=== PATIENT | male | born 1995 | race American Indian/Alaskan Native ===

== ENCOUNTER 2020-12-22 18:05 | Inpatient (IN) | payer OTHER ==
[2020-12-22] MEDS ORDERED: LIP THERAPY VASELINE TP PRN (18:21)
[2020-12-22] MEDS ORDERED: MINERAL OIL/PETROLATUM, WHITE OPHTH OINT 3.5 GM OU PRN (18:21)
[2020-12-22] MEDS ORDERED: SODIUM CHLORIDE 0.9% 1000 ML 1,000 ML IV ONE (18:22)
--- NOTE | 2020-12-22 18:28 | Emergency Department Report ---
HPI - General Time Seen by Provider: 12/22/20 18:21 - HPI HPI: This is a 25-year-old -[place] male who presents to the emergency department with the complaint of respiratory distress. Initially it was thought that the patient was having an asthma attack. He has been complaining of shortness of breath and wheezing over the past 1 to 2 days. Allegedly the patient has been using either his albuterol inhaler or nebulizer without much relief. Patient came home this afternoon and collapsed in the bathroom. EMS was called and found the patient in respiratory distress and unresponsive. He received bag valve ventilation and they attempted to intubate the patient but he was clamped down. He received Solu-Medrol and magnesium and then just before arrival he received a dose of epinephrine. He was brought into room #21 where the patient does appear to have very diminished breath sounds with wheezing heard. He is extremely altered but became very combative. After about 1 to 2 minutes of being combative, the patient suddenly went limp and it was difficult to palpate a pulse. CPR was initiated. The patient was intubated, received 2 rounds of epinephrine, 1 dose of sodium bicarbonate and had ROSC. I was later notified that the patient's girlfriend is outside and says that he may have taken some Xanax and potentially something called "bishop." He has never been to this emergency department previously. ED Review of Systems ROS: Stated complaint: ASTHMA/ELKIN Other details as noted in HPI Comment: Unobtainable due to pts medical conditions Physical Exam - Physical Exam Physical Exam: GENERAL: The patient is well-developed well-nourished. HENT: Normocephalic. Atraumatic. Patient has moist mucous membranes. EYES: Pupils equal reactive to light bilaterally. NECK: Supple. Trachea is midline. CHEST/LUNGS: Severely decreased breath sounds. Shallow respirations. Some wheezing heard throughout the chest. HEART/CARDIOVASCULAR: Regular. There is moderate tachycardia. There is no murmur. ABDOMEN: Abdomen is soft, nontender. Patient has normal bowel sounds. SKIN: Skin is warm and dry. NEURO: Patient is awake but confused and combative. Not following commands. MUSCULOSKELETAL: There is no obvious deformity. There is no limitation range of motion. - ABG Interpretation Ph: 7.142 PCO2: 60 PO2: 606 Bicarbonate: 20 Interpretation: respiratory acidosis, metabolic acidosis - Central Line Placement Right Femoral Consent Obtained: emergent situation Prep: mask, gown, gloves Central Line Prep: Chlorhexidine scrub Ultrasound Used for Placement: No Central Line Lumen Inserted: triple Reason for Insertion: Volume Resuscitation Bloods Obtained for Lab: Yes Central Line Position: good blood return, all ports aspirated, flus, sutured in place with nyl Dressing Applied: Tegaderm Patient Tolerated Procedure: well Complications: none - Intubation Time Out Performed: No Laryngoscope: other (Glidescope) Size: 4 ET Tube Size: 7.5 Tube Secured Depth (cm): 24 Tube Secured Location: teeth Tube Placement Confirmation: visualized tube passing t, equal breath sounds bilat, confirmation by capnometr Intubation Complications: none ED Medical Decision Making - Lab Data Result diagrams: 12/22/20 18:47 12/22/20 18:47 Lab Results 12/22/20 12/22/20 12/22/20 Range/Units 18:05 18:11 18:47 WBC 14.0 H (4.5-11.0) K/mm3 RBC 4.10 (3.65-5.03) M/mm3 Hgb 13.2 (11.8-15.2) gm/dl Hct 40.9 (35.5-45.6) % MCV 100 H (84-94) fl MCH 32 (28-32) pg MCHC 32 (32-34) % RDW 13.9 (13.2-15.2) % Plt Count 228 (140-440) K/mm3 Lymph # (Auto) Inspector Sheet Metal Parts Add Manual Diff Complete Total Counted 100 Seg Neuts % (Manual) 42.0 (40.0-70.0) % Lymphocytes % (Manual) 51.0 H (13.4-35.0) % Monocytes % (Manual) 2.0 (0.0-7.3) % Eosinophils % (Manual) 5.0 H (0.0-4.3) % Nucleated RBC % Not Reportable Seg Neutrophils # Man 5.9 (1.8-7.7) K/mm3 Band Neutrophils # 0.0 K/mm3 Lymphocytes # (Manual) 7.1 H (1.2-5.4) K/mm3 Abs React Lymphs (Man) 0.0 K/mm3 Monocytes # (Manual) 0.3 (0.0-0.8) K/mm3 Eosinophils # (Manual) 0.7 H (0.0-0.4) K/mm3 Basophils # (Manual) 0.0 (0.0-0.1) K/mm3 Metamyelocytes # 0.0 K/mm3 Myelocytes # 0.0 K/mm3 Promyelocytes # 0.0 K/mm3 Blast Cells # 0.0 K/mm3 WBC Morphology Not Reportable Hypersegmented Neuts Not Reportable Hyposegmented Neuts Not Reportable Hypogranular Neuts Not Reportable Smudge Cells Not Reportable Toxic Granulation Not Reportable Toxic Vacuolation Not Reportable Dohle Bodies Not Reportable Pelger-Huet Anomaly Not Reportable Kasia Rods Not Reportable Platelet Estimate Consistent w auto Clumped Platelets Not Reportable Plt Clumps, EDTA Not Reportable Large Platelets Not Reportable Giant Platelets Not Reportable Platelet Satelliting Not Reportable Plt Morphology Comment Not Reportable RBC Morphology Normal Dimorphic RBCs Not Reportable Polychromasia Not Reportable Hypochromasia Not Reportable Poikilocytosis Not Reportable Anisocytosis Not Reportable Microcytosis Not Reportable Macrocytosis Not Reportable Spherocytes Not Reportable Pappenheimer Bodies Not Reportable Sickle Cells Not Reportable Target Cells Not Reportable Tear Drop Cells Not Reportable Ovalocytes Not Reportable Helmet Cells Not Reportable [place] Bodies Not Reportable [place] Rings Not Reportable Joice Cells Not Reportable Bite Cells Not Reportable Crenated Cell Not Reportable Elliptocytes Not Reportable Acanthocytes (Spur) Not Reportable Rouleaux Not Reportable Hemoglobin C Crystals Not Reportable Schistocytes Not Reportable Malaria parasites Not Reportable Dave Bodies Not Reportable Hem Pathologist Commnt No PT (12.2-14.9) Sec. INR (0.87-1.13) APTT (24.2-36.6) Sec. D-Dimer (0-234) ng/mlDDU ABG pH (7.320-7.450) POC ABG pCO2 (32.0-48.0) mmHg POC ABG pO2 (83-108) mmHg POC ABG HCO3 ABG O2 Saturation (0-100) POC ABG Base Excess ABG Hemoglobin (12.0-17.5) ABG Oxyhemoglobin (94-98) ABG Methemoglobin (0.0-1.5) ABG Sodium (136.0-145.0) mmol/L ABG Potassium (3.40-4.50) mmol/L ABG Chloride (98-107) mmol/L ABG Glucose (65-95) mg/dL Carboxyhemoglobin (0.5-1.5) FiO2 % Sodium (137-145) mmol/L Potassium (3.6-5.0) mmol/L Chloride (98-107) mmol/L Carbon Dioxide (22-30) mmol/L Anion Gap mmol/L BUN (9-20) mg/dL Creatinine (0.8-1.3) mg/dL Estimated GFR ml/min BUN/Creatinine Ratio % Glucose (75-100) mg/dL POC Glucose 119 H (70-105) mg/dL Lactic Acid (0.7-2.0) mmol/L Calcium (8.4-10.2) mg/dL Total Bilirubin (0.1-1.2) mg/dL AST (5-40) units/L ALT (7-56) units/L Alkaline Phosphatase (35-129) units/L Ammonia (25-60) umol/L Total Creatine Kinase (55-170) units/L Troponin T (0.00-0.029) ng/mL Total Protein (6.3-8.2) g/dL Albumin (3.9-5) g/dL Albumin/Globulin Ratio % Arterial Blood Glucose (65-95) mg/dL Arterial Blood Ionized Calcium (4.6-5.3) mg/dL Salicylates (2.8-20.0) mg/dL Urine Opiates Screen Negative Urine Methadone Screen Negative Acetaminophen (10.0-30.0) ug/mL Ur Barbiturates Screen Negative Ur Phencyclidine Scrn Negative Ur Amphetamines Screen Negative U Benzodiazepines Scrn Negative Urine Cocaine Screen Negative U Marijuana (THC) Screen Positive Drugs of Abuse Note Disclamer Plasma/Serum Alcohol (0-0.07) % 12/22/20 12/22/20 12/22/20 Range/Units 18:47 18:47 18:47 WBC (4.5-11.0) K/mm3 RBC (3.65-5.03) M/mm3 Hgb (11.8-15.2) gm/dl Hct (35.5-45.6) % MCV (84-94) fl MCH (28-32) pg MCHC (32-34) % RDW (13.2-15.2) % Plt Count (140-440) K/mm3 Lymph # (Auto) Add Manual Diff Total Counted Seg Neuts % (Manual) (40.0-70.0) % Lymphocytes % (Manual) (13.4-35.0) % Monocytes % (Manual) (0.0-7.3) % Eosinophils % (Manual) (0.0-4.3) % Nucleated RBC % Seg Neutrophils # Man (1.8-7.7) K/mm3 Band Neutrophils # K/mm3 Lymphocytes # (Manual) (1.2-5.4) K/mm3 Abs React Lymphs (Man) K/mm3 Monocytes # (Manual) (0.0-0.8) K/mm3 Eosinophils # (Manual) (0.0-0.4) K/mm3 Basophils # (Manual) (0.0-0.1) K/mm3 Metamyelocytes # K/mm3 Myelocytes # K/mm3 Promyelocytes # K/mm3 Blast Cells # K/mm3 WBC Morphology Hypersegmented Neuts Hyposegmented Neuts Hypogranular Neuts Smudge Cells Toxic Granulation Toxic Vacuolation Dohle Bodies Pelger-Huet Anomaly Kasia Rods Platelet Estimate Clumped Platelets Plt Clumps, EDTA Large Platelets Giant Platelets Platelet Satelliting Plt Morphology Comment RBC Morphology Dimorphic RBCs Polychromasia Hypochromasia Poikilocytosis Anisocytosis Microcytosis Macrocytosis Spherocytes Pappenheimer Bodies Sickle Cells Target Cells Tear Drop Cells Ovalocytes Helmet Cells [place] Bodies [place] Rings Joice Cells Bite Cells Crenated Cell Elliptocytes Acanthocytes (Spur) Rouleaux Hemoglobin C Crystals Schistocytes Malaria parasites Dave Bodies Hem Pathologist Commnt PT 16.0 H (12.2-14.9) Sec. INR 1.30 H (0.87-1.13) APTT 40.8 H (24.2-36.6) Sec. D-Dimer (0-234) ng/mlDDU ABG pH (7.320-7.450) POC ABG pCO2 (32.0-48.0) mmHg POC ABG pO2 (83-108) mmHg POC ABG HCO3 ABG O2 Saturation (0-100) POC ABG Base Excess ABG Hemoglobin (12.0-17.5) ABG Oxyhemoglobin (94-98) ABG Methemoglobin (0.0-1.5) ABG Sodium (136.0-145.0) mmol/L ABG Potassium (3.40-4.50) mmol/L ABG Chloride (98-107) mmol/L ABG Glucose (65-95) mg/dL Carboxyhemoglobin (0.5-1.5) FiO2 % Sodium 144 (137-145) mmol/L Potassium 5.1 H (3.6-5.0) mmol/L Chloride 102.1 (98-107) mmol/L Carbon Dioxide 11 L (22-30) mmol/L Anion Gap 36 mmol/L BUN 11 (9-20) mg/dL Creatinine 1.9 H (0.8-1.3) mg/dL Estimated GFR 43 ml/min BUN/Creatinine Ratio 6 % Glucose 132 H (75-100) mg/dL POC Glucose (70-105) mg/dL Lactic Acid 17.30 H* (0.7-2.0) mmol/L Calcium 8.9 (8.4-10.2) mg/dL Total Bilirubin 1.00 (0.1-1.2) mg/dL AST 47 H (5-40) units/L ALT 24 (7-56) units/L Alkaline Phosphatase 60 (35-129) units/L Ammonia (25-60) umol/L Total Creatine Kinase 830 H (55-170) units/L Troponin T < 0.010 (0.00-0.029) ng/mL Total Protein 5.8 L (6.3-8.2) g/dL Albumin 3.7 L (3.9-5) g/dL Albumin/Globulin Ratio 1.8 % Arterial Blood Glucose (65-95) mg/dL Arterial Blood Ionized Calcium (4.6-5.3) mg/dL Salicylates (2.8-20.0) mg/dL Urine Opiates Screen Urine Methadone Screen Acetaminophen (10.0-30.0) ug/mL Ur Barbiturates Screen Ur Phencyclidine Scrn Ur Amphetamines Screen U Benzodiazepines Scrn Urine Cocaine Screen U Marijuana (THC) Screen Drugs of Abuse Note Plasma/Serum Alcohol (0-0.07) % 12/22/20 12/22/20 12/22/20 Range/Units 18:47 18:47 18:47 WBC (4.5-11.0) K/mm3 RBC (3.65-5.03) M/mm3 Hgb (11.8-15.2) gm/dl Hct (35.5-45.6) % MCV (84-94) fl MCH (28-32) pg MCHC (32-34) % RDW (13.2-15.2) % Plt Count (140-440) K/mm3 Lymph # (Auto) Add Manual Diff Total Counted Seg Neuts % (Manual) (40.0-70.0) % Lymphocytes % (Manual) (13.4-35.0) % Monocytes % (Manual) (0.0-7.3) % Eosinophils % (Manual) (0.0-4.3) % Nucleated RBC % Seg Neutrophils # Man (1.8-7.7) K/mm3 Band Neutrophils # K/mm3 Lymphocytes # (Manual) (1.2-5.4) K/mm3 Abs React Lymphs (Man) K/mm3 Monocytes # (Manual) (0.0-0.8) K/mm3 Eosinophils # (Manual) (0.0-0.4) K/mm3 Basophils # (Manual) (0.0-0.1) K/mm3 Metamyelocytes # K/mm3 Myelocytes # K/mm3 Promyelocytes # K/mm3 Blast Cells # K/mm3 WBC Morphology Hypersegmented Neuts Hyposegmented Neuts Hypogranular Neuts Smudge Cells Toxic Granulation Toxic Vacuolation Dohle Bodies Pelger-Huet Anomaly Kasia Rods Platelet Estimate Clumped Platelets Plt Clumps, EDTA Large Platelets Giant Platelets Platelet Satelliting Plt Morphology Comment RBC Morphology Dimorphic RBCs Polychromasia Hypochromasia Poikilocytosis Anisocytosis Microcytosis Macrocytosis Spherocytes Pappenheimer Bodies Sickle Cells Target Cells Tear Drop Cells Ovalocytes Helmet Cells [place] Bodies [place] Rings Makayla Cells Bite Cells Crenated Cell Elliptocytes Acanthocytes (Spur) Rouleaux Hemoglobin C Crystals Schistocytes Malaria parasites Dave Bodies Hem Pathologist Commnt PT (12.2-14.9) Sec. INR (0.87-1.13) APTT (24.2-36.6) Sec. D-Dimer (0-234) ng/mlDDU ABG pH (7.320-7.450) POC ABG pCO2 (32.0-48.0) mmHg POC ABG pO2 (83-108) mmHg POC ABG HCO3 ABG O2 Saturation (0-100) POC ABG Base Excess ABG Hemoglobin (12.0-17.5) ABG Oxyhemoglobin (94-98) ABG Methemoglobin (0.0-1.5) ABG Sodium (136.0-145.0) mmol/L ABG Potassium (3.40-4.50) mmol/L ABG Chloride (98-107) mmol/L ABG Glucose (65-95) mg/dL Carboxyhemoglobin (0.5-1.5) FiO2 % Sodium (137-145) mmol/L Potassium (3.6-5.0) mmol/L Chloride (98-107) mmol/L Carbon Dioxide (22-30) mmol/L Anion Gap mmol/L BUN (9-20) mg/dL Creatinine (0.8-1.3) mg/dL Estimated GFR ml/min BUN/Creatinine Ratio % Glucose (75-100) mg/dL POC Glucose (70-105) mg/dL Lactic Acid (0.7-2.0) mmol/L Calcium (8.4-10.2) mg/dL Total Bilirubin (0.1-1.2) mg/dL AST (5-40) units/L ALT (7-56) units/L Alkaline Phosphatase (35-129) units/L Ammonia 690.0 H (25-60) umol/L Total Creatine Kinase (55-170) units/L Troponin T (0.00-0.029) ng/mL Total Protein (6.3-8.2) g/dL Albumin (3.9-5) g/dL Albumin/Globulin Ratio % Arterial Blood Glucose (65-95) mg/dL Arterial Blood Ionized Calcium (4.6-5.3) mg/dL Salicylates < 0.3 L (2.8-20.0) mg/dL Urine Opiates Screen Urine Methadone Screen Acetaminophen 5.0 L (10.0-30.0) ug/mL Ur Barbiturates Screen Ur Phencyclidine Scrn Ur Amphetamines Screen U Benzodiazepines Scrn Urine Cocaine Screen U Marijuana (THC) Screen Drugs of Abuse Note Plasma/Serum Alcohol (0-0.07) % 12/22/20 12/22/20 12/22/20 Range/Units 18:47 19:41 20:18 WBC (4.5-11.0) K/mm3 RBC (3.65-5.03) M/mm3 Hgb (11.8-15.2) gm/dl Hct (35.5-45.6) % MCV (84-94) fl MCH (28-32) pg MCHC (32-34) % RDW (13.2-15.2) % Plt Count (140-440) K/mm3 Lymph # (Auto) Add Manual Diff Total Counted Seg Neuts % (Manual) (40.0-70.0) % Lymphocytes % (Manual) (13.4-35.0) % Monocytes % (Manual) (0.0-7.3) % Eosinophils % (Manual) (0.0-4.3) % Nucleated RBC % Seg Neutrophils # Man (1.8-7.7) K/mm3 Band Neutrophils # K/mm3 Lymphocytes # (Manual) (1.2-5.4) K/mm3 Abs React Lymphs (Man) K/mm3 Monocytes # (Manual) (0.0-0.8) K/mm3 Eosinophils # (Manual) (0.0-0.4) K/mm3 Basophils # (Manual) (0.0-0.1) K/mm3 Metamyelocytes # K/mm3 Myelocytes # K/mm3 Promyelocytes # K/mm3 Blast Cells # K/mm3 WBC Morphology Hypersegmented Neuts Hyposegmented Neuts Hypogranular Neuts Smudge Cells Toxic Granulation Toxic Vacuolation Dohle Bodies Pelger-Huet Anomaly Kasia Rods Platelet Estimate Clumped Platelets Plt Clumps, EDTA Large Platelets Giant Platelets Platelet Satelliting Plt Morphology Comment RBC Morphology Dimorphic RBCs Polychromasia Hypochromasia Poikilocytosis Anisocytosis Microcytosis Macrocytosis Spherocytes Pappenheimer Bodies Sickle Cells Target Cells Tear Drop Cells Ovalocytes Helmet Cells [place] Bodies [place] Rings Makayla Cells Bite Cells Crenated Cell Elliptocytes Acanthocytes (Spur) Rouleaux Hemoglobin C Crystals Schistocytes Malaria parasites Dave Bodies Hem Pathologist Commnt PT (12.2-14.9) Sec. INR (0.87-1.13) APTT (24.2-36.6) Sec. D-Dimer 420.88 H (0-234) ng/mlDDU ABG pH 7.142 L (7.320-7.450) POC ABG pCO2 60.1 H (32.0-48.0) mmHg POC ABG pO2 606.7 H (83-108) mmHg POC ABG HCO3 20.1 ABG O2 Saturation 99.9 (0-100) POC ABG Base Excess -9.7 ABG Hemoglobin 15.4 (12.0-17.5) ABG Oxyhemoglobin 99.7 H (94-98) ABG Methemoglobin 0.2 (0.0-1.5) ABG Sodium 139.5 (136.0-145.0) mmol/L ABG Potassium 4.4 (3.40-4.50) mmol/L ABG Chloride 107.0 (98-107) mmol/L ABG Glucose 81 (65-95) mg/dL Carboxyhemoglobin 0 L (0.5-1.5) FiO2 % 100.0 Sodium (137-145) mmol/L Potassium (3.6-5.0) mmol/L Chloride (98-107) mmol/L Carbon Dioxide (22-30) mmol/L Anion Gap mmol/L BUN (9-20) mg/dL Creatinine (0.8-1.3) mg/dL Estimated GFR ml/min BUN/Creatinine Ratio % Glucose (75-100) mg/dL POC Glucose (70-105) mg/dL Lactic Acid (0.7-2.0) mmol/L Calcium (8.4-10.2) mg/dL Total Bilirubin (0.1-1.2) mg/dL AST (5-40) units/L ALT (7-56) units/L Alkaline Phosphatase (35-129) units/L Ammonia (25-60) umol/L Total Creatine Kinase (55-170) units/L Troponin T (0.00-0.029) ng/mL Total Protein (6.3-8.2) g/dL Albumin (3.9-5) g/dL Albumin/Globulin Ratio % Arterial Blood Glucose 81 (65-95) mg/dL Arterial Blood Ionized Calcium 4.8 (4.6-5.3) mg/dL Salicylates (2.8-20.0) mg/dL Urine Opiates Screen Urine Methadone Screen Acetaminophen (10.0-30.0) ug/mL Ur Barbiturates Screen Ur Phencyclidine Scrn Ur Amphetamines Screen U Benzodiazepines Scrn Urine Cocaine Screen U Marijuana (THC) Screen Drugs of Abuse Note Plasma/Serum Alcohol < 0.01 (0-0.07) % - EKG Data -: EKG Interpreted by Me EKG shows normal: sinus rhythm, axis (Left axis deviation), intervals, QRS complexes (Left anterior fascicular block), ST-T waves Rate: normal - EKG Data When compared to previous EKG there are: previous EKG unavailable Interpretation: other (Sinus rhythm at 91 bpm, left axis deviation, left anterior fascicular block. No ST elevation CA) - Radiology Data Radiology results: report reviewed, image reviewed interpreted by me: Chest x-ray shows an endotracheal tube a few centimeters above the myrna. No pneumonia, pneumothorax, pleural effusions. CT HEAD WITHOUT CONTRAST INDICATION / CLINICAL INFORMATION: Altered mental status. TECHNIQUE: All CT scans at this location are performed using CT dose reduction for ALARA by means of automated exposure control. COMPARISON: None available. FINDINGS: HEMORRHAGE: None. EXTRA-AXIAL SPACES: Normal in size and morphology for the patient's age. VENTRICULAR SYSTEM: Normal in size and morphology for the patient's age. CEREBRAL PARENCHYMA: No significant abnormality. No acute territorial infarct. MIDLINE SHIFT OR HERNIATION: None. CEREBELLUM / BRAINSTEM: No significant abnormality. ORBITS: Normal as visualized. SOFT TISSUES of HEAD: No significant abnormality. CALVARIUM: No s ignificant abnormality. PARANASAL SINUSES / MASTOID AIR CELLS: Scattered fluid is seen throughout the ethmoid sinuses. ADDITIONAL FINDINGS: None. IMPRESSION: No acute intracranial abnormality. Critical Care Time: Yes Critical care time in (mins) excluding proc time.: 40 Critical care attestation.: If time is entered above; I have spent that time in minutes in the direct care of this critically ill patient, excluding procedure time. Critical care time was spent on this patient in doing his initial evaluation, multiple reevaluations, supervision of ACLS protocol, IV antibiotics, IV fluid resuscitation, multiple discussions with the patient's mother, discussion with the hospitalist service. This does not include the time spent on separately billable procedures such as the intubation and the central line placement. Critical Care Time: 40 minutes ED Disposition Clinical Impression: Cardiac arrest, ITZEL (acute kidney injury), Lactic acidosis Acute respiratory failure Qualifiers: Respiratory failure complication: hypercapnia Qualified Code(s): J96.02 - Acute respiratory failure with hypercapnia UTI (urinary tract infection) Qualifiers: Urinary tract infection type: acute cystitis Hematuria presence: without hematuria Qualified Code(s): N30.00 - Acute cystitis without hematuria Disposition: DC-09 OP ADMIT IP TO THIS HOSP Is pt being admited?: Yes Condition: Critical Time of Disposition: 22:15
[2020-12-22] MEDS: fentaNYL DRIP Premix 2,000 MCG/100 ML BAG IV SCH (18:30)
[2020-12-22] MEDS: fentaNYL 100 MCG/2 ML INJ IV PRN ×3 (18:40→19:00)
[2020-12-22 19:02] LABS: Hematocrit 40.9 % (35.5-45.6); Hemoglobin 13.2 gm/dl (11.8-15.2); Mean Corpuscular HGB Conc 32 % (32-34); Mean Corpuscular Volume 100 fl (84-94); Platelet Count 228 K/mm3 (140-440); Red Cell Distribution Width 13.9 % (13.2-15.2)
[2020-12-22 19:08] LABS: Bilirubin,Urine NEG (Negative); Blood,Urine NEG (Negative); Color,Urine Amber (Yellow)
[2020-12-22 19:12] LABS: Protein,Urine >500 mg/dL (Negative)
[2020-12-22 19:21] LABS: INR 1.3 (0.87-1.13)
[2020-12-22 19:22] LABS: Partial Thromboplastin Time 40.8 Sec. (24.2-36.6)
[2020-12-22] MEDS ORDERED: cefTRIAXone/NS 1 GM/50 ML 1 GM/50 ML BAG IV ONE (19:26)
[2020-12-22 19:27] LABS: Alanine Aminotransferase 24 units/L (7-56); Albumin 3.7 g/dL (3.9-5); BUN/Creatinine Ratio 6; Blood Urea Nitrogen 11 mg/dL (9-20); Calcium 8.9 mg/dL (8.4-10.2); Hemolysis Index 16
[2020-12-22 19:27] LABS: Amphetamine Screen,Urine Negative; Benzodiazepines Screen,Urine Negative; Cocaine Screen,Urine Negative; Methadone Screen,Urine Negative
[2020-12-22] MEDS: MIDAZOLAM 100 MG in SODIUM CHLORIDE 0.9% 80 ML IV SCH (19:41)
--- NOTE | 2020-12-22 19:46 | XRay Report ---
CHEST 1 VIEW 12/22/2020 6:38 PM INDICATION / CLINICAL INFORMATION: ETT placement. COMPARISON: None available. FINDINGS: SUPPORT DEVICES: Endotracheal tube has been placed 5.4 cm above the myrna. Esophagogastric tube has been placed below the diaphragm into the stomach. HEART / MEDIASTINUM: No significant abnormality. LUNGS / PLEURA: No significant pulmonary or pleural abnormality. No pneumothorax. ADDITIONAL FINDINGS: No significant additional findings. IMPRESSION: 1. Endotracheal tube in expected position. Signer Name: David Chaudhry MD Signed: 12/22/2020 7:41 PM Workstation Name: [id number]
[2020-12-22 19:51] LABS: Total Cells Counted 100
[2020-12-22 19:51] LABS: Cannabinoid Screen,Urine Positive; Opiate Screen,Urine Negative
[2020-12-22 19:52] LABS: Platelet Estimate Consistent w Auto; RBC Morphology Normal
[2020-12-22] MEDS ORDERED: EPINEPHrine 1 MG/10 ML SYRINGE ONE (21:45)
[2020-12-22] MEDS ORDERED: SODIUM BICARB 8.4% 50 MEQ/50 ML SYRINGE IV ONE (21:45)
--- NOTE | 2020-12-22 22:22 | Cat Scan Report ---
CT HEAD WITHOUT CONTRAST INDICATION / CLINICAL INFORMATION: Altered mental status. TECHNIQUE: All CT scans at this location are performed using CT dose reduction for ALARA by means of automated e xposure control. COMPARISON: None available. FINDINGS: HEMORRHAGE: None. EXTRA-AXIAL SPACES: Normal in size and morphology for the patient's age. VENTRICULAR SYSTEM: Normal in size and morphology for the patient's age. CEREBRAL PARENCHYMA: No significant abnormality. No acute territorial infarct. MIDLINE SHIFT OR HERNIATION: None. CEREBELLUM / BRAINSTEM: No significant abnormality. ORBITS: Normal as visualized. SOFT TISSUES of HEAD: No significant abnormality. CALVARIUM: No significant abnormality. PARANASAL SINUSES / MASTOID AIR CELLS: Scattered fluid is seen throughout the ethmoid sinuses. ADDITIONAL FINDINGS: None. IMPRESSION: No acute intracranial abnormality. Signer Name: Joseph Gomez MD Signed: 12/22/2020 10:17 PM Workstation Name: [id number]
[2020-12-22] MEDS ORDERED: MORPHINE 2 MG/1 ML INJ IV PRN (23:21)
[2020-12-22] MEDS ORDERED: ONDANSETRON 4 MG/2 ML INJ IV PRN (23:21)
[2020-12-22] MEDS ORDERED: MAGNESIUM HYDROXIDE (MOM) ORAL LIQD UDC PO PRN (23:21)
--- NOTE | 2020-12-22 23:40 | History and Physical Report ---
History of Present Illness Date of examination: 12/22/20 Date of admission: 12/22/20 22:15 Chief complaint: Respiratory Distress History of present illness: 25-year-old -[place]ian male with known history of asthma presents to the emergency room today with respiratory distress. He has been having shortness of breath and wheezing over the past 1 to 2 days. Was also said to have been using his inhaler without any significant improvement. EMS was called and patient was found to be in respiratory distress and became unresponsive. He received bag valve ventilation. Was said to have received steroids, epinephrine and magnesium sulfate prior to my evaluation. Patient was said to have coded upon arrival in the emergency room and was subsequently intubated. Further information gathered from the ER staff indicates that patient may have taking some Xanax and something called 'bishop'. 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 Work-up in the emergency room today reveals elevated lactic acid level, elevated creatinine of 1.9, total creatinine kinase of 830, and urinalysis revealing UTI. Chest x-ray and CT scan of the head were unremarkable. UDS was positive for marijuana. Patient is being admitted for anaphylactic reaction, asthma exacerbation and UTI. Past History Past Medical History: other (Asthma) Past Surgical History: No surgical history Social history: no significant social history Family history: no significant family history Medications and Allergies Allergies Allergy/AdvReac Type Severity Reaction Status Date / Time nut - unspecified Allergy Swelling Verified 12/22/20 21:15 Active Meds: Active Medications Albuterol/Ipratropium (Ipratropium/Albuterol Sulfate 3 Ml Ampul.Neb) 1 ampul IH Q6HRT [facility] Fentanyl (Fentanyl 100 Mcg/2 Ml Inj) 50 mcg IV Q10MIN PRN PRN Reason: ANALGESIA Last Admin: 12/22/20 19:00 Dose: 50 mcg Documented by: Heparin Sodium (Porcine) (Heparin 5,000 Unit/1 Ml Vial) 5,000 unit SUB-Q Q8HR [facility] Hydrophilic Ointment (Lip Therapy Vaseline) 1 applic TP Q2HR PRN PRN Reason: Dry Lips Fentanyl Citrate (Fentanyl Drip Premix) 2,000 mcg in 100 mls @ 4.083 mls/hr IV TITR [facility]KKI; Protocol Last Titration: 12/22/20 20:00 Dose: 2 mcg/kg/hr, 8.165 mls/hr Documented by: Midazolam HCl 100 mg/ Sodium (Chloride) 100 mls @ 2 mls/hr IV TITR [facility]KKI; Protocol Last Titration: 12/22/20 20:30 Dose: 3 mg/hr, 3 mls/hr Documented by: Sodium Chloride (Nacl 0.9% 1000 Ml) 1,000 mls @ 125 mls/hr IV DIRECT [facility] Ceftriaxone Sodium (Rocephin/Ns 1 Gm/50 Ml) 1 gm in 50 mls @ 100 mls/hr IV Q24H [facility]; Protocol Magnesium Hydroxide (Magnesium Hydroxide (Mom) Oral Liqd Udc) 30 ml PO Q4H PRN PRN Reason: Constipation Methylprednisolone Sodium Succinate (Methylprednisolone Sod Succinate 40 Mg/1 Ml Inj) 40 mg IV Q8HR [facility] Morphine Sulfate (Morphine 2 Mg/1 Ml Inj) 2 mg IV Q4H PRN PRN Reason: Pain, Moderate (4-6) Multi-Ingred Cream/Lotion/Oil/Oint (Mineral Oil/Petrolatum, White Ophth Oint 3.5 Gm) 1 applic OU Q4HR PRN PRN Reason: Dry Eye(s) Ondansetron HCl (Ondansetron 4 Mg/2 Ml Inj) 4 mg IV Q8H PRN PRN Reason: Nausea And Vomiting Sodium Chloride (Sodium Chloride 0.9% 10 Ml Flush Syringe) 10 ml IV BID [facility] Sodium Chloride (Sodium Chloride 0.9% 10 Ml Flush Syringe) 10 ml IV PRN PRN PRN Reason: LINE FLUSH Review of Systems ROS unobtainable: due to endotracheal tube Exam - Constitutional Vitals: Temp Pulse Resp BP Pulse Ox 92 H 18 117/69 99 12/22/20 23:00 12/22/20 23:00 12/22/20 23:00 12/22/20 23:00 General appearance: Present: well-nourished, other (Intubated) - EENT Eyes: Present: PERRL, EOM intact. Absent: scleral icterus ENT: hearing intact, clear oral mucosa, dentition normal - Neck Neck: Present: supple, normal ROM - Respiratory Respiratory effort: other (Currently intubated) Respiratory: bilateral: wheezing - Cardiovascular Rhythm: regular Heart Sounds: Present: S1 & S2. Absent: gallop, systolic murmur, diastolic murmur, rub, click - Extremities Extremities: no ischemia, pulses intact, pulses symmetrical, No edema, normal temperature, normal color, Full ROM Peripheral Pulses: within normal limits - Abdominal General gastrointestinal: Present: soft, non-tender, non-distended, normal bowel sounds. Absent: mass - Integumentary Integumentary: Present: clear, warm, dry. Absent: rash - Musculoskeletal Musculoskeletal: strength equal bilaterally - Psychiatric Psychiatric: appropriate mood/affect, intact judgment & insight, memory intact, cooperative - Neurologic Neurologic: CNII-XII intact, no focal deficits, moves all extremities HEART Score - HEART Score Troponin: Troponin T < 0.010 ng/mL (0.00-0.029) 12/22/20 18:47 Results - Labs CBC & Chem 7: 12/23/20 04:30 12/23/20 04:30 Labs: Abnormal lab results 12/22/20 12/22/20 12/22/20 Range/Units 18:11 18:47 18:47 WBC 14.0 H (4.5-11.0) K/mm3 MCV 100 H (84-94) fl Lymphocytes % (Manual) 51.0 H (13.4-35.0) % Eosinophils % (Manual) 5.0 H (0.0-4.3) % Lymphocytes # (Manual) 7.1 H (1.2-5.4) K/mm3 Eosinophils # (Manual) 0.7 H (0.0-0.4) K/mm3 PT 16.0 H (12.2-14.9) Sec. INR 1.30 H (0.87-1.13) APTT 40.8 H (24.2-36.6) Sec. D-Dimer (0-234) ng/mlDDU ABG pH (7.320-7.450) POC ABG pCO2 (32.0-48.0) mmHg POC ABG pO2 (83-108) mmHg ABG Oxyhemoglobin (94-98) Carboxyhemoglobin (0.5-1.5) Potassium (3.6-5.0) mmol/L Carbon Dioxide (22-30) mmol/L Creatinine (0.8-1.3) mg/dL Glucose (75-100) mg/dL POC Glucose 119 H (70-105) mg/dL Lactic Acid (0.7-2.0) mmol/L AST (5-40) units/L Ammonia (25-60) umol/L Total Creatine Kinase (55-170) units/L Total Protein (6.3-8.2) g/dL Albumin (3.9-5) g/dL Urine WBC (Auto) (0.0-6.0) /HPF Salicylates (2.8-20.0) mg/dL Acetaminophen (10.0-30.0) ug/mL 12/22/20 12/22/20 12/22/20 Range/Units 18:47 18:47 18:47 WBC (4.5-11.0) K/mm3 MCV (84-94) fl Lymphocytes % (Manual) (13.4-35.0) % Eosinophils % (Manual) (0.0-4.3) % Lymphocytes # (Manual) (1.2-5.4) K/mm3 Eosinophils # (Manual) (0.0-0.4) K/mm3 PT (12.2-14.9) Sec. INR (0.87-1.13) APTT (24.2-36.6) Sec. D-Dimer (0-234) ng/mlDDU ABG pH (7.320-7.450) POC ABG pCO2 (32.0-48.0) mmHg POC ABG pO2 (83-108) mmHg ABG Oxyhemoglobin (94-98) Carboxyhemoglobin (0.5-1.5) Potassium 5.1 H (3.6-5.0) mmol/L Carbon Dioxide 11 L (22-30) mmol/L Creatinine 1.9 H (0.8-1.3) mg/dL Glucose 132 H (75-100) mg/dL POC Glucose (70-105) mg/dL Lactic Acid 17.30 H* (0.7-2.0) mmol/L AST 47 H (5-40) units/L Ammonia 690.0 H (25-60) umol/L Total Creatine Kinase 830 H (55-170) units/L Total Protein 5.8 L (6.3-8.2) g/dL Albumin 3.7 L (3.9-5) g/dL Urine WBC (Auto) (0.0-6.0) /HPF Salicylates (2.8-20.0) mg/dL Acetaminophen (10.0-30.0) ug/mL 12/22/20 12/22/20 12/22/20 Range/Units 18:47 18:47 19:41 WBC (4.5-11.0) K/mm3 MCV (84-94) fl Lymphocytes % (Manual) (13.4-35.0) % Eosinophils % (Manual) (0.0-4.3) % Lymphocytes # (Manual) (1.2-5.4) K/mm3 Eosinophils # (Manual) (0.0-0.4) K/mm3 PT (12.2-14.9) Sec. INR (0.87-1.13) APTT (24.2-36.6) Sec. D-Dimer 420.88 H (0-234) ng/mlDDU ABG pH (7.320-7.450) POC ABG pCO2 (32.0-48.0) mmHg POC ABG pO2 (83-108) mmHg ABG Oxyhemoglobin (94-98) Carboxyhemoglobin (0.5-1.5) Potassium (3.6-5.0) mmol/L Carbon Dioxide (22-30) mmol/L Creatinine (0.8-1.3) mg/dL Glucose (75-100) mg/dL POC Glucose (70-105) mg/dL Lactic Acid (0.7-2.0) mmol/L AST (5-40) units/L Ammonia (25-60) umol/L Total Creatine Kinase (55-170) units/L Total Protein (6.3-8.2) g/dL Albumin (3.9-5) g/dL Urine WBC (Auto) (0.0-6.0) /HPF Salicylates < 0.3 L (2.8-20.0) mg/dL Acetaminophen 5.0 L (10.0-30.0) ug/mL 12/22/20 12/22/20 Range/Units 20:18 Unknown WBC (4.5-11.0) K/mm3 MCV (84-94) fl Lymphocytes % (Manual) (13.4-35.0) % Eosinophils % (Manual) (0.0-4.3) % Lymphocytes # (Manual) (1.2-5.4) K/mm3 Eosinophils # (Manual) (0.0-0.4) K/mm3 PT (12.2-14.9) Sec. INR (0.87-1.13) APTT (24.2-36.6) Sec. D-Dimer (0-234) ng/mlDDU ABG pH 7.142 L (7.320-7.450) POC ABG pCO2 60.1 H (32.0-48.0) mmHg POC ABG pO2 606.7 H (83-108) mmHg ABG Oxyhemoglobin 99.7 H (94-98) Carboxyhemoglobin 0 L (0.5-1.5) Potassium (3.6-5.0) mmol/L Carbon Dioxide (22-30) mmol/L Creatinine (0.8-1.3) mg/dL Glucose (75-100) mg/dL POC Glucose (70-105) mg/dL Lactic Acid (0.7-2.0) mmol/L AST (5-40) units/L Ammonia (25-60) umol/L Total Creatine Kinase (55-170) units/L Total Protein (6.3-8.2) g/dL Albumin (3.9-5) g/dL Urine WBC (Auto) 50.0 H (0.0-6.0) /HPF Salicylates (2.8-20.0) mg/dL Acetaminophen (10.0-30.0) ug/mL Assessment and Plan - Patient Problems (1) Acute respiratory failure Current Visit: Yes Status: Acute Qualifiers: Respiratory failure complication: hypercapnia Qualified Code(s): J96.02 - Acute respiratory failure with hypercapnia Plan to address problem: Possibly secondary to asthma exacerbation versus anaphylactic reaction Patient currently intubated and sedated We will place consult to special education teacher for further evaluation and recommendation. (2) Cardiac arrest Current Visit: Yes Status: Acute Plan to address problem: Patient successfully resuscitated in the emergency room. He is currently intubated. We will consult cardiology for evaluation. (3) ITZEL (acute kidney injury) Current Visit: Yes Status: Acute Plan to address problem: Patient placed on IV fluid normal saline. We will monitor BUN and creatinine. Consult placed to nephrology for evaluation. (4) Lactic acidosis Current Visit: Yes Status: Acute Plan to address problem: We will continue patient on IV fluid and monitor lactic acid level. (5) UTI (urinary tract infection) Current Visit: Yes Status: Acute Qualifiers: Urinary tract infection type: acute cystitis Hematuria presence: without hematuria Qualified Code(s): N30.00 - Acute cystitis without hematuria Plan to address problem: Patient placed on empiric IV antibiotics. Will await urine culture result. (6) Rhabdomyolysis Current Visit: Yes Status: Acute Plan to address problem: We will monitor for creatinine kinase level and continue on IV fluid. (7) DVT prophylaxis Current Visit: Yes Status: Acute Plan to address problem: Patient placed on subcutaneous heparin. (8) Full code status Current Visit: Yes Status: Acute Plan to address problem: Patient is a full code.
[2020-12-23] MEDS ORDERED: EPINEPHrine 1 MG/10 ML SYRINGE ONE (00:24)
[2020-12-23] MEDS: IPRATROPIUM/ALBUTEROL SULFATE 3 ML AMPUL.NEB IH SCH ×4 (02:18→21:19)
[2020-12-23] MEDS: MIDAZOLAM 100 MG in SODIUM CHLORIDE 0.9% 80 ML IV SCH (05:25)
[2020-12-23] MEDS: fentaNYL DRIP Premix 2,000 MCG/100 ML BAG IV SCH (05:25)
[2020-12-23] MEDS: methylPREDNISolone Sod Succinate 40 MG/1 ML INJ IV SCH ×3 (05:26→21:09)
[2020-12-23] MEDS: SODIUM CHLORIDE 0.9% 1000 ML 1,000 ML IV SCH (05:26)
[2020-12-23] MEDS: HEPARIN 5,000 UNIT/1 ML VIAL SUB-Q SCH ×3 (05:26→21:09)
[2020-12-23 05:56] LABS: Hematocrit 42.6 % (35.5-45.6); Hemoglobin 14.5 gm/dl (11.8-15.2); Mean Corpuscular HGB Conc 34 % (32-34); Mean Corpuscular Volume 95 fl (84-94); Platelet Count 213 K/mm3 (140-440); Red Blood Count 4.47 M/mm3 (3.65-5.03); Red Cell Distribution Width 13.6 % (13.2-15.2)
[2020-12-23 06:16] LABS: Calcium 7.9 mg/dL (8.4-10.2)
[2020-12-23 06:26] LABS: INR 1.03 (0.87-1.13)
[2020-12-23 07:12] LABS: Total Cells Counted 100
[2020-12-23 07:13] LABS: Platelet Estimate Consistent w Auto; RBC Morphology Normal
--- NOTE | 2020-12-23 08:29 | XRay Report ---
CHEST - 1 VIEW 0756 hours INDICATION: follow up respiratory failure COMPARISON: Yesterday FINDINGS: Support devices: Stable support device positioning. Heart: Stable cardiomediastinal silhouette. Lungs/pleura: The lungs remain clear with no evidence for infiltrate, pleural fluid or pneumothorax. Additional findings: None. IMPRESSION: Unchanged exam. Unremarkable AP chest. Signer Name: Patrick Harmon Jr, MD Signed: 12/23/2020 8:24 AM Workstation Name: [id number]
[2020-12-23] MEDS ORDERED: SODIUM POLYSTYRENE 15 GM/60 ML ORAL LIQD PO SCH (10:00)
[2020-12-23] MEDS: cefTRIAXone/NS 1 GM/50 ML 1 GM/50 ML BAG IV SCH (10:04)
[2020-12-23] MEDS: FAMOTIDINE 20 MG/2 ML INJ IV SCH (10:04)
[2020-12-23] MEDS: LACTATED RINGERS 1,000 ML IV SCH ×2 (10:09→18:00)
--- NOTE | 2020-12-23 12:21 | Consultation ---
History of Present Illness Consult date: 12/23/20 Consult reason: cardiac arrest History of present illness: Patient is a 25-year who was brought in by EMS with altered mental status and in respiratory distress. It is reported that while in the emergency department, the patient became unresponsive. ACLS protocol was initiated with ROSC. There were no ventricular arrhythmias reported. Subsequently, he was intubated and admitted to CCU. Labs in the emergency department revealed lactic acidosis, WBC of 18.6, potassium of 5.5 with a creatinine of 2.3. Elevated ammonia level at 690. There is also evidence of rhabdomyolysis and UTI. Head CT scan reports no acute abnormality and a chest x-ray is negative. His ECG is sinus rhythm with poor R wave progression. Past History Past Medical History: other (Asthma) Past Surgical History: No surgical history Social history: no significant social history Family history: no significant family history Medications and Allergies Allergies Allergy/AdvReac Type Severity Reaction Status Date / Time nut - unspecified Allergy Swelling Verified 12/22/20 21:15 Active Meds: Active Medications Albuterol/Ipratropium (Ipratropium/Albuterol Sulfate 3 Ml Ampul.Neb) 1 ampul IH Q6HRT [facility] Last Admin: 12/23/20 07:47 Dose: 1 ampul Documented by: Famotidine (Famotidine 20 Mg/2 Ml Inj) 20 mg IV DAILY [facility] Last Admin: 12/23/20 10:04 Dose: 20 mg Documented by: Fentanyl (Fentanyl 100 Mcg/2 Ml Inj) 50 mcg IV Q10MIN PRN PRN Reason: ANALGESIA Last Admin: 12/22/20 19:00 Dose: 50 mcg Documented by: Heparin Sodium (Porcine) (Heparin 5,000 Unit/1 Ml Vial) 5,000 unit SUB-Q Q8HR [facility] Last Admin: 12/23/20 05:26 Dose: 5,000 unit Documented by: Hydrophilic Ointment (Lip Therapy Vaseline) 1 applic TP Q2HR PRN PRN Reason: Dry Lips Fentanyl Citrate (Fentanyl Drip Premix) 2,000 mcg in 100 mls @ 4.083 mls/hr IV TITR [facility]KKI; Protocol Last Titration: 12/23/20 10:39 Dose: 4 mcg/kg/hr, 16.33 mls/hr Documented by: Midazolam HCl 100 mg/ Sodium (Chloride) 100 mls @ 2 mls/hr IV TITR [facility]; Protocol Last Titration: 12/23/20 10:30 Dose: 1 mg/hr, 1 mls/hr Documented by: Sodium Chloride (Nacl 0.9% 1000 Ml) 1,000 mls @ 125 mls/hr IV DIRECT [facility] Last Infusion: 12/23/20 10:09 Dose: 0 mls/hr Documented by: Ceftriaxone Sodium (Rocephin/Ns 1 Gm/50 Ml) 1 gm in 50 mls @ 100 mls/hr IV Q24H [facility]; Protocol Last Admin: 12/23/20 10:04 Dose: 100 mls/hr Documented by: Lactated Ringer's (Lactated Ringers) 1,000 mls @ 150 mls/hr IV DIRECT [facility] Stop: 12/25/20 16:24 Last Admin: 12/23/20 10:09 Dose: 150 mls/hr Documented by: Magnesium Hydroxide (Magnesium Hydroxide (Mom) Oral Liqd Udc) 30 ml PO Q4H PRN PRN Reason: Constipation Methylprednisolone Sodium Succinate (Methylprednisolone Sod Succinate 40 Mg/1 Ml Inj) 40 mg IV Q8HR [facility] Last Admin: 12/23/20 05:26 Dose: 40 mg Documented by: Morphine Sulfate (Morphine 2 Mg/1 Ml Inj) 2 mg IV Q4H PRN PRN Reason: Pain, Moderate (4-6) Multi-Ingred Cream/Lotion/Oil/Oint (Mineral Oil/Petrolatum, White Ophth Oint 3.5 Gm) 1 applic OU Q4HR PRN PRN Reason: Dry Eye(s) Ondansetron HCl (Ondansetron 4 Mg/2 Ml Inj) 4 mg IV Q8H PRN PRN Reason: Nausea And Vomiting Sodium Chloride (Sodium Chloride 0.9% 10 Ml Flush Syringe) 10 ml IV BID [facility] Last Admin: 12/23/20 10:05 Dose: 10 ml Documented by: Sodium Chloride (Sodium Chloride 0.9% 10 Ml Flush Syringe) 10 ml IV PRN PRN PRN Reason: LINE FLUSH Review of Systems ROS unobtainable: due to endotracheal tube Physical Examination Vital Signs Pulse Resp BP Pulse Ox 100 H 12 139/73 98 12/22/20 18:05 12/22/20 18:05 12/22/20 18:05 12/22/20 18:05 General appearance: other (alert but remains intubated on the vent) Cardiac: Positive: Reg Rate and Rhythm Neuro: Positive: Grossly Intact Extremities: Absent: edema Results 12/23/20 04:30 12/23/20 04:30 Cardiac Enzymes 12/22/20 Range/Units 18:47 AST 47 H (5-40) units/L Coagulation 12/22/20 12/23/20 Range/Units 18:47 04:30 PT 16.0 H 13.3 (12.2-14.9) Sec. INR 1.30 H 1.03 (0.87-1.13) APTT 40.8 H (24.2-36.6) Sec. CBC 12/22/20 12/23/20 Range/Units 18:47 04:30 WBC 14.0 H 18.6 H (4.5-11.0) K/mm3 RBC 4.10 4.47 (3.65-5.03) M/mm3 Hgb 13.2 14.5 (11.8-15.2) gm/dl Hct 40.9 42.6 (35.5-45.6) % Plt Count 228 213 (140-440) K/mm3 Lymph # (Auto) Physicist Nuclear Comprehensive Metabolic Panel 12/22/20 12/23/20 Range/Units 18:47 04:30 Sodium 144 140 (137-145) mmol/L Potassium 5.1 H 5.5 H (3.6-5.0) mmol/L Chloride 102.1 102.9 (98-107) mmol/L Carbon Dioxide 11 L 22 D (22-30) mmol/L BUN 11 26 H (9-20) mg/dL Creatinine 1.9 H 2.3 H (0.8-1.3) mg/dL Glucose 132 H 133 H (75-100) mg/dL Calcium 8.9 7.9 L (8.4-10.2) mg/dL AST 47 H (5-40) units/L ALT 24 (7-56) units/L Alkaline Phosphatase 60 (35-129) units/L Total Protein 5.8 L (6.3-8.2) g/dL Albumin 3.7 L (3.9-5) g/dL Assessment and Plan - Patient Problems (1) Acute respiratory failure Current Visit: Yes Status: Acute Qualifiers: Qualified Code(s): J96.02 - Acute respiratory failure with hypercapnia
[2020-12-23 13:58] LABS: Bilirubin,Urine NEG (Negative); Blood,Urine LG (Negative); Color,Urine Yellow (Yellow); Mucus,Urine FEW /HPF; Urobilinogen,Urine < 2.0 mg/dL (<2.0)
--- NOTE | 2020-12-23 14:32 | Progress Note ---
Assessment and Plan Assessment and plan: 25-year-old -[place] male with known history of asthma presents to the emergency room today with respiratory distress. He has been having shortness of breath and wheezing over the past 1 to 2 days. Was also said to have been using his inhaler without any significant improvement. EMS was called and patient was found to be in respiratory distress and became unresponsive. He received bag valve ventilation. Was said to have received steroids, epinephrine and magnesium sulfate prior to my evaluation. Patient was said to have coded upon arrival in the emergency room and was subsequently intubated. Further information gathered from the ER staff indicates that patient may have taking some Xanax and something called 'bishop'. 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 Work-up in the emergency room today reveals elevated lactic acid level, elevated creatinine of 1.9, total creatinine kinase of 830, and urinalysis revealing UTI. Chest x-ray and CT scan of the head were unremarkable. UDS was positive for marijuana. Patient is being admitted for anaphylactic reaction, asthma exacerbation and UTI. 12/23/20: Cardiology input noted, no acute cardiac issues, counselling provided on TSH use. Continue gentle hydration and monitor, Worsening WBC likely from steroids. Renal faliure noted, will monitor in the setting of rhabdomyolysis Discussed with father outside the room. Anticipate the patient will be extubated today. (1) Acute respiratory failure Current Visit: Yes Status: Acute Qualifiers: Respiratory failure complication: hypercapnia Qualified Code(s): J96.02 - Acute respiratory failure with hypercapnia Plan to address problem: Possibly secondary to asthma exacerbation versus anaphylactic reaction Patient currently intubated and sedated We will place consult to investigations director for further evaluation and recommendation. (2) Cardiac arrest Current Visit: Yes Status: Acute Plan to address problem: Patient successfully resuscitated in the emergency room. He is currently intubated. We will consult cardiology for evaluation. (3) ITZEL (acute kidney injury) secondary to ATN as a complication from rha bdomyolysis Current Visit: Yes Status: Acute Plan to address problem: Patient placed on IV fluid normal saline. We will monitor BUN and creatinine. Consult placed to nephrology for evaluation. (4) Lactic acidosis Current Visit: Yes Status: Acute Plan to address problem: We will continue patient on IV fluid and monitor lactic acid level. (5) UTI (urinary tract infection) Current Visit: Yes Status: Acute Qualifiers: Urinary tract infection type: acute cystitis Hematuria presence: without hematuria Qualified Code(s): N30.00 - Acute cystitis without hematuria Plan to address problem: Patient placed on empiric IV antibiotics. Will await urine culture result. (6) Rhabdomyolysis Current Visit: Yes Status: Acute Plan to address problem: We will monitor for creatinine kinase level and continue on IV fluid. (7) THC use abuse extensive counseling provided to the patient verbalized understanding 50 minutes counseling done (8) DVT prophylaxis Current Visit: Yes Status: Acute Plan to address problem: Patient placed on subcutaneous heparin. (9) Full code status Current Visit: Yes Status: Acute Plan to address problem: Patient is a full code. The high probability of a clinically significant, sudden or life threatening deterioration of the [pulmonary, renal] system(s) required my full and direct attention, intervention and personal management. The aggregate critical care time was [35 minutes] minutes. This time is in addition to time spent performing reported procedures but includes the following: [x] Data Review and interpretation [x] Patient assessment and monitoring of vital signs [x] Documentation [x] Medication orders and management History Interval history: Patient seen and examined, remains intubated but alert awake and oriented. Anxious a bit Hospitalist Physical - Physical exam Narrative exam: General appearance: Present: well-nourished, other (Intubated) - EENT Eyes: Present: PERRL, EOM intact. Absent: scleral icterus ENT: hearing intact, clear oral mucosa, dentition normal - Neck Neck: Present: supple, normal ROM - Respiratory Respiratory effort: other (Currently intubated) Respiratory: bilateral: wheezing - Cardiovascular Rhythm: regular Heart Sounds: Present: S1 & S2. Absent: gallop, systolic murmur, diastolic murmur, rub, click - Extremities Extremities: no ischemia, pulses intact, pulses symmetrical, No edema, normal temperature, normal color, Full ROM Peripheral Pulses: within normal limits - Abdominal General gastrointestinal: Present: soft, non-tender, non-distended, normal bowel sounds. Absent: mass - Integumentary Integumentary: Present: clear, warm, dry. Absent: rash - Musculoskeletal Musculoskeletal: strength equal bilaterally - Psychiatric Psychiatric: Anxious, intact judgment & insight, memory intact, cooperative - Neurologic Neurologic: CNII-XII intact, no focal deficits, moves all extremities - Constitutional Vitals: Temp Pulse Resp BP Pulse Ox 97.8 F 98 H 22 127/80 98 12/23/20 11:49 12/23/20 13:30 12/23/20 13:30 12/23/20 12:19 12/23/20 12:19 General appearance: Present: other (alert but remains intubated on the vent) HEART Score - HEART Score Troponin: Troponin T < 0.010 ng/mL (0.00-0.029) 12/22/20 18:47 Results - Labs CBC & Chem 7: 12/23/20 04:30 12/23/20 04:30 Labs: Laboratory Last Values WBC 18.6 K/mm3 (4.5-11.0) H 12/23/20 04:30 RBC 4.47 M/mm3 (3.65-5.03) 12/23/20 04:30 Hgb 14.5 gm/dl (11.8-15.2) 12/23/20 04:30 Hct 42.6 % (35.5-45.6) 12/23/20 04:30 MCV 95 fl (84-94) H 12/23/20 04:30 MCH 33 pg (28-32) H 12/23/20 04:30 MCHC 34 % (32-34) 12/23/20 04:30 RDW 13.6 % (13.2-15.2) 12/23/20 04:30 Plt Count 213 K/mm3 (140-440) 12/23/20 04:30 Lymph # (Auto) [employer] 12/22/20 18:47 Add Manual Diff Complete 12/23/20 04:30 Total Counted 100 12/23/20 04:30 Seg Neutrophils % [employer] 12/23/20 04:30 Seg Neuts % (Manual) 94.0 % (40.0-70.0) H 12/23/20 04:30 Lymphocytes % (Manual) 2.0 % (13.4-35.0) L 12/23/20 04:30 Monocytes % (Manual) 3.0 % (0.0-7.3) 12/23/20 04:30 Eosinophils % (Manual) 5.0 % (0.0-4.3) H 12/22/20 18:47 Metamyelocytes % 1.0 % 12/23/20 04:30 Nucleated RBC % Not Reportable 12/23/20 04:30 Seg Neutrophils # Man 17.5 K/mm3 (1.8-7.7) H 12/23/20 04:30 Band Neutrophils # 0.0 K/mm3 12/23/20 04:30 Lymphocytes # (Manual) 0.4 K/mm3 (1.2-5.4) L 12/23/20 04:30 Abs React Lymphs (Man) 0.0 K/mm3 12/23/20 04:30 Monocytes # (Manual) 0.6 K/mm3 (0.0-0.8) 12/23/20 04:30 Eosinophils # (Manual) 0.0 K/mm3 (0.0-0.4) 12/23/20 04:30 Basophils # (Manual) 0.0 K/mm3 (0.0-0.1) 12/23/20 04:30 Metamyelocytes # 0.2 K/mm3 12/23/20 04:30 Myelocytes # 0.0 K/mm3 12/23/20 04:30 Promyelocytes # 0.0 K/mm3 12/23/20 04:30 Blast Cells # 0.0 K/mm3 12/23/20 04:30 WBC Morphology Not Reportable 12/23/20 04:30 Hypersegmented Neuts Not Reportable 12/23/20 04:30 Hyposegmented Neuts Not Reportable 12/23/20 04:30 Hypogranular Neuts Not Reportable 12/23/20 04:30 Smudge Cells Not Reportable 12/23/20 04:30 Toxic Granulation Not Reportable 12/23/20 04:30 Toxic Vacuolation Not Reportable 12/23/20 04:30 Dohle Bodies Not Reportable 12/23/20 04:30 Pelger-Huet Anomaly Not Reportable 12/23/20 04:30 Kasia Rods Not Reportable 12/23/20 04:30 Platelet Estimate Consistent w auto 12/23/20 04:30 Clumped Platelets Not Reportable 12/23/20 04:30 Plt Clumps, EDTA Not Reportable 12/23/20 04:30 Large Platelets Not Reportable 12/23/20 04:30 Giant Platelets Not Reportable 12/23/20 04:30 Platelet Satelliting Not Reportable 12/23/20 04:30 Plt Morphology Comment Not Reportable 12/23/20 04:30 RBC Morphology Normal 12/23/20 04:30 Dimorphic RBCs Not Reportable 12/23/20 04:30 Polychromasia Not Reportable 12/23/20 04:30 Hypochromasia Not Reportable 12/23/20 04:30 Poikilocytosis Not Reportable 12/23/20 04:30 Anisocytosis Not Reportable 12/23/20 04:30 Microcytosis Not Reportable 12/23/20 04:30 Macrocytosis Not Reportable 12/23/20 04:30 Spherocytes Not Reportable 12/23/20 04:30 Pappenheimer Bodies Not Reportable 12/23/20 04:30 Sickle Cells Not Reportable 12/23/20 04:30 Target Cells Not Reportable 12/23/20 04:30 Tear Drop Cells Not Reportable 12/23/20 04:30 Ovalocytes Not Reportable 12/23/20 04:30 Helmet Cells Not Reportable 12/23/20 04:30 Mae-Leitchfield Bodies Not Reportable 12/23/20 04:30 Valatie Rings Not Reportable 12/23/20 04:30 Makayla Cells Not Reportable 12/23/20 04:30 Bite Cells Not Reportable 12/23/20 04:30 Crenated Cell Not Reportable 12/23/20 04:30 Elliptocytes Not Reportable 12/23/20 04:30 Acanthocytes (Spur) Not Reportable 12/23/20 04:30 Rouleaux Not Reportable 12/23/20 04:30 Hemoglobin C Crystals Not Reportable 12/23/20 04:30 Schistocytes Not Reportable 12/23/20 04:30 Malaria parasites Not Reportable 12/23/20 04:30 Dave Bodies Not Reportable 12/23/20 04:30 Hem Pathologist Commnt No 12/23/20 04:30 PT 13.3 Sec. (12.2-14.9) 12/23/20 04:30 INR 1.03 (0.87-1.13) 12/23/20 04:30 APTT 40.8 Sec. (24.2-36.6) H 12/22/20 18:47 D-Dimer 420.88 ng/mlDDU (0-234) H 12/22/20 19:41 ABG pH 7.267 (7.320-7.450) L 12/23/20 14:09 POC ABG pCO2 45.9 mmHg (32.0-48.0) 12/23/20 14:09 POC ABG pO2 165.1 mmHg (83-108) H 12/23/20 14:09 POC ABG HCO3 20.5 12/23/20 14:09 ABG O2 Saturation 99.2 (0-100) 12/23/20 14:09 POC ABG Base Excess -6.5 12/23/20 14:09 ABG Hemoglobin 14.6 (12.0-17.5) 12/23/20 14:09 ABG Oxyhemoglobin 98.6 (94-98) H 12/23/20 14:09 ABG Methemoglobin 0.2 (0.0-1.5) 12/23/20 14:09 ABG Sodium 136.9 mmol/L (136.0-145.0) 12/23/20 14:09 ABG Potassium 5.2 mmol/L (3.40-4.50) H 12/23/20 14:09 ABG Chloride 109.0 mmol/L (98-107) H 12/23/20 14:09 ABG Glucose 141 mg/dL (65-95) H 12/23/20 14:09 Carboxyhemoglobin 0.4 (0.5-1.5) L 12/23/20 14:09 FiO2 % 40.0 12/23/20 14:09 Sodium 140 mmol/L (137-145) 12/23/20 04:30 Potassium 5.5 mmol/L (3.6-5.0) H 12/23/20 04:30 Chloride 102.9 mmol/L (98-107) 12/23/20 04:30 Carbon Dioxide 22 mmol/L (22-30) D 12/23/20 04:30 Anion Gap 21 mmol/L 12/23/20 04:30 BUN 26 mg/dL (9-20) H 12/23/20 04:30 Creatinine 2.3 mg/dL (0.8-1.3) H 12/23/20 04:30 Estimated GFR 41 ml/min 12/23/20 04:30 BUN/Creatinine Ratio 11 % 12/23/20 04:30 Glucose 133 mg/dL (75-100) H 12/23/20 04:30 POC Glucose 119 mg/dL (70-105) H 12/22/20 18:11 Lactic Acid 1.90 mmol/L (0.7-2.0) 12/22/20 22:51 Calcium 7.9 mg/dL (8.4-10.2) L 12/23/20 04:30 Total Bilirubin 1.00 mg/dL (0.1-1.2) 12/22/20 18:47 AST 47 units/L (5-40) H 12/22/20 18:47 ALT 24 units/L (7-56) 12/22/20 18:47 Alkaline Phosphatase 60 units/L (35-129) 12/22/20 18:47 Ammonia 22.0 umol/L (25-60) L 12/22/20 22:51 Total Creatine Kinase 5407 units/L (55-170) H 12/23/20 04:23 Troponin T < 0.010 ng/mL (0.00-0.029) 12/22/20 18:47 Total Protein 5.8 g/dL (6.3-8.2) L 12/22/20 18:47 Albumin 3.7 g/dL (3.9-5) L 12/22/20 18:47 Albumin/Globulin Ratio 1.8 % 12/22/20 18:47 Arterial Blood Glucose 141 mg/dL (65-95) H 12/23/20 14:09 Arterial Blood Ionized Calcium 4.5 mg/dL (4.6-5.3) L 12/23/20 14:09 Urine Color Yellow (Yellow) 12/23/20 13:30 Urine Turbidity Slightly-cloudy (Clear) 12/23/20 13:30 Urine pH 5.0 (5.0-7.0) 12/23/20 13:30 Ur Specific [place] 1.010 (1.003-1.030) 12/23/20 13:30 Urine Protein 100 mg/dl mg/dL (Negative) 12/23/20 13:30 Urine Glucose (UA) Neg mg/dL (Negative) 12/23/20 13:30 Urine Ketones Tr mg/dL (Negative) 12/23/20 13:30 Urine Blood Lg (Negative) 12/23/20 13:30 Urine Nitrite Neg (Negative) 12/23/20 13:30 Urine Bilirubin Neg (Negative) 12/23/20 13:30 Urine Urobilinogen < 2.0 mg/dL (<2.0) 12/23/20 13:30 Ur Leukocyte Esterase Neg (Negative) 12/23/20 13:30 Urine WBC (Auto) 18.0 /HPF (0.0-6.0) H 12/23/20 13:30 Urine RBC (Auto) 120.0 /HPF (0.0-6.0) 12/23/20 13:30 U Epithel Cells (Auto) 1.0 /HPF (0-13.0) 12/23/20 13:30 Urine WBC Clumps 3+ /HPF 12/22/20 Unknown Urine Mucus Few /HPF 12/23/20 13:30 Salicylates < 0.3 mg/dL (2.8-20.0) L 12/22/20 18:47 Urine Opiates Screen Negative 12/22/20 18:05 Urine Methadone Screen Negative 12/22/20 18:05 Acetaminophen 5.0 ug/mL (10.0-30.0) L 12/22/20 18:47 Ur Barbiturates Screen Negative 12/22/20 18:05 Ur Phencyclidine Scrn Negative 12/22/20 18:05 Ur Amphetamines Screen Negative 12/22/20 18:05 U Benzodiazepines Scrn Negative 12/22/20 18:05 Urine Cocaine Screen Negative 12/22/20 18:05 U Marijuana (THC) Screen Positive 12/22/20 18:05 Drugs of Abuse Note Disclamer 12/22/20 18:05 Plasma/Serum Alcohol < 0.01 % (0-0.07) 12/22/20 18:47 Microbiology: Microbiology 12/22/20 18:50 Peripheral/Venous Blood Culture - Preliminary Culture in Progress 12/22/20 18:47 Peripheral/Venous Blood Culture - Preliminary Culture in Progress Meléndez/IV: Voiding Method Indwelling Catheter Active Medications - Current Medications Current Medications: Generic Name Dose Route Start Last Admin Trade Name Freq PRN Reason Stop Dose Admin Albuterol/Ipratropium 1 ampul 12/23/20 20:00 Ipratropium/Albuterol Sulfate 3 Ml Ampul.Neb IH TIDRT VIKKI Arformoterol Tartrate 15 mcg 12/23/20 20:00 Arformoterol 15 Mcg/2 Ml Nebu IH Q12HRT VIKKI Budesonide 0.5 mg 12/23/20 20:00 Budesonide 0.5 Mg/2 Ml Nebu IH Q12HRT VIKKI Famotidine 20 mg 12/23/20 10:00 12/23/20 10:04 Famotidine 20 Mg/2 Ml Inj IV 20 mg DAILY VIKKI Administration Fentanyl 50 mcg 12/22/20 18:21 12/22/20 19:00 Fentanyl 100 Mcg/2 Ml Inj IV 50 mcg Q10MIN PRN Administration ANALGESIA Heparin Sodium (Porcine) 5,000 unit 12/23/20 06:00 12/23/20 13:25 Heparin 5,000 Unit/1 Ml Vial SUB-Q 5,000 unit Q8HR VIKKI Administration Hydrophilic Ointment 1 applic 12/22/20 18:21 Lip Therapy Vaseline TP Q2HR PRN Dry Lips Fentanyl Citrate 2,000 mcg in 100 mls @ 4.083 mls/hr 12/22/20 19:00 12/23/20 11:30 Fentanyl Drip Premix IV 0 mcg/kg/hr TITR VIKKI 0 mls/hr Titration Protocol 1 MCG/KG/HR Ceftriaxone Sodium 1 gm in 50 mls @ 100 mls/hr 12/23/20 10:00 12/23/20 10:04 Rocephin/Ns 1 Gm/50 Ml IV 12/27/20 10:29 100 mls/hr Q24H VIKKI Administration Protocol Lactated Ringer's 1,000 mls @ 150 mls/hr 12/23/20 09:45 12/23/20 10:09 Lactated Ringers IV 12/25/20 16:24 150 mls/hr DIRECT VIKKI Administration Azithromycin 500 mg in 250 mls @ 250 mls/hr 12/23/20 15:00 Zithromax/Ns IV 12/28/20 14:59 Q24H VIKKI Magnesium Hydroxide 30 ml 12/22/20 23:21 Magnesium Hydroxide (Mom) Oral Liqd Udc PO Q4H PRN Constipation Methylprednisolone Sodium Succinate 40 mg 12/23/20 22:00 Methylprednisolone Sod Succinate 40 Mg/1 Ml Inj IV Q12HR VIKKI Morphine Sulfate 2 mg 12/22/20 23:21 Morphine 2 Mg/1 Ml Inj IV Q4H PRN Pain, Moderate (4-6) Multi-Ingred Cream/Lotion/Oil/Oint 1 applic 12/22/20 18:21 Mineral Oil/Petrolatum, White Ophth Oint 3.5 Gm OU Q4HR PRN Dry Eye(s) Ondansetron HCl 4 mg 12/22/20 23:21 Ondansetron 4 Mg/2 Ml Inj IV Q8H PRN Nausea And Vomiting Sodium Chloride 10 ml 12/23/20 10:00 12/23/20 10:05 Sodium Chloride 0.9% 10 Ml Flush Syringe IV 10 ml BID VIKKI Administration Sodium Chloride 10 ml 12/22/20 23:21 Sodium Chloride 0.9% 10 Ml Flush Syringe IV PRN PRN LINE FLUSH Nutrition/Malnutrition Assess - Dietary Evaluation Nutrition/Malnutrition Findings: Nutrition Notes Start: 12/23/20 13:19 Freq: Status: Active Protocol: Document 12/23/20 13:20 AL (Rec: 12/23/20 13:23 AL [id number]) Co-Sign 12/23/20 13:20 LP Nutrition Notes Need for Assessment generated from: MD Order,Education Initial or Follow up Brief Note Current Diagnosis Acute Kidney Injury, Respiratory Failure Other Pertinent Diagnosis Heart Attack, UTI, Lactic Acidosis, Rhabdomyolosis Current Diet NPO Subjective/Other Information MD order for diet education. Pt currently intubed and is NPO. Unable to conduct diet education due to pt being unresponsive. Nutrition Intervention Anticipated Discharge Needs: Unable to determine at the time. Follow-Up By: 12/24/20 Additional Comments F/U for diet education needs, vent status.
[2020-12-23] MEDS ORDERED: AZITHROMYCIN/NS 500 MG/250 ML 500 MG/250 ML BAG IV SCH (15:00)
--- NOTE | 2020-12-23 15:21 | Consultation ---
History of Present Illness Consult date: 12/23/20 Requesting physician: MARK RIVER Reason for consult: other (Drug OD; Acute Hypoxemic Respiratory Failure) History of present illness: PULMONARY/CCM CONSULT NOTE (Full dictation # [id number]) Please see dictated notes for full details Past History Past Medical History: other (Asthma) Past Surgical History: No surgical history Social history: no significant social history Family history: no significant family history Medications and Allergies Allergies Allergy/AdvReac Type Severity Reaction Status Date / Time nut - unspecified Allergy Swelling Verified 12/22/20 21:15 Active Meds: Active Medications Albuterol/Ipratropium (Ipratropium/Albuterol Sulfate 3 Ml Ampul.Neb) 1 ampul IH TIDRT VIKKI Arformoterol Tartrate (Arformoterol 15 Mcg/2 Ml Nebu) 15 mcg IH Q12HRT VIKKI Budesonide (Budesonide 0.5 Mg/2 Ml Nebu) 0.5 mg IH Q12HRT VIKKI Famotidine (Famotidine 20 Mg/2 Ml Inj) 20 mg IV DAILY [facility] Last Admin: 12/23/20 10:04 Dose: 20 mg Documented by: Fentanyl (Fentanyl 100 Mcg/2 Ml Inj) 50 mcg IV Q10MIN PRN PRN Reason: ANALGESIA Last Admin: 12/22/20 19:00 Dose: 50 mcg Documented by: Heparin Sodium (Porcine) (Heparin 5,000 Unit/1 Ml Vial) 5,000 unit SUB-Q Q8HR VIKKI Last Admin: 12/23/20 13:25 Dose: 5,000 unit Documented by: Hydrophilic Ointment (Lip Therapy Vaseline) 1 applic TP Q2HR PRN PRN Reason: Dry Lips Fentanyl Citrate (Fentanyl Drip Premix) 2,000 mcg in 100 mls @ 4.083 mls/hr IV TITR VIKKI; Protocol Last Titration: 12/23/20 11:30 Dose: 0 mcg/kg/hr, 0 mls/hr Documented by: Ceftriaxone Sodium (Rocephin/Ns 1 Gm/50 Ml) 1 gm in 50 mls @ 100 mls/hr IV Q24H VIKKI; Protocol Stop: 12/27/20 10:29 Last Admin: 12/23/20 10:04 Dose: 100 mls/hr Documented by: Lactated Ringer's (Lactated Ringers) 1,000 mls @ 150 mls/hr IV DIRECT [facility] Stop: 12/25/20 16:24 Last Admin: 12/23/20 10:09 Dose: 150 mls/hr Documented by: Azithromycin (Zithromax/Ns) 500 mg in 250 mls @ 250 mls/hr IV Q24H [facility] Stop: 12/28/20 14:59 Last Admin: 12/23/20 15:14 Dose: 250 mls/hr Documented by: Magnesium Hydroxide (Magnesium Hydroxide (Mom) Oral Liqd Udc) 30 ml PO Q4H PRN PRN Reason: Constipation Methylprednisolone Sodium Succinate (Methylprednisolone Sod Succinate 40 Mg/1 Ml Inj) 40 mg IV Q12HR VIKKI Morphine Sulfate (Morphine 2 Mg/1 Ml Inj) 2 mg IV Q4H PRN PRN Reason: Pain, Moderate (4-6) Multi-Ingred Cream/Lotion/Oil/Oint (Mineral Oil/Petrolatum, White Ophth Oint 3.5 Gm) 1 applic OU Q4HR PRN PRN Reason: Dry Eye(s) Ondansetron HCl (Ondansetron 4 Mg/2 Ml Inj) 4 mg IV Q8H PRN PRN Reason: Nausea And Vomiting Sodium Chloride (Sodium Chloride 0.9% 10 Ml Flush Syringe) 10 ml IV BID [facility] Last Admin: 12/23/20 10:05 Dose: 10 ml Documented by: Sodium Chloride (Sodium Chloride 0.9% 10 Ml Flush Syringe) 10 ml IV PRN PRN PRN Reason: LINE FLUSH Physical Examination Vital signs: Vital Signs Pulse Resp BP Pulse Ox 100 H 12 139/73 98 12/22/20 18:05 12/22/20 18:05 12/22/20 18:05 12/22/20 18:05 Results - Laboratory Findings CBC and BMP: 12/23/20 04:30 12/23/20 04:30 ABG ABG pH 7.267 (7.320-7.450) L 12/23/20 14:09 POC ABG pCO2 45.9 mmHg (32.0-48.0) 12/23/20 14:09 POC ABG pO2 165.1 mmHg (83-108) H 12/23/20 14:09 POC ABG HCO3 20.5 12/23/20 14:09 ABG O2 Saturation 99.2 (0-100) 12/23/20 14:09 PT/INR, D-dimer PT 13.3 Sec. (12.2-14.9) 12/23/20 04:30 INR 1.03 (0.87-1.13) 12/23/20 04:30 D-Dimer 420.88 ng/mlDDU (0-234) H 12/22/20 19:41 Abnormal lab findings: Abnormal Labs 12/22/20 12/22/20 12/22/20 18:11 18:47 18:47 WBC 14.0 H MCV 100 H MCH Seg Neuts % (Manual) Lymphocytes % (Manual) 51.0 H Eosinophils % (Manual) 5.0 H Seg Neutrophils # Man Lymphocytes # (Manual) 7.1 H Eosinophils # (Manual) 0.7 H PT 16.0 H INR 1.30 H APTT 40.8 H D-Dimer ABG pH POC ABG pCO2 POC ABG pO2 ABG Oxyhemoglobin ABG Potassium ABG Chloride ABG Glucose Carboxyhemoglobin Potassium Carbon Dioxide BUN Creatinine Glucose POC Glucose 119 H Lactic Acid Calcium AST Ammonia Total Creatine Kinase Total Protein Albumin Arterial Blood Glucose Arterial Blood Ionized Calcium Urine WBC (Auto) Salicylates Acetaminophen 12/22/20 12/22/20 12/22/20 18:47 18:47 18:47 WBC MCV MCH Seg Neuts % (Manual) Lymphocytes % (Manual) Eosinophils % (Manual) Seg Neutrophils # Man Lymphocytes # (Manual) Eosinophils # (Manual) PT INR APTT D-Dimer ABG pH POC ABG pCO2 POC ABG pO2 ABG Oxyhemoglobin ABG Potassium ABG Chloride ABG Glucose Carboxyhemoglobin Potassium 5.1 H Carbon Dioxide 11 L BUN Creatinine 1.9 H Glucose 132 H POC Glucose Lactic Acid 17.30 H* Calcium AST 47 H Ammonia 690.0 H Total Creatine Kinase 830 H Total Protein 5.8 L Albumin 3.7 L Arterial Blood Glucose Arterial Blood Ionized Calcium Urine WBC (Auto) Salicylates Acetaminophen 12/22/20 12/22/20 12/22/20 18:47 18:47 19:41 WBC MCV MCH Seg Neuts % (Manual) Lymphocytes % (Manual) Eosinophils % (Manual) Seg Neutrophils # Man Lymphocytes # (Manual) Eosinophils # (Manual) PT INR APTT D-Dimer 420.88 H ABG pH POC ABG pCO2 POC ABG pO2 ABG Oxyhemoglobin ABG Potassium ABG Chloride ABG Glucose Carboxyhemoglobin Potassium Carbon Dioxide BUN Creatinine Glucose POC Glucose Lactic Acid Calcium AST Ammonia Total Creatine Kinase Total Protein Albumin Arterial Blood Glucose Arterial Blood Ionized Calcium Urine WBC (Auto) Salicylates < 0.3 L Acetaminophen 5.0 L 12/22/20 12/22/20 12/22/20 20:18 22:51 Unknown WBC MCV MCH Seg Neuts % (Manual) Lymphocytes % (Manual) Eosinophils % (Manual) Seg Neutrophils # Man Lymphocytes # (Manual) Eosinophils # (Manual) PT INR APTT D-Dimer ABG pH 7.142 L POC ABG pCO2 60.1 H POC ABG pO2 606.7 H ABG Oxyhemoglobin 99.7 H ABG Potassium ABG Chloride ABG Glucose Carboxyhemoglobin 0 L Potassium Carbon Dioxide BUN Creatinine Glucose POC Glucose Lactic Acid Calcium AST Ammonia 22.0 L Total Creatine Kinase Total Protein Albumin Arterial Blood Glucose Arterial Blood Ionized Calcium Urine WBC (Auto) 50.0 H Salicylates Acetaminophen 12/23/20 12/23/20 12/23/20 03:30 04:23 04:30 WBC 18.6 H MCV 95 H MCH 33 H Seg Neuts % (Manual) 94.0 H Lymphocytes % (Manual) 2.0 L Eosinophils % (Manual) Seg Neutrophils # Man 17.5 H Lymphocytes # (Manual) 0.4 L Eosinophils # (Manual) PT INR APTT D-Dimer ABG pH 7.212 L POC ABG pCO2 50.4 H POC ABG pO2 109.6 H ABG Oxyhemoglobin ABG Potassium 5.1 H ABG Chloride ABG Glucose 144 H Carboxyhemoglobin 0.2 L Potassium Carbon Dioxide BUN Creatinine Glucose POC Glucose Lactic Acid Calcium AST Ammonia Total Creatine Kinase 5407 H Total Protein Albumin Arterial Blood Glucose 144 H Arterial Blood Ionized Calcium 4.5 L Urine WBC (Auto) Salicylates Acetaminophen 12/23/20 12/23/20 12/23/20 04:30 11:16 13:30 WBC MCV MCH Seg Neuts % (Manual) Lymphocytes % (Manual) Eosinophils % (Manual) Seg Neutrophils # Man Lymphocytes # (Manual) Eosinophils # (Manual) PT INR APTT D-Dimer ABG pH 7.303 L POC ABG pCO2 POC ABG pO2 149.2 H ABG Oxyhemoglobin 98.5 H ABG Potassium 5.1 H ABG Chloride 108.0 H ABG Glucose 137 H Carboxyhemoglobin 0.3 L Potassium 5.5 H Carbon Dioxide BUN 26 H Creatinine 2.3 H Glucose 133 H POC Glucose Lactic Acid Calcium 7.9 L AST Ammonia Total Creatine Kinase Total Protein Albumin Arterial Blood Glucose 137 H Arterial Blood Ionized Calcium 4.5 L Urine WBC (Auto) 18.0 H Salicylates Acetaminophen 12/23/20 14:09 WBC MCV MCH Seg Neuts % (Manual) Lymphocytes % (Manual) Eosinophils % (Manual) Seg Neutrophils # Man Lymphocytes # (Manual) Eosinophils # (Manual) PT INR APTT D-Dimer ABG pH 7.267 L POC ABG pCO2 POC ABG pO2 165.1 H ABG Oxyhemoglobin 98.6 H ABG Potassium 5.2 H ABG Chloride 109.0 H ABG Glucose 141 H Carboxyhemoglobin 0.4 L Potassium Carbon Dioxide BUN Creatinine Glucose POC Glucose Lactic Acid Calcium AST Ammonia Total Creatine Kinase Total Protein Albumin Arterial Blood Glucose 141 H Arterial Blood Ionized Calcium 4.5 L Urine WBC (Auto) Salicylates Acetaminophen
--- NOTE | 2020-12-23 16:18 | Consultation ---
History of Present Illness - Reason for Consult Consult date: 12/23/20 acute renal failure - History of Present Illness This is a 25-year-old man with history of asthma who was brought in by EMS for altered mental status and respiratory distress. In the ER he reportedly suffered a cardiac arrest with ROSC. Nephrology was consulted for acute kidney injury. Patient is intubated and somnolent, therefore history has been obtained from chart. Past History Past Medical History: other (Asthma) Past Surgical History: No surgical history Social history: no significant social history Family history: no significant family history Medications and Allergies Allergies Allergy/AdvReac Type Severity Reaction Status Date / Time nut - unspecified Allergy Swelling Verified 12/22/20 21:15 Active Meds: Active Medications Albuterol/Ipratropium (Ipratropium/Albuterol Sulfate 3 Ml Ampul.Neb) 1 ampul IH TIDRT [facility] Arformoterol Tartrate (Arformoterol 15 Mcg/2 Ml Nebu) 15 mcg IH Q12HRT [facility] Budesonide (Budesonide 0.5 Mg/2 Ml Nebu) 0.5 mg IH Q12HRT [facility] Famotidine (Famotidine 20 Mg/2 Ml Inj) 20 mg IV DAILY [facility] Last Admin: 12/23/20 10:04 Dose: 20 mg Documented by: Fentanyl (Fentanyl 100 Mcg/2 Ml Inj) 50 mcg IV Q10MIN PRN PRN Reason: ANALGESIA Last Admin: 12/22/20 19:00 Dose: 50 mcg Documented by: Heparin Sodium (Porcine) (Heparin 5,000 Unit/1 Ml Vial) 5,000 unit SUB-Q Q8HR [facility] Last Admin: 12/23/20 13:25 Dose: 5,000 unit Documented by: Hydrophilic Ointment (Lip Therapy Vaseline) 1 applic TP Q2HR PRN PRN Reason: Dry Lips Fentanyl Citrate (Fentanyl Drip Premix) 2,000 mcg in 100 mls @ 4.083 mls/hr IV TITR [facility]; Protocol Last Titration: 12/23/20 11:30 Dose: 0 mcg/kg/hr, 0 mls/hr Documented by: Ceftriaxone Sodium (Rocephin/Ns 1 Gm/50 Ml) 1 gm in 50 mls @ 100 mls/hr IV Q24H [facility]; Protocol Stop: 12/27/20 10:29 Last Admin: 12/23/20 10:04 Dose: 100 mls/hr Documented by: Lactated Ringer's (Lactated Ringers) 1,000 mls @ 150 mls/hr IV DIRECT [facility] Stop: 12/25/20 16:24 Last Admin: 12/23/20 10:09 Dose: 150 mls/hr Documented by: Azithromycin (Zithromax/Ns) 500 mg in 250 mls @ 250 mls/hr IV Q24H [facility] Stop: 12/28/20 14:59 Last Admin: 12/23/20 15:14 Dose: 250 mls/hr Documented by: Magnesium Hydroxide (Magnesium Hydroxide (Mom) Oral Liqd Udc) 30 ml PO Q4H PRN PRN Reason: Constipation Methylprednisolone Sodium Succinate (Methylprednisolone Sod Succinate 40 Mg/1 Ml Inj) 40 mg IV Q12HR [facility] Morphine Sulfate (Morphine 2 Mg/1 Ml Inj) 2 mg IV Q4H PRN PRN Reason: Pain, Moderate (4-6) Multi-Ingred Cream/Lotion/Oil/Oint (Mineral Oil/Petrolatum, White Ophth Oint 3.5 Gm) 1 applic OU Q4HR PRN PRN Reason: Dry Eye(s) Ondansetron HCl (Ondansetron 4 Mg/2 Ml Inj) 4 mg IV Q8H PRN PRN Reason: Nausea And Vomiting Sodium Chloride (Sodium Chloride 0.9% 10 Ml Flush Syringe) 10 ml IV BID [facility] Last Admin: 12/23/20 10:05 Dose: 10 ml Documented by: Sodium Chloride (Sodium Chloride 0.9% 10 Ml Flush Syringe) 10 ml IV PRN PRN PRN Reason: LINE FLUSH Review of Systems ROS unobtainable: due to endotracheal tube Exam - Vital Signs Vital signs: Vital Signs Pulse Resp BP Pulse Ox 100 H 12 139/73 98 12/22/20 18:05 12/22/20 18:05 12/22/20 18:05 12/22/20 18:05 - Physical Exam Narrative exam: General appearance: NAD. Intubated EENT: Anicteric sclera, hearing intact Neck: Supple Respiratory: Intubated. Mechanical breath sounds Cardiovascular: RRR, no rub Extremities: No edema Abdominal: Soft, nontender, nondistended Integumentary: Dry, intact Musculoskeletal: No joint swelling or erythema Psychiatric: Unable to assess Neurologic: Somnolent but easily awakened Results - Lab Results 12/23/20 04:30 12/23/20 04:30 Most recent lab results ABG pH 7.267 (7.320-7.450) L 12/23/20 14:09 ABG O2 Saturation 99.2 (0-100) 12/23/20 14:09 Calcium 7.9 mg/dL (8.4-10.2) L 12/23/20 04:30 Assessment and Plan Assessment Acute kidney injury Rhabdomyolysis Hyperkalemia Pyuria Cardiac arrest Acute respiratory failure Leukocytosis Recommendations Ordered LR - continue at increased rate Kayexalate PO x 1 Check urine culture Check renal ultrasound Renally dose medications Avoid nephrotoxins Renal diet Reviewed consult notes
[2020-12-23] MEDS: ARFORMOTEROL 15 MCG/2 ML NEBU IH SCH (21:19)
[2020-12-23] MEDS: BUDESONIDE 0.5 MG/2 ML NEBU IH SCH (21:19)
--- NOTE | 2020-12-23 23:29 | Ultrasound Report ---
ULTRASOUND RENAL INDICATION: ITZEL. COMPARISON: No relevant prior imaging study available. FINDINGS: RIGHT KIDNEY: Size: 10.6 cm. Echogenicity: Diffusely increased.. Cortical thickness: 0.8. Hydronephrosis: None. Cyst or mass: None. Stones: None. LEFT KIDNEY: Size: 10.2 cm. Echogenicity: Diffusely increased. Cortical thickness: 0.9. Hydronephrosis: None. Cyst or mass: None. Stones: None. Urinary Bladder: Meléndez catheter.. Free Fluid: None. Additional Findings: None. IMPRESSION: Chronic medical renal disease. No obstruction. Signer Name: Howard Rosario MD Signed: 12/23/2020 11:24 PM Workstation Name: [id number]
[2020-12-24] MEDS: LACTATED RINGERS 1,000 ML IV SCH (01:19)
--- NOTE | 2020-12-24 03:18 | Consultation ---
DATE OF CONSULTATION: 12/23/2020 PULMONARY CRITICAL CARE CONSULTATION CONSULTING PHYSICIAN: Dr. Sharan Cortes, emergency room doctor. REASON FOR CONSULTATION: Acute hypoxemic respiratory failure, on mechanical ventilatory support, status post drug overdose. CHIEF COMPLAINT AND HISTORY OF PRESENT ILLNESS: As follows. The patient is a 25-year-old male with past medical history significant for a diagnosis of asthma, who was brought into the emergency room on the day of intubation with respiratory distress. Apparently, he had been having shortness of breath and wheezing in the preceding couple of days, had been using his inhalers without significant improvement. EMS was called. The patient was found to be in respiratory distress and then became unresponsive. He received bag mask valve ventilation, was given steroids, epinephrine, magnesium, brought into the emergency room. The patient suffered a cardiac arrest upon arrival in the emergency room and was intubated. According to his mother, the patient was said to be picking berries and may have been exposed to nuts, which is one of his allergies. They also mentioned that the patient had been taking some Xanax and something called bishop. Workup in the emergency room also revealed elevated lactic acid levels, I believe as high as 17 and he was transferred ultimately to the intensive care unit for further management. We are asked to assist with management. When I stopped by to see him, he was resting in bed. He remained on mechanical ventilator, but was now more appropriate. He was following commands. He did acknowledge that he needed to use this event as a movement of reflexion with regards to his life. He denied any chest pain or palpitations at that time. This really is as much of the history of presentation as I have. PAST MEDICAL HISTORY: Asthma. PAST SURGICAL HISTORY: Unknown. MEDICATIONS: He was on at the time I stopped by to see him, according to the medication administration record included the following: DuoNeb nebulizer treatments nebulized 3 times daily. Famotidine 20 mg IV daily. He had been receiving fentanyl, but he had been on a fentanyl drip earlier. Heparin 5000 units subQ q. 8. Rocephin 1 gram IV daily, magnesium oxide 30 mL p.o. q. 4 hours p.r.n. constipation, Solu-Medrol 40 mg IV q. 8 hours, morphine sulfate 2 mg IV q. 4 hours p.r.n. moderate pain, Zofran 4 mg IV q. 8 hours p.r.n. nausea and vomiting. ALLERGIES: NUTS, UNSPECIFIED TYPE OF BERRIES that he is allergic too. DIET: Well-built gentleman. Family denied acute weight loss or gain in the preceding few weeks to months. FAMILY AND SOCIAL HISTORY: Apparently lives in the community. He had denied alcohol, tobacco or illicit drug use or abuse; however, he did have a positive drug screen. FAMILY HISTORY: Otherwise, noncontributory. REVIEW OF SYSTEMS: Difficult to obtain secondary to the patient's medical and mental condition. Since he has been here, no gross hematochezia or melena, no gross hematuria. He denies dysuria. No hematemesis, no hemoptysis, no bloody tracheal secretions, no witnessed seizures. Review of systems otherwise unobtainable or as in the body of the history above. PHYSICAL EXAMINATION: At presentation in the emergency room. VITAL SIGNS: He was afebrile, first temperature was 97.1 degrees Fahrenheit, pulse at presentation was 100, respiratory rate of 12, blood pressure 139/73, O2 sats were 98%, inspired oxygen concentration at that time was not recorded. When I stopped by to see him, his O2 sats were 98% that was on pressure support mode of ventilation. Pressure support of 10, PEEP of 6 and 40% FiO2. GENERAL: He is a young, well-built male. Normocephalic, atraumatic. Responding appropriately on the mechanical ventilator without significantly increased respiratory work of breathing. HEAD, EYES, EARS, NOSE AND THROAT: Anicteric. No conjunctival erythema. Oropharynx was moist. NECK: No gross jugular venous distention, no thyromegaly. Endotracheal tube was taped at the lips around 24 cm. Grossly, there were no palpable lymph nodes in the supraclavicular or submandibular lymph node chains. LUNGS: Auscultation of both lung chand revealed clear bilateral breath sounds, no wheezing. HEART: Sounds 1 and 2 are heard. There were regular rate and rhythm at the time of my evaluation without overt rubs or murmurs. ABDOMEN: Soft, flat, bowel sounds are positive, nontender, no palpable hepatosplenomegaly. EXTREMITIES: Without overt digital clubbing, no cyanosis, no pedal edema. Pedal pulses are 2+ bilaterally. NEUROLOGIC: Pupils are equal, round, about 4 mm, reactive to light. Extraocular muscle movements are intact. He moves all 4 extremities spontaneously. SKIN: Normal turgor without overt cellulitis or rash in the areas examined. Please see the wound care nurses' notes for full description of his skin. Mood was normal. Affect was a little bit anxious. He did have intact judgment and insight. LABORATORY DATA: From my review are as follows: Admission white cell count 14,000, hemoglobin 13.3, hematocrit 40.9, platelet count 228. No band forms on the manual differential. INR 1.3. D-dimer was slightly elevated at 421. Venous blood gas at presentation showed a pH of 7.14, pCO2 of 60, pO2 of 607 on 100% FiO2. Serum sodium was 144, potassium 5.1, chloride 102, bicarbonate 11, BUN 11, creatinine 1.9, glucose was 119. Lactic acid level was 17.3 at presentation. Liver function tests essentially within normal limits. His ammonia level was 22, total creatinine kinase 830. Troponin within normal limits. Urinalysis was negative for nitrites and leukocyte esterase. He did have 50 white cells per high power field. Urine drug screen was positive for tetrahydrocannabinol. Coronavirus PCR has come back negative. Most recent lab test; white count is 18,600. Arterial blood gas on pressure support showed a pH of 7.27, pCO2 of 46 and a pO2 of 165 that was on 40%. Two sets of blood cultures are no growth to date. A chest x-ray was reviewed. Essentially, it shows clear bilateral lung chand with ET tube in good position. ASSESSMENT: 1. Acute hypoxemic respiratory failure, on mechanical ventilatory support. 2. Cardiac arrest with return of spontaneous circulation. 3. Acute kidney injury at presentation. 4. Possible drug overdose. 5. Lactic acidosis. 6. Possible urinary tract infection. 7. Rhabdomyolysis. 8. Oropharyngeal dysphagia. PLAN: His lactic acid level is now within normal levels. Clinically, he looks very comfortable on the mechanical ventilator and even though his pH of not within normal limits. I do feel that he will do well if he is given a trial of extubation. He is very cooperative at this time. I have discussed with his diet and the hope is that he continues to remain cooperative. Bilevel positive airway pressure ventilation therapy will be ordered. Post-extubation if necessary full ventilatory support or increased work of breathing. I noted the hyperkalemia that will be addressed. I note the acute kidney injury. Nephrology consultation has been placed. I will defer to the nephrology team for management of that. Hopefully, he responds quickly form that he is making urine. GI prophylaxis has been ordered. I will start long-acting bronchodilators with Brovana as well as inhaled corticosteroids and then the plan will be to reduce the frequency of his DuoNeb treatments. I will add azithromycin and treat him empirically for community-acquired pneumonia in light of the leukocytosis and the history of respiratory symptoms prior to admission. Flu and pneumonia vaccination will be addressed per protocol. Thank you very much for the consult. We will follow along and make further recommendations as picture progresses/becomes clearer. He is critically ill on life-sustaining interventions including mechanical ventilatory support at high risk of from cardiopulmonary system decompensation. I have counseled him strongly with regards to the drug abstinence. At this time, I spent about 35-40 minutes of critical care time without overlap and excluding any procedural time that may be necessary. TID: [id number] RECEIPT: [id number] CAROL/ORALIA VERDUZCO
[2020-12-24] MEDS: HEPARIN 5,000 UNIT/1 ML VIAL SUB-Q SCH ×3 (05:01→21:26)
[2020-12-24 05:19] LABS: Hematocrit 37.1 % (35.5-45.6); Hemoglobin 12.5 gm/dl (11.8-15.2); Mean Corpuscular HGB Conc 34 % (32-34); Mean Corpuscular Volume 94 fl (84-94); Platelet Count 163 K/mm3 (140-440); Red Blood Count 3.94 M/mm3 (3.65-5.03); Red Cell Distribution Width 13.5 % (13.2-15.2)
[2020-12-24 05:37] LABS: Calcium 8.5 mg/dL (8.4-10.2)
--- NOTE | 2020-12-24 05:55 | XRay Report ---
CHEST 1 VIEW 12/24/2020 4:47 AM INDICATION / CLINICAL INFORMATION: follow up respiratory failure. COMPARISON: Previous day. FINDINGS: SUPPORT DEVICES: Removal of NG tube and endotracheal tube. HEART / MEDIASTINUM: No significant abnormality. LUNGS / PLEURA: No significant pulmonary or pleural abnormality. No pneumothorax. ADDITIONAL FINDINGS: No significant additional findings. IMPRESSION: No acute abnormality. Signer Name: Howard Rosario MD Signed: 12/24/2020 5:50 AM Workstation Name: [id number]
[2020-12-24] MEDS: IPRATROPIUM/ALBUTEROL SULFATE 3 ML AMPUL.NEB IH SCH ×3 (09:15→20:53)
[2020-12-24] MEDS: ARFORMOTEROL 15 MCG/2 ML NEBU IH SCH ×2 (09:15→20:53)
[2020-12-24] MEDS: BUDESONIDE 0.5 MG/2 ML NEBU IH SCH ×2 (09:16→20:53)
[2020-12-24] MEDS: FAMOTIDINE 20 MG/2 ML INJ IV SCH (09:21)
[2020-12-24] MEDS: methylPREDNISolone Sod Succinate 40 MG/1 ML INJ IV SCH ×2 (09:21→21:26)
[2020-12-24] MEDS: cefTRIAXone/NS 1 GM/50 ML 1 GM/50 ML BAG IV SCH (09:22)
--- NOTE | 2020-12-24 11:01 | Progress Note ---
Assessment and Plan Assessment and plan: 25-year-old -[place] male with known history of asthma presents to the emergency room today with respiratory distress. He has been having shortness of breath and wheezing over the past 1 to 2 days. Was also said to have been using his inhaler without any significant improvement. EMS was called and patient was found to be in respiratory distress and became unresponsive. He received bag valve ventilation. Was said to have received steroids, epinephrine and magnesium sulfate prior to my evaluation. Patient was said to have coded upon arrival in the emergency room and was subsequently intubated. Further information gathered from the ER staff indicates that patient may have taking some Xanax and something called 'bishop'. 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 Work-up in the emergency room today reveals elevated lactic acid level, elevated creatinine of 1.9, total creatinine kinase of 830, and urinalysis revealing UTI. Chest x-ray and CT scan of the head were unremarkable. UDS was positive for marijuana. Patient is being admitted for anaphylactic reaction, asthma exacerbation and UTI. 12/23/20: Cardiology input noted, no acute cardiac issues, counselling provided on TSH use. Continue gentle hydration and monitor, Worsening WBC likely from steroids. Renal faliure noted, will monitor in the setting of rhabdomyolysis Discussed with father outside the room. Anticipate the patient will be extubated today. 12/24: No sepsis (1) Acute respiratory failure Current Visit: Yes Status: Acute Qualifiers: Respiratory failure complication: hypercapnia Qualified Code(s): J96.02 - Acute respiratory failure with hypercapnia Plan to address problem: Possibly secondary to asthma exacerbation versus anaphylactic reaction Patient currently intubated and sedated We will place consult to service team leader for further evaluation and recommendation. (2) Cardiac arrest Current Visit: Yes Status: Acute Plan to address problem: Patient successfully resuscitated in the emergency room. He is currently intubated. We will consult cardiology for evaluation. (3) ITZEL (acute kidney injury) secondary to ATN as a complication from rhabdomyolysis Current Visit: Yes Status: Acute Plan to address problem: Patient placed on IV fluid normal saline. We will monitor BUN and creatinine. Consult placed to nephrology for evaluation. (4) Lactic acidosis Current Visit: Yes Status: Acute Plan to address problem: We will continue patient on IV fluid and monitor lactic acid level. (5) UTI (urinary tract infection) Current Visit: Yes Status: Acute Qualifiers: Urinary tract infection type: acute cystitis Hematuria presence: without hematuria Qualified Code(s): N30.00 - Acute cystitis without hematuria Plan to address problem: Patient placed on empiric IV antibiotics. Will await urine culture result. (6) Rhabdomyolysis Current Visit: Yes Status: Acute Plan to address problem: We will monitor for creatinine kinase level and continue on IV fluid. (7) THC use abuse extensive counseling provided to the patient verbalized understanding 50 minutes counseling done (8) DVT prophylaxis Current Visit: Yes Status: Acute Plan to address problem: Patient placed on subcutaneous heparin. (9) Full code status Current Visit: Yes Status: Acute Plan to address problem: Patient is a full code. The high probability of a clinically significant, sudden or life threatening deterioration of the [pulmonary, renal] system(s) required my full and direct attention, intervention and personal management. The aggregate critical care time was [35 minutes] minutes. This time is in addition to time spent performing reported procedures but includes the following: [x] Data Review and interpretation [x] Patient assessment and monitoring of vital signs [x] Documentation [x] Medication orders and management Hospitalist Physical - Constitutional Vitals: Temp Pulse Resp BP Pulse Ox 98.5 F 61 15 117/73 100 12/24/20 07:35 12/24/20 09:00 12/24/20 09:00 12/24/20 09:00 12/24/20 09:16 General appearance: Present: other (alert but remains intubated on the vent) HEART Score - HEART Score Troponin: Troponin T < 0.010 ng/mL (0.00-0.029) 12/22/20 18:47 Results - Labs CBC & Chem 7: 12/24/20 04:34 12/24/20 04:34 Labs: Laboratory Last Values WBC 17.5 K/mm3 (4.5-11.0) H 12/24/20 04:34 RBC 3.94 M/mm3 (3.65-5.03) 12/24/20 04:34 Hgb 12.5 gm/dl (11.8-15.2) 12/24/20 04:34 Hct 37.1 % (35.5-45.6) 12/24/20 04:34 MCV 94 fl (84-94) 12/24/20 04:34 MCH 32 pg (28-32) 12/24/20 04:34 MCHC 34 % (32-34) 12/24/20 04:34 RDW 13.5 % (13.2-15.2) 12/24/20 04:34 Plt Count 163 K/mm3 (140-440) 12/24/20 04:34 Lymph # (Auto) Information Resources Director 12/22/20 18:47 Add Manual Diff Complete 12/23/20 04:30 Total Counted 100 12/23/20 04:30 Seg Neutrophils % Information Resources Director 12/23/20 04:30 Seg Neuts % (Manual) 94.0 % (40.0-70.0) H 12/23/20 04:30 Lymphocytes % (Manual) 2.0 % (13.4-35.0) L 12/23/20 04:30 Monocytes % (Manual) 3.0 % (0.0-7.3) 12/23/20 04:30 Eosinophils % (Manual) 5.0 % (0.0-4.3) H 12/22/20 18:47 Metamyelocytes % 1.0 % 12/23/20 04:30 Nucleated RBC % Not Reportable 12/23/20 04:30 Seg Neutrophils # Man 17.5 K/mm3 (1.8-7.7) H 12/23/20 04:30 Band Neutrophils # 0.0 K/mm3 12/23/20 04:30 Lymphocytes # (Manual) 0.4 K/mm3 (1.2-5.4) L 12/23/20 04:30 Abs React Lymphs (Man) 0.0 K/mm3 12/23/20 04:30 Monocytes # (Manual) 0.6 K/mm3 (0.0-0.8) 12/23/20 04:30 Eosinophils # (Manual) 0.0 K/mm3 (0.0-0.4) 12/23/20 04:30 Basophils # (Manual) 0.0 K/mm3 (0.0-0.1) 12/23/20 04:30 Metamyelocytes # 0.2 K/mm3 12/23/20 04:30 Myelocytes # 0.0 K/mm3 12/23/20 04:30 Promyelocytes # 0.0 K/mm3 12/23/20 04:30 Blast Cells # 0.0 K/mm3 12/23/20 04:30 WBC Morphology Not Reportable 12/23/20 04:30 Hypersegmented Neuts Not Reportable 12/23/20 04:30 Hyposegmented Neuts Not Reportable 12/23/20 04:30 Hypogranular Neuts Not Reportable 12/23/20 04:30 Smudge Cells Not Reportable 12/23/20 04:30 Toxic Granulation Not Reportable 12/23/20 04:30 Toxic Vacuolation Not Reportable 12/23/20 04:30 Dohle Bodies Not Reportable 12/23/20 04:30 Pelger-Huet Anomaly Not Reportable 12/23/20 04:30 Kasia Rods Not Reportable 12/23/20 04:30 Platelet Estimate Consistent w auto 12/23/20 04:30 Clumped Platelets Not Reportable 12/23/20 04:30 Plt Clumps, EDTA Not Reportable 12/23/20 04:30 Large Platelets Not Reportable 12/23/20 04:30 Giant Platelets Not Reportable 12/23/20 04:30 Platelet Satelliting Not Reportable 12/23/20 04:30 Plt Morphology Comment Not Reportable 12/23/20 04:30 RBC Morphology Normal 12/23/20 04:30 Dimorphic RBCs Not Reportable 12/23/20 04:30 Polychromasia Not Reportable 12/23/20 04:30 Hypochromasia Not Reportable 12/23/20 04:30 Poikilocytosis Not Reportable 12/23/20 04:30 Anisocytosis Not Reportable 12/23/20 04:30 Microcytosis Not Reportable 12/23/20 04:30 Macrocytosis Not Reportable 12/23/20 04:30 Spherocytes Not Reportable 12/23/20 04:30 Pappenheimer Bodies Not Reportable 12/23/20 04:30 Sickle Cells Not Reportable 12/23/20 04:30 Target Cells Not Reportable 12/23/20 04:30 Tear Drop Cells Not Reportable 12/23/20 04:30 Ovalocytes Not Reportable 12/23/20 04:30 Helmet Cells Not Reportable 12/23/20 04:30 Mae-[place] Bodies Not Reportable 12/23/20 04:30 [place] Rings Not Reportable 12/23/20 04:30 Makayla Cells Not Reportable 12/23/20 04:30 Bite Cells Not Reportable 12/23/20 04:30 Crenated Cell Not Reportable 12/23/20 04:30 Elliptocytes Not Reportable 12/23/20 04:30 Acanthocytes (Spur) Not Reportable 12/23/20 04:30 Rouleaux Not Reportable 12/23/20 04:30 Hemoglobin C Crystals Not Reportable 12/23/20 04:30 Schistocytes Not Reportable 12/23/20 04:30 Malaria parasites Not Reportable 12/23/20 04:30 Dave Bodies Not Reportable 12/23/20 04:30 Hem Pathologist Commnt No 12/23/20 04:30 PT 13.3 Sec. (12.2-14.9) 12/23/20 04:30 INR 1.03 (0.87-1.13) 12/23/20 04:30 APTT 40.8 Sec. (24.2-36.6) H 12/22/20 18:47 D-Dimer 420.88 ng/mlDDU (0-234) H 12/22/20 19:41 ABG pH 7.267 (7.320-7.450) L 12/23/20 14:09 POC ABG pCO2 45.9 mmHg (32.0-48.0) 12/23/20 14:09 POC ABG pO2 165.1 mmHg (83-108) H 12/23/20 14:09 POC ABG HCO3 20.5 12/23/20 14:09 ABG O2 Saturation 99.2 (0-100) 12/23/20 14:09 POC ABG Base Excess -6.5 12/23/20 14:09 ABG Hemoglobin 14.6 (12.0-17.5) 12/23/20 14:09 ABG Oxyhemoglobin 98.6 (94-98) H 12/23/20 14:09 ABG Methemoglobin 0.2 (0.0-1.5) 12/23/20 14:09 ABG Sodium 136.9 mmol/L (136.0-145.0) 12/23/20 14:09 ABG Potassium 5.2 mmol/L (3.40-4.50) H 12/23/20 14:09 ABG Chloride 109.0 mmol/L (98-107) H 12/23/20 14:09 ABG Glucose 141 mg/dL (65-95) H 12/23/20 14:09 Carboxyhemoglobin 0.4 (0.5-1.5) L 12/23/20 14:09 FiO2 % 40.0 12/23/20 14:09 Sodium 138 mmol/L (137-145) 12/24/20 04:34 Potassium 4.7 mmol/L (3.6-5.0) 12/24/20 04:34 Chloride 105.8 mmol/L (98-107) 12/24/20 04:34 Carbon Dioxide 25 mmol/L (22-30) 12/24/20 04:34 Anion Gap 12 mmol/L 12/24/20 04:34 BUN 21 mg/dL (9-20) H 12/24/20 04:34 Creatinine 2.0 mg/dL (0.8-1.3) H 12/24/20 04:34 Estimated GFR 49 ml/min 12/24/20 04:34 BUN/Creatinine Ratio 11 % 12/24/20 04:34 Glucose 134 mg/dL (75-100) H 12/24/20 04:34 POC Glucose 140 mg/dL (70-105) H 12/24/20 04:59 Lactic Acid 1.90 mmol/L (0.7-2.0) 12/22/20 22:51 Calcium 8.5 mg/dL (8.4-10.2) 12/24/20 04:34 Total Bilirubin 1.00 mg/dL (0.1-1.2) 12/22/20 18:47 AST 47 units/L (5-40) H 12/22/20 18:47 ALT 24 units/L (7-56) 12/22/20 18:47 Alkaline Phosphatase 60 units/L (35-129) 12/22/20 18:47 Ammonia 22.0 umol/L (25-60) L 12/22/20 22:51 Total Creatine Kinase 9040 units/L (55-170) H 12/24/20 04:34 Troponin T < 0.010 ng/mL (0.00-0.029) 12/22/20 18:47 Total Protein 5.8 g/dL (6.3-8.2) L 12/22/20 18:47 Albumin 3.7 g/dL (3.9-5) L 12/22/20 18:47 Albumin/Globulin Ratio 1.8 % 12/22/20 18:47 Arterial Blood Glucose 141 mg/dL (65-95) H 12/23/20 14:09 Arterial Blood Ionized Calcium 4.5 mg/dL (4.6-5.3) L 12/23/20 14:09 Urine Color Yellow (Yellow) 12/23/20 13:30 Urine Turbidity Slightly-cloudy (Clear) 12/23/20 13:30 Urine pH 5.0 (5.0-7.0) 12/23/20 13:30 Ur Specific [place] 1.010 (1.003-1.030) 12/23/20 13:30 Urine Protein 100 mg/dl mg/dL (Negative) 12/23/20 13:30 Urine Glucose (UA) Neg mg/dL (Negative) 12/23/20 13:30 Urine Ketones Tr mg/dL (Negative) 12/23/20 13:30 Urine Blood Lg (Negative) 12/23/20 13:30 Urine Nitrite Neg (Negative) 12/23/20 13:30 Urine Bilirubin Neg (Negative) 12/23/20 13:30 Urine Urobilinogen < 2.0 mg/dL (<2.0) 12/23/20 13:30 Ur Leukocyte Esterase Neg (Negative) 12/23/20 13:30 Urine WBC (Auto) 18.0 /HPF (0.0-6.0) H 12/23/20 13:30 Urine RBC (Auto) 120.0 /HPF (0.0-6.0) 12/23/20 13:30 U Epithel Cells (Auto) 1.0 /HPF (0-13.0) 12/23/20 13:30 Urine WBC Clumps 3+ /HPF 12/22/20 Unknown Urine Mucus Few /HPF 12/23/20 13:30 Salicylates < 0.3 mg/dL (2.8-20.0) L 12/22/20 18:47 Urine Opiates Screen Negative 12/22/20 18:05 Urine Methadone Screen Negative 12/22/20 18:05 Acetaminophen 5.0 ug/mL (10.0-30.0) L 12/22/20 18:47 Ur Barbiturates Screen Negative 12/22/20 18:05 Ur Phencyclidine Scrn Negative 12/22/20 18:05 Ur Amphetamines Screen Negative 12/22/20 18:05 U Benzodiazepines Scrn Negative 12/22/20 18:05 Urine Cocaine Screen Negative 12/22/20 18:05 U Marijuana (THC) Screen Positive 12/22/20 18:05 Drugs of Abuse Note Disclamer 12/22/20 18:05 Plasma/Serum Alcohol < 0.01 % (0-0.07) 12/22/20 18:47 Coronavirus (PCR) Negative (Negative) 12/23/20 09:35 Microbiology: Microbiology 12/22/20 18:50 Peripheral/Venous Blood Culture - Preliminary NO GROWTH AFTER 24 HOURS 12/22/20 18:47 Peripheral/Venous Blood Culture - Preliminary NO GROWTH AFTER 24 HOURS Meléndez/IV: Voiding Method Indwelling Catheter Active Medications - Current Medications Current Medications: Generic Name Dose Route Start Last Admin Trade Name Freq PRN Reason Stop Dose Admin Albuterol/Ipratropium 1 ampul 12/23/20 20:00 12/24/20 09:15 Ipratropium/Albuterol Sulfate 3 Ml Ampul.Neb IH Not Given TIDRT VIKKI Arformoterol Tartrate 15 mcg 12/23/20 20:00 12/24/20 09:15 Arformoterol 15 Mcg/2 Ml Nebu IH Not Given Q12HRT VIKKI Budesonide 0.5 mg 12/23/20 20:00 12/24/20 09:16 Budesonide 0.5 Mg/2 Ml Nebu IH Not Given Q12HRT VIKKI Famotidine 20 mg 12/23/20 10:00 12/24/20 09:21 Famotidine 20 Mg/2 Ml Inj IV 20 mg DAILY VIKKI Administration Heparin Sodium (Porcine) 5,000 unit 12/23/20 06:00 12/24/20 05:01 Heparin 5,000 Unit/1 Ml Vial SUB-Q 5,000 unit Q8HR VIKKI Administration Hydrophilic Ointment 1 applic 12/22/20 18:21 Lip Therapy Vaseline TP Q2HR PRN Dry Lips Ceftriaxone Sodium 1 gm in 50 mls @ 100 mls/hr 12/23/20 10:00 12/24/20 09:22 Rocephin/Ns 1 Gm/50 Ml IV 12/27/20 10:29 100 mls/hr Q24H VIKKI Administration Protocol Lactated Ringer's 1,000 mls @ 150 mls/hr 12/23/20 09:45 12/24/20 01:19 Lactated Ringers IV 12/25/20 16:24 150 mls/hr DIRECT VIKKI Administration Azithromycin 500 mg in 250 mls @ 250 mls/hr 12/23/20 15:00 12/23/20 15:14 Zithromax/Ns IV 12/28/20 14:59 250 mls/hr Q24H VIKKI Administration Magnesium Hydroxide 30 ml 12/22/20 23:21 Magnesium Hydroxide (Mom) Oral Liqd Udc PO Q4H PRN Constipation Methylprednisolone Sodium Succinate 40 mg 12/23/20 22:00 12/24/20 09:21 Methylprednisolone Sod Succinate 40 Mg/1 Ml Inj IV 40 mg Q12HR VIKKI Administration Morphine Sulfate 2 mg 12/22/20 23:21 Morphine 2 Mg/1 Ml Inj IV Q4H PRN Pain, Moderate (4-6) Multi-Ingred Cream/Lotion/Oil/Oint 1 applic 12/22/20 18:21 Mineral Oil/Petrolatum, White Ophth Oint 3.5 Gm OU Q4HR PRN Dry Eye(s) Ondansetron HCl 4 mg 12/22/20 23:21 Ondansetron 4 Mg/2 Ml Inj IV Q8H PRN Nausea And Vomiting Sodium Chloride 10 ml 12/23/20 10:00 12/24/20 09:21 Sodium Chloride 0.9% 10 Ml Flush Syringe IV 10 ml BID VIKKI Administration Sodium Chloride 10 ml 12/22/20 23:21 Sodium Chloride 0.9% 10 Ml Flush Syringe IV PRN PRN LINE FLUSH Nutrition/Malnutrition Assess - Dietary Evaluation Nutrition/Malnutrition Findings: Nutrition Notes Start: 12/23/20 13:19 Freq: Status: Active Protocol: Document 12/23/20 13:20 AL (Rec: 12/23/20 13:23 AL [id number]) Co-Sign 12/23/20 13:20 LP Nutrition Notes Need for Assessment generated from: MD Order,Education Initial or Follow up Assessment Current Diagnosis Acute Kidney Injury, Respiratory Failure Other Pertinent Diagnosis Heart Attack, UTI, Lactic Acidosis, Rhabdomyolosis Current Diet NPO Height 6 ft Weight 81.65 kg [place] Body Weight (kg) 80.90 BMI 24.4 Weight Status Appropriate Subjective/Other Information MD order for diet education. Pt currently intubed and is NPO. Unable to conduct diet education due to pt being unresponsive. Burn Absent Trauma Absent Current % PO Negligible Minimum of two criteria No physical signs of malnutrition #1 Nutrition Diagnosis Inadequate oral intake Comments: Protein Etiology Respiratory Failure As Evidenced by Signs and Symptoms Pt on vent and unable to consume PO Is patient on ventilator? Yes Is Patient Ambulatory and/or Out of Bed No REE-([place]-confined to bed) 2197.008 Calculation Used for Recommendations [facility] Additional Notes Protein: 98-163 g (1.2-2.0 g/ kg ABW) Fluid: 1 ml/kcal Nutrition Intervention Change Diet Order: TF when medically feasible Nutrition Support: Vital 1.2 at 75 ml/hr Flush 125 ml q4h Kcal 2,160 Protein (gm) 135 Fluid (mL) 1,460 Anticipated Discharge Needs: Unable to determine at the time. Follow-Up By: 12/24/20 Additional Comments F/U for diet education needs, vent status, TF consult
--- NOTE | 2020-12-24 11:47 | Progress Note ---
Assessment and Plan Respiratory failure s/p extubation negative for COVID-19 infection History of asthma Rhabdomyolysis -trending downwards Leukocytosis Renal failure with a creatinine of 2.3 Elevated ammonia levels -resolved An echocardiogram shows normal left ventricular function, ejection fraction 50- 55%. Recommend: Conservative cardiac management. Subjective Date of service: 12/24/20 Interval history: Patient was extubated on yesterday. Currently, he is resting in bed. No distress noted. Objective Vital Signs Temp Pulse Pulse Pulse Resp Resp BP 12/24/20 11:00 110 H 17 131/85 12/24/20 10:00 71 18 131/85 12/24/20 09:16 12/24/20 09:00 61 15 117/73 12/24/20 08:08 66 66 18 12/24/20 08:00 98.5 F 71 17 116/73 12/24/20 07:35 98.5 F 12/24/20 07:00 68 33 H 112/65 12/24/20 06:00 67 23 120/65 12/24/20 05:00 72 16 118/63 12/24/20 04:00 98.1 F 73 17 119/59 12/24/20 03:01 72 12/24/20 03:00 79 18 118/71 12/24/20 02:00 73 16 120/70 12/24/20 01:00 76 15 125/61 12/24/20 00:06 81 18 132/61 12/24/20 00:00 98.3 F 88 18 132/61 12/23/20 23:00 71 16 131/71 12/23/20 22:00 78 12 116/74 12/23/20 21:23 82 20 12/23/20 21:00 109/61 12/23/20 20:00 98.6 F 73 14 120/71 12/23/20 19:00 75 15 127/71 12/23/20 18:30 70 20 150/96 12/23/20 18:00 66 21 150/96 12/23/20 17:30 68 12 147/99 12/23/20 17:00 68 21 147/99 12/23/20 16:30 87 24 135/91 12/23/20 16:00 98.3 F 87 25 H 135/91 12/23/20 15:30 70 14 136/86 12/23/20 15:00 66 10 L 137/91 12/23/20 14:54 12/23/20 14:30 64 7 L 128/89 12/23/20 14:00 77 24 127/103 12/23/20 13:30 68 98 H 13 22 131/84 12/23/20 13:00 85 9 L 141/79 12/23/20 12:30 128/81 12/23/20 12:19 95 H 16 127/80 12/23/20 12:00 97.8 F 12 135/83 12/23/20 11:49 97.8 F Pulse Ox 12/24/20 11:00 98 12/24/20 10:00 95 12/24/20 09:16 100 12/24/20 09:00 100 12/24/20 08:08 99 12/24/20 08:00 100 12/24/20 07:35 12/24/20 07:00 98 12/24/20 06:00 98 12/24/20 05:00 99 12/24/20 04:00 97 12/24/20 03:01 12/24/20 03:00 98 12/24/20 02:00 98 12/24/20 01:00 99 12/24/20 00:06 99 12/24/20 00:00 99 12/23/20 23:00 99 12/23/20 22:00 100 12/23/20 21:23 99 12/23/20 21:00 100 12/23/20 20:00 98 12/23/20 19:00 100 12/23/20 18:30 99 12/23/20 18:00 99 12/23/20 17:30 99 12/23/20 17:00 98 12/23/20 16:30 98 12/23/20 16:00 95 12/23/20 15:30 97 12/23/20 15:00 93 12/23/20 14:54 98 12/23/20 14:30 99 12/23/20 14:00 99 12/23/20 13:30 98 12/23/20 13:00 87 12/23/20 12:30 94 12/23/20 12:19 98 12/23/20 12:00 100 12/23/20 11:49 - Physical Examination General: No Apparent Distress HEENT: Positive: PERRL Neck: Positive: trachea midline Cardiac: Positive: Reg Rate and Rhythm Lungs: Positive: Decreased Breath Sounds Neuro: Positive: Grossly Intact Extremities: Absent: edema - Labs and Meds CBC 12/24/20 Range/Units 04:34 WBC 17.5 H (4.5-11.0) K/mm3 RBC 3.94 (3.65-5.03) M/mm3 Hgb 12.5 (11.8-15.2) gm/dl Hct 37.1 (35.5-45.6) % Plt Count 163 (140-440) K/mm3 Comprehensive Metabolic Panel 12/24/20 Range/Units 04:34 Sodium 138 (137-145) mmol/L Potassium 4.7 (3.6-5.0) mmol/L Chloride 105.8 (98-107) mmol/L Carbon Dioxide 25 (22-30) mmol/L BUN 21 H (9-20) mg/dL Creatinine 2.0 H (0.8-1.3) mg/dL Glucose 134 H (75-100) mg/dL Calcium 8.5 (8.4-10.2) mg/dL
--- NOTE | 2020-12-24 11:55 | Electrocardiograph Report ---
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
[2020-12-24] MEDS: SODIUM CHLORIDE 0.9% 1000 ML 1,000 ML IV SCH ×2 (12:33→12:39)
--- NOTE | 2020-12-24 13:08 | Progress Note ---
Assessment and Plan Acute hypoxemic respiratory failure on MVS Cardiac arrest with ROSC ITZEL Possible drug overdose Lactic acidosis Possible UTI Rhabdomyolysis Oropharyngeal dysphagia - ID consulted for bacteremia (? contaminant) - get lactate and procalcitonin to aid clinical decision making - prn supplemental oxygen to keep O2 sats > 90% - prn Bronchodilators (QUAN) with pulm hygiene per RT - avoid nephrotoxins, renally dose all medications - mobility protocols to prevent pressure ulcers - PT/OT as tolerated - prn analgesia per pain score - Wound care per RN/WCT - accuchecks with glycemic control per SSI for target blood glucose < 180 mg/dL - tobacco abstinence strongly counseled at the bedside - home oxygen evaluation at discharge - GI & VTE prophylaxis - Flu & pneumovax per protocol - Pulmonary out patient follow up for PFTs and optimization of respiratory status - continue other care per attending / other consultants ... re-evaluate in am & prn Subjective Date of service: 12/24/20 Principal diagnosis: Ac hypoxemic resp failure; S/P Cardiac arrest; ITZEL; Bacteremia; Rhabdomyoly Interval history: Patient is seen today for: Acute hypoxemic respiratory failure; Cardiac arrest with ROSC; ITZEL; Bacteremia; Possible UTI; Rhabdomyolysis; Oropharyngeal dysphagia Seen and examined at bedside; 24hour events reviewed; nursing and respiratory care staff consulted; no adverse overnight events reported to me; resting peacefully in bed; looks and feels better; denies N/V/F/C Objective Vital Signs - 12hr 12/24/20 12/24/20 12/24/20 02:00 03:00 03:01 Temperature Pulse Rate 73 79 72 Pulse Rate [ From Monitor] Respiratory 16 18 Rate Blood Pressure 120/70 118/71 O2 Sat by Pulse 98 98 Oximetry 12/24/20 12/24/20 12/24/20 04:00 05:00 06:00 Temperature 98.1 F Pulse Rate 73 72 67 Pulse Rate [ From Monitor] Respiratory 17 16 23 Rate Blood Pressure 119/59 118/63 120/65 O2 Sat by Pulse 97 99 98 Oximetry 12/24/20 12/24/20 12/24/20 07:00 07:35 08:00 Temperature 98.5 F 98.5 F Pulse Rate 68 71 Pulse Rate [ From Monitor] Respiratory 33 H 17 Rate Blood Pressure 112/65 116/73 O2 Sat by Pulse 98 100 Oximetry 05/12/24/20 12/24/20 08:08 09:00 09:16 Temperature Pulse Rate 66 61 Pulse Rate [ 66 From Monitor] Respiratory 18 15 Rate Blood Pressure 117/73 O2 Sat by Pulse 99 100 100 Oximetry 12/24/20 12/24/20 12/24/20 10:00 11:00 12:00 Temperature Pulse Rate 71 110 H 74 Pulse Rate [ From Monitor] Respiratory 18 17 18 Rate Blood Pressure 131/85 131/85 127/75 O2 Sat by Pulse 95 98 98 Oximetry 12/24/20 12:25 Temperature 97.9 F Pulse Rate Pulse Rate [ From Monitor] Respiratory Rate Blood Pressure O2 Sat by Pulse Oximetry Constitutional: no acute distress Eyes: non-icteric ENT: oropharynx moist Neck: supple, no lymphadenopathy, no JVD Effort: normal Ascultation: Bilateral: clear Percussion: Bilateral: not dull Cardiovascular: regular rate and rhythm Gastrointestinal: normoactive bowel sounds, soft, non-tender, non-distended Integumentary: normal Extremities: no cyanosis, no edema, pulses normal, no ischemia or petechiae Neurologic: non-focal exam, pupils equal and round, CN II-XII normal, motor strength normal and Psychiatric: mood appropriate, affect normal CBC and BMP: 12/24/20 04:34 12/25/20 08:54 ABG, PT/INR, D-dimer: ABG ABG pH 7.267 (7.320-7.450) L 12/23/20 14:09 POC ABG pCO2 45.9 mmHg (32.0-48.0) 12/23/20 14:09 POC ABG pO2 165.1 mmHg (83-108) H 12/23/20 14:09 POC ABG HCO3 20.5 12/23/20 14:09 ABG O2 Saturation 99.2 (0-100) 12/23/20 14:09 PT/INR, D-dimer PT 13.3 Sec. (12.2-14.9) 12/23/20 04:30 INR 1.03 (0.87-1.13) 12/23/20 04:30 D-Dimer 420.88 ng/mlDDU (0-234) H 12/22/20 19:41 Abnormal lab findings: Abnormal Labs 12/22/20 12/22/20 12/22/20 18:11 18:47 18:47 WBC 14.0 H MCV 100 H MCH Seg Neuts % (Manual) Lymphocytes % (Manual) 51.0 H Eosinophils % (Manual) 5.0 H Seg Neutrophils # Man Lymphocytes # (Manual) 7.1 H Eosinophils # (Manual) 0.7 H PT 16.0 H INR 1.30 H APTT 40.8 H D-Dimer ABG pH POC ABG pCO2 POC ABG pO2 ABG Oxyhemoglobin ABG Potassium ABG Chloride ABG Glucose Carboxyhemoglobin Potassium Carbon Dioxide BUN Creatinine Glucose POC Glucose 119 H Lactic Acid Calcium AST Ammonia Total Creatine Kinase Total Protein Albumin Arterial Blood Glucose Arterial Blood Ionized Calcium Urine WBC (Auto) Salicylates Acetaminophen 12/22/20 12/22/20 12/22/20 18:47 18:47 18:47 WBC MCV MCH Seg Neuts % (Manual) Lymphocytes % (Manual) Eosinophils % (Manual) Seg Neutrophils # Man Lymphocytes # (Manual) Eosinophils # (Manual) PT INR APTT D-Dimer ABG pH POC ABG pCO2 POC ABG pO2 ABG Oxyhemoglobin ABG Potassium ABG Chloride ABG Glucose Carboxyhemoglobin Potassium 5.1 H Carbon Dioxide 11 L BUN Creatinine 1.9 H Glucose 132 H POC Glucose Lactic Acid 17.30 H* Calcium AST 47 H Ammonia 690.0 H Total Creatine Kinase 830 H Total Protein 5.8 L Albumin 3.7 L Arterial Blood Glucose Arterial Blood Ionized Calcium Urine WBC (Auto) Salicylates Acetaminophen 12/22/20 12/22/20 12/22/20 18:47 18:47 19:41 WBC MCV MCH Seg Neuts % (Manual) Lymphocytes % (Manual) Eosinophils % (Manual) Seg Neutrophils # Man Lymphocytes # (Manual) Eosinophils # (Manual) PT INR APTT D-Dimer 420.88 H ABG pH POC ABG pCO2 POC ABG pO2 ABG Oxyhemoglobin ABG Potassium ABG Chloride ABG Glucose Carboxyhemoglobin Potassium Carbon Dioxide BUN Creatinine Glucose POC Glucose Lactic Acid Calcium AST Ammonia Total Creatine Kinase Total Protein Albumin Arterial Blood Glucose Arterial Blood Ionized Calcium Urine WBC (Auto) Salicylates < 0.3 L Acetaminophen 5.0 L 12/22/20 12/22/20 12/22/20 20:18 22:51 Unknown WBC MCV MCH Seg Neuts % (Manual) Lymphocytes % (Manual) Eosinophils % (Manual) Seg Neutrophils # Man Lymphocytes # (Manual) Eosinophils # (Manual) PT INR APTT D-Dimer ABG pH 7.142 L POC ABG pCO2 60.1 H POC ABG pO2 606.7 H ABG Oxyhemoglobin 99.7 H ABG Potassium ABG Chloride ABG Glucose Carboxyhemoglobin 0 L Potassium Carbon Dioxide BUN Creatinine Glucose POC Glucose Lactic Acid Calcium AST Ammonia 22.0 L Total Creatine Kinase Total Protein Albumin Arterial Blood Glucose Arterial Blood Ionized Calcium Urine WBC (Auto) 50.0 H Salicylates Acetaminophen 12/23/20 12/23/20 12/23/20 03:30 04:23 04:30 WBC 18.6 H MCV 95 H MCH 33 H Seg Neuts % (Manual) 94.0 H Lymphocytes % (Manual) 2.0 L Eosinophils % (Manual) Seg Neutrophils # Man 17.5 H Lymphocytes # (Manual) 0.4 L Eosinophils # (Manual) PT INR APTT D-Dimer ABG pH 7.212 L POC ABG pCO2 50.4 H POC ABG pO2 109.6 H ABG Oxyhemoglobin ABG Potassium 5.1 H ABG Chloride ABG Glucose 144 H Carboxyhemoglobin 0.2 L Potassium Carbon Dioxide BUN Creatinine Glucose POC Glucose Lactic Acid Calcium AST Ammonia Total Creatine Kinase 5407 H Total Protein Albumin Arterial Blood Glucose 144 H Arterial Blood Ionized Calcium 4.5 L Urine WBC (Auto) Salicylates Acetaminophen 12/23/20 12/23/20 12/23/20 04:30 11:16 11:30 WBC MCV MCH Seg Neuts % (Manual) Lymphocytes % (Manual) Eosinophils % (Manual) Seg Neutrophils # Man Lymphocytes # (Manual) Eosinophils # (Manual) PT INR APTT D-Dimer ABG pH 7.303 L POC ABG pCO2 POC ABG pO2 149.2 H ABG Oxyhemoglobin 98.5 H ABG Potassium 5.1 H ABG Chloride 108.0 H ABG Glucose 137 H Carboxyhemoglobin 0.3 L Potassium 5.5 H Carbon Dioxide BUN 26 H Creatinine 2.3 H Glucose 133 H POC Glucose 126 H Lactic Acid Calcium 7.9 L AST Ammonia Total Creatine Kinase Total Protein Albumin Arterial Blood Glucose 137 H Arterial Blood Ionized Calcium 4.5 L Urine WBC (Auto) Salicylates Acetaminophen 12/23/20 12/23/20 12/23/20 13:30 14:09 22:54 WBC MCV MCH Seg Neuts % (Manual) Lymphocytes % (Manual) Eosinophils % (Manual) Seg Neutrophils # Man Lymphocytes # (Manual) Eosinophils # (Manual) PT INR APTT D-Dimer ABG pH 7.267 L POC ABG pCO2 POC ABG pO2 165.1 H ABG Oxyhemoglobin 98.6 H ABG Potassium 5.2 H ABG Chloride 109.0 H ABG Glucose 141 H Carboxyhemoglobin 0.4 L Potassium Carbon Dioxide BUN Creatinine Glucose POC Glucose Lactic Acid Calcium AST Ammonia Total Creatine Kinase 78480 H Total Protein Albumin Arterial Blood Glucose 141 H Arterial Blood Ionized Calcium 4.5 L Urine WBC (Auto) 18.0 H Salicylates Acetaminophen 12/23/20 12/24/20 12/24/20 23:30 04:34 04:34 WBC 17.5 H MCV MCH Seg Neuts % (Manual) Lymphocytes % (Manual) Eosinophils % (Manual) Seg Neutrophils # Man Lymphocytes # (Manual) Eosinophils # (Manual) PT INR APTT D-Dimer ABG pH POC ABG pCO2 POC ABG pO2 ABG Oxyhemoglobin ABG Potassium ABG Chloride ABG Glucose Carboxyhemoglobin Potassium Carbon Dioxide BUN 21 H Creatinine 2.0 H Glucose 134 H POC Glucose 148 H Lactic Acid Calcium AST Ammonia Total Creatine Kinase 9040 H Total Protein Albumin Arterial Blood Glucose Arterial Blood Ionized Calcium Urine WBC (Auto) Salicylates Acetaminophen 12/24/20 04:59 WBC MCV MCH Seg Neuts % (Manual) Lymphocytes % (Manual) Eosinophils % (Manual) Seg Neutrophils # Man Lymphocytes # (Manual) Eosinophils # (Manual) PT INR APTT D-Dimer ABG pH POC ABG pCO2 POC ABG pO2 ABG Oxyhemoglobin ABG Potassium ABG Chloride ABG Glucose Carboxyhemoglobin Potassium Carbon Dioxide BUN Creatinine Glucose POC Glucose 140 H Lactic Acid Calcium AST Ammonia Total Creatine Kinase Total Protein Albumin Arterial Blood Glucose Arterial Blood Ionized Calcium Urine WBC (Auto) Salicylates Acetaminophen Allied health notes reviewed: nursing
[2020-12-24] MEDS: AZITHROMYCIN 250 MG TAB PO SCH (13:14)
--- NOTE | 2020-12-24 14:24 | Progress Note ---
Assessment and Plan Assessment and plan: 25-year-old -[place] male with known history of asthma presents to the emergency room today with respiratory distress. He has been having shortness of breath and wheezing over the past 1 to 2 days. Was also said to have been using his inhaler without any significant improvement. EMS was called and patient was found to be in respiratory distress and became unresponsive. He received bag valve ventilation. Was said to have received steroids, epinephrine and magnesium sulfate prior to my evaluation. Patient was said to have coded upon arrival in the emergency room and was subsequently intubated. Further information gathered from the ER staff indicates that patient may have taking some Xanax and something called 'bishop'. 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 Work-up in the emergency room today reveals elevated lactic acid level, elevated creatinine of 1.9, total creatinine kinase of 830, and urinalysis revealing UTI. Chest x-ray and CT scan of the head were unremarkable. UDS was positive for marijuana. Patient is being admitted for anaphylactic reaction, asthma exacerbation and UTI. 12/23/20: Cardiology input noted, no acute cardiac issues, counselling provided on TSH use. Continue gentle hydration and monitor, Worsening WBC likely from steroids. Renal faliure noted, will monitor in the setting of rhabdomyolysis Discussed with father outside the room. Anticipate the patient will be extubated today. 12/24: No sepsis, Patient extubated, blood cultures growing GNR 1/2, Counselling provided on tobacco cessation, 15 mins, patients verbalized understanding, plans discussed with patient and consultants. Anticipate discharge tomorrow. (1) Acute respiratory failure- Now extubated Current Visit: Yes Status: Acute Qualifiers: Respiratory failure complication: hypercapnia Qualified Code(s): J96.02 - Acute respiratory failure with hypercapnia Plan to address problem: Possibly secondary to asthma exacerbation versus anaphylactic reaction We will place consult to tracer clerk for further evaluation and recommendation. (2) Cardiac arrest Current Visit: Yes Status: Acute Plan to address problem: Patient successfully resuscitated in the emergency room. He is currently intubated. We will consult cardiology for evaluation. (3) ITZEL (acute kidney injury) secondary to ATN as a complication from rhabdomyolysis Current Visit: Yes Status: Acute Plan to address problem: Patient placed on IV fluid normal saline. We will monitor BUN and creatinine. Consult placed to nephrology for evaluation. (4) Lactic acidosis Current Visit: Yes Status: Acute Plan to address problem: We will continue patient on IV fluid and monitor lactic acid level. (5) UTI (urinary tract infection) Current Visit: Yes Status: Acute Qualifiers: Urinary tract infection type: acute cystitis Hematuria presence: without hematuria Qualified Code(s): N30.00 - Acute cystitis without hematuria Plan to address problem: Patient placed on empiric IV antibiotics. Will await urine culture result. (6) Rhabdomyolysis Current Visit: Yes Status: Acute Plan to address problem: We will monitor for creatinine kinase level and continue on IV fluid. (7) THC use abuse extensive counseling provided to the patient verbalized understanding 50 minutes counseling done (8) DVT prophylaxis Current Visit: Yes Status: Acute Plan to address problem: Patient placed on subcutaneous heparin. (9) Full code status Current Visit: Yes Status: Acute Plan to address problem: Patient is a full code. The high probability of a clinically significant, sudden or life threatening deterioration of the [pulmonary, renal] system(s) required my full and direct attention, intervention and personal management. The aggregate critical care time was [35 minutes] minutes. This time is in addition to time spent performing reported procedures but includes the following: [x] Data Review and interpretation [x] Patient assessment and monitoring of vital signs [x] Documentation [x] Medication orders and management History Interval history: Patient seen and examined, Now extubated, resting comfortable Hospitalist Physical - Physical exam Narrative exam: General appearance: Present: well-nourished - EENT Eyes: Present: PERRL, EOM intact. Absent: scleral icterus ENT: hearing intact, clear oral mucosa, dentition normal - Neck Neck: Present: supple, normal ROM - Respiratory Respiratory effort: improved breathing Respiratory: bilateral: wheezing just at bases - Cardiovascular Rhythm: regular Heart Sounds: Present: S1 & S2. Absent: gallop, systolic murmur, diastolic murmur, rub, click - Extremities Extremities: no ischemia, pulses intact, pulses symmetrical, No edema, normal temperature, normal color, Full ROM Peripheral Pulses: within normal limits - Abdominal General gastrointestinal: Present: soft, non-tender, non-distended, normal bowel sounds. Absent: mass - Integumentary Integumentary: Present: clear, warm, dry. Absent: rash - Musculoskeletal Musculoskeletal: strength equal bilaterally - Psychiatric Psychiatric: Anxious, intact judgment & insight, memory intact, cooperative - Neurologic Neurologic: CNII-XII intact, no focal deficits, moves all extremities - Constitutional Vitals: Temp Pulse Resp BP Pulse Ox 97.9 F 69 16 127/75 99 12/24/20 12:25 12/24/20 13:00 12/24/20 12:04 12/24/20 13:00 12/24/20 13:00 General appearance: Present: other (alert but remains intubated on the vent) HEART Score - HEART Score Troponin: Troponin T < 0.010 ng/mL (0.00-0.029) 12/22/20 18:47 Results - Labs CBC & Chem 7: 12/24/20 04:34 12/24/20 04:34 Labs: Laboratory Last Values WBC 17.5 K/mm3 (4.5-11.0) H 12/24/20 04:34 RBC 3.94 M/mm3 (3.65-5.03) 12/24/20 04:34 Hgb 12.5 gm/dl (11.8-15.2) 12/24/20 04:34 Hct 37.1 % (35.5-45.6) 12/24/20 04:34 MCV 94 fl (84-94) 12/24/20 04:34 MCH 32 pg (28-32) 12/24/20 04:34 MCHC 34 % (32-34) 12/24/20 04:34 RDW 13.5 % (13.2-15.2) 12/24/20 04:34 Plt Count 163 K/mm3 (140-440) 12/24/20 04:34 Lymph # (Auto) [employer] 12/22/20 18:47 Add Manual Diff Complete 12/23/20 04:30 Total Counted 100 12/23/20 04:30 Seg Neutrophils % [employer] 12/23/20 04:30 Seg Neuts % (Manual) 94.0 % (40.0-70.0) H 12/23/20 04:30 Lymphocytes % (Manual) 2.0 % (13.4-35.0) L 12/23/20 04:30 Monocytes % (Manual) 3.0 % (0.0-7.3) 12/23/20 04:30 Eosinophils % (Manual) 5.0 % (0.0-4.3) H 12/22/20 18:47 Metamyelocytes % 1.0 % 12/23/20 04:30 Nucleated RBC % Not Reportable 12/23/20 04:30 Seg Neutrophils # Man 17.5 K/mm3 (1.8-7.7) H 12/23/20 04:30 Band Neutrophils # 0.0 K/mm3 12/23/20 04:30 Lymphocytes # (Manual) 0.4 K/mm3 (1.2-5.4) L 12/23/20 04:30 Abs React Lymphs (Man) 0.0 K/mm3 12/23/20 04:30 Monocytes # (Manual) 0.6 K/mm3 (0.0-0.8) 12/23/20 04:30 Eosinophils # (Manual) 0.0 K/mm3 (0.0-0.4) 12/23/20 04:30 Basophils # (Manual) 0.0 K/mm3 (0.0-0.1) 12/23/20 04:30 Metamyelocytes # 0.2 K/mm3 12/23/20 04:30 Myelocytes # 0.0 K/mm3 12/23/20 04:30 Promyelocytes # 0.0 K/mm3 12/23/20 04:30 Blast Cells # 0.0 K/mm3 12/23/20 04:30 WBC Morphology Not Reportable 12/23/20 04:30 Hypersegmented Neuts Not Reportable 12/23/20 04:30 Hyposegmented Neuts Not Reportable 12/23/20 04:30 Hypogranular Neuts Not Reportable 12/23/20 04:30 Smudge Cells Not Reportable 12/23/20 04:30 Toxic Granulation Not Reportable 12/23/20 04:30 Toxic Vacuolation Not Reportable 12/23/20 04:30 Dohle Bodies Not Reportable 12/23/20 04:30 Pelger-Huet Anomaly Not Reportable 12/23/20 04:30 Kasia Rods Not Reportable 12/23/20 04:30 Platelet Estimate Consistent w auto 12/23/20 04:30 Clumped Platelets Not Reportable 12/23/20 04:30 Plt Clumps, EDTA Not Reportable 12/23/20 04:30 Large Platelets Not Reportable 12/23/20 04:30 Giant Platelets Not Reportable 12/23/20 04:30 Platelet Satelliting Not Reportable 12/23/20 04:30 Plt Morphology Comment Not Reportable 12/23/20 04:30 RBC Morphology Normal 12/23/20 04:30 Dimorphic RBCs Not Reportable 12/23/20 04:30 Polychromasia Not Reportable 12/23/20 04:30 Hypochromasia Not Reportable 12/23/20 04:30 Poikilocytosis Not Reportable 12/23/20 04:30 Anisocytosis Not Reportable 12/23/20 04:30 Microcytosis Not Reportable 12/23/20 04:30 Macrocytosis Not Reportable 12/23/20 04:30 Spherocytes Not Reportable 12/23/20 04:30 Pappenheimer Bodies Not Reportable 12/23/20 04:30 Sickle Cells Not Reportable 12/23/20 04:30 Target Cells Not Reportable 12/23/20 04:30 Tear Drop Cells Not Reportable 12/23/20 04:30 Ovalocytes Not Reportable 12/23/20 04:30 Helmet Cells Not Reportable 12/23/20 04:30 [place] Bodies Not Reportable 12/23/20 04:30 [place] Rings Not Reportable 12/23/20 04:30 Makayla Cells Not Reportable 12/23/20 04:30 Bite Cells Not Reportable 12/23/20 04:30 Crenated Cell Not Reportable 12/23/20 04:30 Elliptocytes Not Reportable 12/23/20 04:30 Acanthocytes (Spur) Not Reportable 12/23/20 04:30 Rouleaux Not Reportable 12/23/20 04:30 Hemoglobin C Crystals Not Reportable 12/23/20 04:30 Schistocytes Not Reportable 12/23/20 04:30 Malaria parasites Not Reportable 12/23/20 04:30 Dave Bodies Not Reportable 12/23/20 04:30 Hem Pathologist Commnt No 12/23/20 04:30 PT 13.3 Sec. (12.2-14.9) 12/23/20 04:30 INR 1.03 (0.87-1.13) 12/23/20 04:30 APTT 40.8 Sec. (24.2-36.6) H 12/22/20 18:47 D-Dimer 420.88 ng/mlDDU (0-234) H 12/22/20 19:41 ABG pH 7.267 (7.320-7.450) L 12/23/20 14:09 POC ABG pCO2 45.9 mmHg (32.0-48.0) 12/23/20 14:09 POC ABG pO2 165.1 mmHg (83-108) H 12/23/20 14:09 POC ABG HCO3 20.5 12/23/20 14:09 ABG O2 Saturation 99.2 (0-100) 12/23/20 14:09 POC ABG Base Excess -6.5 12/23/20 14:09 ABG Hemoglobin 14.6 (12.0-17.5) 12/23/20 14:09 ABG Oxyhemoglobin 98.6 (94-98) H 12/23/20 14:09 ABG Methemoglobin 0.2 (0.0-1.5) 12/23/20 14:09 ABG Sodium 136.9 mmol/L (136.0-145.0) 12/23/20 14:09 ABG Potassium 5.2 mmol/L (3.40-4.50) H 12/23/20 14:09 ABG Chloride 109.0 mmol/L (98-107) H 12/23/20 14:09 ABG Glucose 141 mg/dL (65-95) H 12/23/20 14:09 Carboxyhemoglobin 0.4 (0.5-1.5) L 12/23/20 14:09 FiO2 % 40.0 12/23/20 14:09 Sodium 138 mmol/L (137-145) 12/24/20 04:34 Potassium 4.7 mmol/L (3.6-5.0) 12/24/20 04:34 Chloride 105.8 mmol/L (98-107) 12/24/20 04:34 Carbon Dioxide 25 mmol/L (22-30) 12/24/20 04:34 Anion Gap 12 mmol/L 12/24/20 04:34 BUN 21 mg/dL (9-20) H 12/24/20 04:34 Creatinine 2.0 mg/dL (0.8-1.3) H 12/24/20 04:34 Estimated GFR 49 ml/min 12/24/20 04:34 BUN/Creatinine Ratio 11 % 12/24/20 04:34 Glucose 134 mg/dL (75-100) H 12/24/20 04:34 POC Glucose 140 mg/dL (70-105) H 12/24/20 04:59 Lactic Acid 1.90 mmol/L (0.7-2.0) 12/22/20 22:51 Calcium 8.5 mg/dL (8.4-10.2) 12/24/20 04:34 Total Bilirubin 1.00 mg/dL (0.1-1.2) 12/22/20 18:47 AST 47 units/L (5-40) H 12/22/20 18:47 ALT 24 units/L (7-56) 12/22/20 18:47 Alkaline Phosphatase 60 units/L (35-129) 12/22/20 18:47 Ammonia 22.0 umol/L (25-60) L 12/22/20 22:51 Total Creatine Kinase 7261 units/L (55-170) H 12/24/20 12:48 Troponin T < 0.010 ng/mL (0.00-0.029) 12/22/20 18:47 Total Protein 5.8 g/dL (6.3-8.2) L 12/22/20 18:47 Albumin 3.7 g/dL (3.9-5) L 12/22/20 18:47 Albumin/Globulin Ratio 1.8 % 12/22/20 18:47 Arterial Blood Glucose 141 mg/dL (65-95) H 12/23/20 14:09 Arterial Blood Ionized Calcium 4.5 mg/dL (4.6-5.3) L 12/23/20 14:09 Urine Color Yellow (Yellow) 12/23/20 13:30 Urine Turbidity Slightly-cloudy (Clear) 12/23/20 13:30 Urine pH 5.0 (5.0-7.0) 12/23/20 13:[address] 1.010 (1.003-1.030) 12/23/20 13:30 Urine Protein 100 mg/dl mg/dL (Negative) 12/23/20 13:30 Urine Glucose (UA) Neg mg/dL (Negative) 12/23/20 13:30 Urine Ketones Tr mg/dL (Negative) 12/23/20 13:30 Urine Blood Lg (Negative) 12/23/20 13:30 Urine Nitrite Neg (Negative) 12/23/20 13:30 Urine Bilirubin Neg (Negative) 12/23/20 13:30 Urine Urobilinogen < 2.0 mg/dL (<2.0) 12/23/20 13:30 Ur Leukocyte Esterase Neg (Negative) 12/23/20 13:30 Urine WBC (Auto) 18.0 /HPF (0.0-6.0) H 12/23/20 13:30 Urine RBC (Auto) 120.0 /HPF (0.0-6.0) 12/23/20 13:30 U Epithel Cells (Auto) 1.0 /HPF (0-13.0) 12/23/20 13:30 Urine WBC Clumps 3+ /HPF 12/22/20 Unknown Urine Mucus Few /HPF 12/23/20 13:30 Salicylates < 0.3 mg/dL (2.8-20.0) L 12/22/20 18:47 Urine Opiates Screen Negative 12/22/20 18:05 Urine Methadone Screen Negative 12/22/20 18:05 Acetaminophen 5.0 ug/mL (10.0-30.0) L 12/22/20 18:47 Ur Barbiturates Screen Negative 12/22/20 18:05 Ur Phencyclidine Scrn Negative 12/22/20 18:05 Ur Amphetamines Screen Negative 12/22/20 18:05 U Benzodiazepines Scrn Negative 12/22/20 18:05 Urine Cocaine Screen Negative 12/22/20 18:05 U Marijuana (THC) Screen Positive 12/22/20 18:05 Drugs of Abuse Note Disclamer 12/22/20 18:05 Plasma/Serum Alcohol < 0.01 % (0-0.07) 12/22/20 18:47 Coronavirus (PCR) Negative (Negative) 12/23/20 09:35 Microbiology: Microbiology 12/22/20 18:50 Peripheral/Venous Blood Culture - Preliminary 12/22/20 20:45 Tracheal Aspirate Sputum Culture - Final 12/22/20 18:47 Peripheral/Venous Blood Culture - Preliminary NO GROWTH AFTER 24 HOURS Meléndez/IV: Voiding Method Indwelling Catheter Active Medications - Current Medications Current Medications: Generic Name Dose Route Start Last Admin Trade Name Freq PRN Reason Stop Dose Admin Albuterol/Ipratropium 1 ampul 12/23/20 20:00 12/24/20 09:15 Ipratropium/Albuterol Sulfate 3 Ml Ampul.Neb IH Not Given TIDRT VIKKI Arformoterol Tartrate 15 mcg 12/23/20 20:00 12/24/20 09:15 Arformoterol 15 Mcg/2 Ml Nebu IH Not Given Q12HRT VIKKI Azithromycin 500 mg 12/24/20 14:00 12/24/20 13:14 Azithromycin 250 Mg Tab PO 12/27/20 10:01 500 mg QDAY VIKKI Administration Protocol Budesonide 0.5 mg 12/23/20 20:00 12/24/20 09:16 Budesonide 0.5 Mg/2 Ml Nebu IH Not Given Q12HRT VIKKI Famotidine 20 mg 12/25/20 10:00 Famotidine 20 Mg Tab PO DAILY VIKKI Heparin Sodium (Porcine) 5,000 unit 12/23/20 06:00 12/24/20 13:15 Heparin 5,000 Unit/1 Ml Vial SUB-Q 5,000 unit Q8HR VIKKI Administration Hydrophilic Ointment 1 applic 12/22/20 18:21 Lip Therapy Vaseline TP Q2HR PRN Dry Lips Ceftriaxone Sodium 1 gm in 50 mls @ 100 mls/hr 12/23/20 10:00 12/24/20 09:22 Rocephin/Ns 1 Gm/50 Ml IV 12/27/20 10:29 100 mls/hr Q24H VIKKI Administration Protocol Lactated Ringer's 1,000 mls @ 150 mls/hr 12/23/20 09:45 12/24/20 01:19 Lactated Ringers IV 12/25/20 16:24 150 mls/hr DIRECT VIKKI Administration Sodium Chloride 1,000 mls @ 100 mls/hr 12/24/20 12:30 12/24/20 12:39 Nacl 0.9% 1000 Ml IV 100 mls/hr DIRECT VIKKI Administration Magnesium Hydroxide 30 ml 12/22/20 23:21 Magnesium Hydroxide (Mom) Oral Liqd Udc PO Q4H PRN Constipation Methylprednisolone Sodium Succinate 40 mg 12/23/20 22:00 12/24/20 09:21 Methylprednisolone Sod Succinate 40 Mg/1 Ml Inj IV 40 mg Q12HR VIKKI Administration Morphine Sulfate 2 mg 12/22/20 23:21 Morphine 2 Mg/1 Ml Inj IV Q4H PRN Pain, Moderate (4-6) Multi-Ingred Cream/Lotion/Oil/Oint 1 applic 12/22/20 18:21 Mineral Oil/Petrolatum, White Ophth Oint 3.5 Gm OU Q4HR PRN Dry Eye(s) Ondansetron HCl 4 mg 12/22/20 23:21 Ondansetron 4 Mg/2 Ml Inj IV Q8H PRN Nausea And Vomiting Sodium Chloride 10 ml 12/23/20 10:00 12/24/20 09:21 Sodium Chloride 0.9% 10 Ml Flush Syringe IV 10 ml BID VIKKI Administration Sodium Chloride 10 ml 12/22/20 23:21 Sodium Chloride 0.9% 10 Ml Flush Syringe IV PRN PRN LINE FLUSH Nutrition/Malnutrition Assess - Dietary Evaluation Nutrition/Malnutrition Findings: Nutrition Notes Start: 12/23/20 13:19 Freq: Status: Active Protocol: Document 12/24/20 13:47 AL (Rec: 12/24/20 13:49 AL [id number]) Co-Sign 12/24/20 13:47 LP Nutrition Notes Initial or Follow up Brief Note Current Diagnosis Acute Kidney Injury, Respiratory Failure Other Pertinent Diagnosis Heart Attack, UTI, Lactic Acidosis, Rhabdomyolosis Current Diet NPO Subjective/Other Information F/U for diet education. Pt asleep at time of visit and unable to conduct diet ed. Pt no longer intubated, but still is NPO. Nutrition Intervention Anticipated Discharge Needs: Unable to determine at the time. Follow-Up By: 12/25/20 Additional Comments F/U for diet education needs
[2020-12-24] MEDS ORDERED: LACTATED RINGERS 1,000 ML IV SCH (14:30)
--- NOTE | 2020-12-24 14:34 | Progress Note ---
Assessment and Plan Assessment Acute kidney injury. Ultrasound without acute pathology. Rhabdomyolysis Hyperkalemia, s/p kayexalate x 1 Pyuria Cardiac arrest Acute respiratory failure Leukocytosis Recommendations Continue LR - increased rate further Check urine culture Trend CPK Renally dose medications Avoid nephrotoxins Renal diet Reviewed consult notes Subjective Date of service: 12/24/20 Principal diagnosis: Cardiac arrest Interval history: Extubated. Communicative. Objective - Exam Narrative Exam: General appearance: No acute distress EENT: Anicteric sclera, hearing intact Neck: Supple Respiratory: Normal effort, CTA bilaterally Cardiovascular: RRR, no rub Extremities: No edema Abdominal: Soft, nontender, nondistended Integumentary: Dry, intact Musculoskeletal: No joint swelling or erythema Psychiatric: Appropriate mood/affect, judgment intact Neurologic: No focal deficits, moves all extremities - Vital Signs Vital signs: Vital Signs - 12hr 12/24/20 12/24/20 12/24/20 03:00 03:01 04:00 Temperature 98.1 F Pulse Rate 79 72 73 Pulse Rate [ From Monitor] Respiratory 18 17 Rate Blood Pressure 118/71 119/59 O2 Sat by Pulse 98 97 Oximetry 12/24/20 12/24/20 12/24/20 05:00 06:00 07:00 Temperature Pulse Rate 72 67 68 Pulse Rate [ From Monitor] Respiratory 16 23 33 H Rate Blood Pressure 118/63 120/65 112/65 O2 Sat by Pulse 99 98 98 Oximetry 12/24/20 12/24/20 12/24/20 07:35 08:00 08:08 Temperature 98.5 F 98.5 F Pulse Rate 71 66 Pulse Rate [ 66 From Monitor] Respiratory 17 18 Rate Blood Pressure 116/73 O2 Sat by Pulse 100 99 Oximetry 12/24/20 12/24/20 12/24/20 09:00 09:16 10:00 Temperature Pulse Rate 61 71 Pulse Rate [ From Monitor] Respiratory 15 18 Rate Blood Pressure 117/73 131/85 O2 Sat by Pulse 100 100 95 Oximetry 12/24/20 12/24/20 12/24/20 11:00 12:00 12:04 Temperature Pulse Rate 110 H 74 73 Pulse Rate [ 73 From Monitor] Respiratory 17 18 16 Rate Blood Pressure 131/85 127/75 O2 Sat by Pulse 98 98 97 Oximetry 12/24/20 12/24/20 12:25 13:00 Temperature 97.9 F Pulse Rate 69 Pulse Rate [ From Monitor] Respiratory Rate Blood Pressure 127/75 O2 Sat by Pulse 99 Oximetry - Lab 12/24/20 04:34 12/24/20 04:34 Most recent lab results ABG pH 7.267 (7.320-7.450) L 12/23/20 14:09 ABG O2 Saturation 99.2 (0-100) 12/23/20 14:09 Calcium 8.5 mg/dL (8.4-10.2) 12/24/20 04:34 Medications & Allergies - Medications Allergies/Adverse Reactions: Allergies nut - unspecified Allergy (Verified 12/22/20 21:15) Swelling Active Medications: Generic Name Dose Route Start Last Admin Trade Name Freq PRN Reason Stop Dose Admin Albuterol/Ipratropium 1 ampul 12/23/20 20:00 12/24/20 09:15 Ipratropium/Albuterol Sulfate 3 Ml Ampul.Neb IH Not Given TIDRT VIKKI Arformoterol Tartrate 15 mcg 12/23/20 20:00 12/24/20 09:15 Arformoterol 15 Mcg/2 Ml Nebu IH Not Given Q12HRT VIKKI Azithromycin 500 mg 12/24/20 14:00 12/24/20 13:14 Azithromycin 250 Mg Tab PO 12/27/20 10:01 500 mg QDAY VIKKI Administration Protocol Budesonide 0.5 mg 12/23/20 20:00 12/24/20 09:16 Budesonide 0.5 Mg/2 Ml Nebu IH Not Given Q12HRT VIKKI Famotidine 20 mg 12/25/20 10:00 Famotidine 20 Mg Tab PO DAILY VIKKI Heparin Sodium (Porcine) 5,000 unit 12/23/20 06:00 12/24/20 13:15 Heparin 5,000 Unit/1 Ml Vial SUB-Q 5,000 unit Q8HR VIKKI Administration Hydrophilic Ointment 1 applic 12/22/20 18:21 Lip Therapy Vaseline TP Q2HR PRN Dry Lips Ceftriaxone Sodium 1 gm in 50 mls @ 100 mls/hr 12/23/20 10:00 12/24/20 09:22 Rocephin/Ns 1 Gm/50 Ml IV 12/27/20 10:29 100 mls/hr Q24H VIKKI Administration Protocol Lactated Ringer's 1,000 mls @ 150 mls/hr 12/23/20 09:45 12/24/20 01:19 Lactated Ringers IV 12/25/20 16:24 150 mls/hr DIRECT VIKKI Administration Sodium Chloride 1,000 mls @ 100 mls/hr 12/24/20 12:30 12/24/20 12:39 Nacl 0.9% 1000 Ml IV 100 mls/hr DIRECT VIKKI Administration Sodium Chloride 1,000 mls @ 999 mls/hr 12/24/20 14:30 Nacl 0.9% 1000 Ml IV 12/24/20 15:30 BOLUS ONE Magnesium Hydroxide 30 ml 12/22/20 23:21 Magnesium Hydroxide (Mom) Oral Liqd Udc PO Q4H PRN Constipation Methylprednisolone Sodium Succinate 40 mg 12/23/20 22:00 12/24/20 09:21 Methylprednisolone Sod Succinate 40 Mg/1 Ml Inj IV 40 mg Q12HR VIKKI Administration Morphine Sulfate 2 mg 12/22/20 23:21 Morphine 2 Mg/1 Ml Inj IV Q4H PRN Pain, Moderate (4-6) Multi-Ingred Cream/Lotion/Oil/Oint 1 applic 12/22/20 18:21 Mineral Oil/Petrolatum, White Ophth Oint 3.5 Gm OU Q4HR PRN Dry Eye(s) Ondansetron HCl 4 mg 12/22/20 23:21 Ondansetron 4 Mg/2 Ml Inj IV Q8H PRN Nausea And Vomiting Sodium Chloride 10 ml 12/23/20 10:00 12/24/20 09:21 Sodium Chloride 0.9% 10 Ml Flush Syringe IV 10 ml BID VIKKI Administration Sodium Chloride 10 ml 12/22/20 23:21 Sodium Chloride 0.9% 10 Ml Flush Syringe IV PRN PRN LINE FLUSH
[2020-12-24] MEDS ORDERED: SODIUM CHLORIDE 0.9% 1000 ML 1,000 ML IV ONE (15:30)
--- NOTE | 2020-12-24 15:36 | Consultation ---
History of Present Illness - Reason for Consult Consult date: 12/24/20 bacteremia Requesting physician: PASTORA MATAMOROS - History of Present Illness 25-year-old male with history of asthma, admitted on 12/22/2020 secondary to 2- day history of worsening cough and shortness of breath associated with wheezing. Patient has been using his inhaler without any improvement. Patient was evaluated by EMS and family respiratory distress, became unresponsive, patient was given back while ventilation as well as IVF steroids, epinephrine and magnesium sulfate in route. Patient coded upon arrival in the ED and was intubated. Seems like patient was taken to Xanax. Per mother, he has been taking out some very recent could be exposed to nuts that he is allergic to. On arrival, temperature 97.1, HR 100, RR 12, O2 98, BP 139/73. Initial WBC 14,000. Eosinophils 5%. Lactate 17.3 down to 1.9. Creatinine 1.9. AST 47. CK 8 30. Urinalysis with 50 WBCs, no leukocyte esterase. Urine drug screen positive for marijuana. SARS-CoV-2 PCR negative. Review of Systems: positive in bold print General: fever, chills, malaise Cutaneous: rash, pruritus Head: headaches or injury Eyes: changes in vision, eye pain, double vision Ears: ear pain, ear discharge, ringing or hearing loss Nose: nose bleeding, stuffiness Mouth & throat: bleeding gums, horseness, no dental problems, or swollen glands Neck: no pain, node enlargement/lumps, tyroid enlargement or tenderness Respiratory: SOB, cough, YADAV, wheezing, sputum, hemoptysis, pleuritic chest pain Cardiovascular: chest pain, leg edema, cyanosis, YADAV, orthopnea Musculoskeletal: edema, deformities, pain Gastrointestinal: nausea, vomiting, hematemesis, diarrhea, constipation, melena, bright red blood in stools, fecal incontinence, jaundice Genitourinary/Reproductive: frequent urination, dysuria, hematuria, incontinence Neurogical: seizures, headaches, weakness, paresthesias, loss of speech or vision; memory loss, vertigo, tremors, numbness Psychiatric: stable mood; excessive anxiety, sadness or moodiness Past History Past Medical History: other (Asthma) Past Surgical History: No surgical history Social history: no significant social history Family history: no significant family history Medications and Allergies Allergies Allergy/AdvReac Type Severity Reaction Status Date / Time nut - unspecified Allergy Swelling Verified 12/22/20 21:15 Active Meds: Active Medications Albuterol/Ipratropium (Ipratropium/Albuterol Sulfate 3 Ml Ampul.Neb) 1 ampul IH TIDRT [facility] Last Admin: 12/24/20 14:53 Dose: Not Given Documented by: Arformoterol Tartrate (Arformoterol 15 Mcg/2 Ml Nebu) 15 mcg IH Q12HRT [facility] Last Admin: 12/24/20 09:15 Dose: Not Given Documented by: Azithromycin (Azithromycin 250 Mg Tab) 500 mg PO QDAY [facility]; Protocol Stop: 12/27/20 10:01 Last Admin: 12/24/20 13:14 Dose: 500 mg Documented by: Budesonide (Budesonide 0.5 Mg/2 Ml Nebu) 0.5 mg IH Q12HRT [facility] Last Admin: 12/24/20 09:16 Dose: Not Given Documented by: Famotidine (Famotidine 20 Mg Tab) 20 mg PO DAILY [facility] Heparin Sodium (Porcine) (Heparin 5,000 Unit/1 Ml Vial) 5,000 unit SUB-Q Q8HR [facility] Last Admin: 12/24/20 13:15 Dose: 5,000 unit Documented by: Hydrophilic Ointment (Lip Therapy Vaseline) 1 applic TP Q2HR PRN PRN Reason: Dry Lips Ceftriaxone Sodium (Rocephin/Ns 1 Gm/50 Ml) 1 gm in 50 mls @ 100 mls/hr IV Q24H [facility]; Protocol Stop: 12/27/20 10:29 Last Admin: 12/24/20 09:22 Dose: 100 mls/hr Documented by: Sodium Chloride (Nacl 0.9% 1000 Ml) 1,000 mls @ 100 mls/hr IV DIRECT [facility] Last Admin: 12/24/20 12:39 Dose: 100 mls/hr Documented by: Sodium Chloride (Nacl 0.9% 1000 Ml) 1,000 mls @ 999 mls/hr IV BOLUS ONE Stop: 12/24/20 16:30 Lactated Ringer's (Lactated Ringers) 1,000 mls @ 200 mls/hr IV DIRECT [facility] Stop: 12/31/20 19:29 Magnesium Hydroxide (Magnesium Hydroxide (Mom) Oral Liqd Udc) 30 ml PO Q4H PRN PRN Reason: Constipation Methylprednisolone Sodium Succinate (Methylprednisolone Sod Succinate 40 Mg/1 Ml Inj) 40 mg IV Q12HR [facility] Last Admin: 12/24/20 09:21 Dose: 40 mg Documented by: Morphine Sulfate (Morphine 2 Mg/1 Ml Inj) 2 mg IV Q4H PRN PRN Reason: Pain, Moderate (4-6) Multi-Ingred Cream/Lotion/Oil/Oint (Mineral Oil/Petrolatum, White Ophth Oint 3.5 Gm) 1 applic OU Q4HR PRN PRN Reason: Dry Eye(s) Ondansetron HCl (Ondansetron 4 Mg/2 Ml Inj) 4 mg IV Q8H PRN PRN Reason: Nausea And Vomiting Sodium Chloride (Sodium Chloride 0.9% 10 Ml Flush Syringe) 10 ml IV BID [facility] Last Admin: 12/24/20 09:21 Dose: 10 ml Documented by: Sodium Chloride (Sodium Chloride 0.9% 10 Ml Flush Syringe) 10 ml IV PRN PRN PRN Reason: LINE FLUSH Physical Examination - Physical Exam Narrative exam: General appearance: Alert in NAD pleasant Eyes: anicteric sclerae, moist conjunctivae; no lid-lag; PERRLA HENT: Normocephalic, Atraumatic; normal external ears, nares open, oropharynx clear with moist mucous membranes and no oral thrush; normal hard and soft palate. Neck: supple, tracheal midline, no JVD Lungs: Bilateral wheezing CV: RRR no murmur Abdomen: Soft, non-tender; no masses or hepatosplenomegaly Extremities: no edema, no cyanosis Skin: No rash. Psych: no agitated Neuro: alert and oriented x 3. Moving all extermities - Constitutional Vitals: Vital Signs Temp Pulse Resp BP Pulse Ox 97.9 F 65 16 128/78 96 12/24/20 12:25 12/24/20 14:00 12/24/20 12:04 12/24/20 14:00 12/24/20 14:00 Temperature -Last 24 Hours Temperature 97.9 F Temperature 98.5 F Temperature 98.5 F Temperature 98.1 F Temperature 98.3 F Temperature 98.6 F Temperature 98.3 F Results - Labs CBC & Chem 7: 12/24/20 04:34 12/24/20 04:34 Labs: Abnormal lab results 12/23/20 12/23/20 12/23/20 Range/Units 11:30 22:54 23:30 WBC (4.5-11.0) K/mm3 BUN (9-20) mg/dL Creatinine (0.8-1.3) mg/dL Glucose (75-100) mg/dL POC Glucose 126 H 148 H (70-105) mg/dL Total Creatine Kinase 36418 H (55-170) units/L 12/24/20 12/24/20 12/24/20 Range/Units 04:34 04:34 04:59 WBC 17.5 H (4.5-11.0) K/mm3 BUN 21 H (9-20) mg/dL Creatinine 2.0 H (0.8-1.3) mg/dL Glucose 134 H (75-100) mg/dL POC Glucose 140 H (70-105) mg/dL Total Creatine Kinase 9040 H (55-170) units/L 12/24/20 Range/Units 12:48 WBC (4.5-11.0) K/mm3 BUN (9-20) mg/dL Creatinine (0.8-1.3) mg/dL Glucose (75-100) mg/dL POC Glucose (70-105) mg/dL Total Creatine Kinase 7261 H (55-170) units/L Assessment and Plan Cultures: Blood culture 12/22/2020 gram-positive bacilli 1 out of 4 bottles Sputum culture 12/22/2020 normal respiratory juma Assessment: 25-year-old male with history of asthma, admitted on 12/22/2020 secondary to 2-day history of worsening cough and shortness of breath associated with wheezing became unresponsive upon EMS evaluation: #Leukocytosis: Likely reactive due to steroids and recent code. There is hemophilia likely due to asthma exacerbation. #Gram-positive bacilli in blood cultures: 1 out of 4 bottles likely contaminant #Acute hypoxemic respiratory failure: Likely due to asthma exacerbation/anaphyl axis. SARS-CoV-2 PCR negative. #ITZEL: Likely due to rhabdomyolysis. #Elevated LFTs: Probably reactive due to recent code/respiratory arrest. #Urine drug screen positive for marijuana #UTI: Mild Recommendations: -Monitor leukocytosis -Follow-up blood cultures, likely contaminant -No infiltrates on chest x-ray, consider stopping azithromycin -Continue ceftriaxone total 3 days for UTI Will follow. Odette Somers MD Infectious Diseases Utility Systems Repairer Operator [facility] M [phone] O [phone]
[2020-12-24] MEDS ORDERED: ALBUTEROL 2.5 MG/3 ML NEBU IH PRN (21:16)
[2020-12-25] MEDS: SODIUM CHLORIDE 0.9% 1000 ML 1,000 ML IV SCH (03:34)
[2020-12-25 05:01] VITALS: BP 116/80
[2020-12-25] MEDS: HEPARIN 5,000 UNIT/1 ML VIAL SUB-Q SCH (06:52)
--- NOTE | 2020-12-25 07:43 | Consultation ---
History of Present Illness - Reason for Consult Consult date: 12/25/20 Reason for consult: MHE Requesting physician: AMBERLY MCCONNELL - Chief Complaint Chief complaint: Respiratory Distress - History of Present Psychiatric Illness Per ED arrival: This is a 25-year-old -[place] male who presents to the emergency department with the complaint of respiratory distress. Initially it was thought that the patient was having an asthma attack. He has been complaining of shortness of breath and wheezing over the past 1 to 2 days. Allegedly the patient has been using either his albuterol inhaler or nebulizer without much relief. Patient came home this afternoon and collapsed in the bathroom. EMS was called and found the patient in respiratory distress and unresponsive. He received bag valve ventilation and they attempted to intubate the patient but he was clamped down. He received Solu-Medrol and magnesium and then just before arrival he received a dose of epinephrine. He was brought into room #21 where the patient does appear to have very diminished breath sounds with wheezing heard. He is extremely altered but became very combative. After about 1 to 2 minutes of being combative, the patient suddenly went limp and it was difficult to palpate a pulse. CPR was initiated. The patient was intubated, received 2 rounds of epinephrine, 1 dose of sodium bicarbonate and had ROSC. I was later notified that the patient's girlfriend is outside and says that he may have taken some Xanax and potentially something called "bishop." He has never been to this emergency department previously. PSYCH HPI Patient is a single home four 25-year-old -[place] male with no prior psychiatric history has past medical history of asthma who was admitted to the facility for acute respiratory distress, with subsequent mental health consult for depression concerns. Patient states that he does not have any mental health issues and is not depressed but he feels fine, denies suicidal ideation or homicidal ideation. Patient describes a good and stable mood, denies being depressed or excessively nervous. Patient eats and sleeps well. Patient denies panic attacks, recurrent nightmares or flashbacks. Patient denies symptoms suggestive of OCD or PTSD. Patient denies hallucinations, paranoia, thought interference and no features suggestive of hypomania or dayami. Patiently completely denies suicidal or homicidal thoughts. PAST PSYCHIATRIC HISTORY Diagnoses: None Suicide attempts or Self-harm behavior: None Prior psychiatric hospitalizations: None Substance Abuse history: None Previous psychiatric medications tried: None Outpatient treatment: None PAST MEDICAL HISTORY: Asthma Family Psychiatric History: None reported or documented SOCIAL HISTORY Marital Status: Single Living Arrangements: Rent unemployed Employment Status: Employed Access to guns/weapons: Education: College History of Abuse: None Legal History: None REVIEW OF SYSTEMS Constitutional: Negative for weight loss ENT: Negative for stridor Respiratory: Negative for cough or hemoptysis All other systems reviewed and are negative MENTAL STATUS EXAMINATION General Appearance and Behavior: Age appropriate, good hygiene, wearing appropriate clothes, good eye contact, cooperative polite with questioning. Cooperation: Participating/engaged Psychomotor Behavior: unremarkable and within normal limits Mood: Good Affect and affective range: congruent with mood Thought Process: Fluent/Logical, Thought Content: Within reality, Speech: Normal volume, Regular rate and rhythm, Intellectual Functioning: Average Suicidal Ideation: Denies SI Homicidal Ideation: Denies HI Impulse Control: Unimpaired Insight and Judgment: Normal insight and judgment, Memory: Normal, Attention: Normal, Orientation: Alert, oriented, Diagnoses: Assessment and Plan - Psychiatric problem (1) Encounter for screening examination for mental health and behavioral disorders Current Visit: Yes Status: Acute Z13.30 Treatment Plan MEDICATIONS: Risks, benefits and alternatives of medications discussed with the patient, questions answered and consent obtained from patient. PSYCHOTHERAPY: Supportive psychotherapy provided MEDICAL: Per primary team DELIRIUM PRECAUTIONS: Please re-orient patient frequently, keep lights on during the day, and minimize benzodiazepines and opiates as these medications could worsen patient's confusion. 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 Case discussed with Dr. Mtz who agrees with current disposition LEGAL STATUS: 1013 FOLLOW-UP: Will sign off Thank you for the consult. Please contact with any questions and/or concerns. Medications and Allergies Allergies Allergy/AdvReac Type Severity Reaction Status Date / Time nut - unspecified Allergy Swelling Verified 12/22/20 21:15 Home Medications Medication Instructions Recorded Confirmed Last Taken Type Albuterol Sulfate [Albuterol 0.63% 0.83 mg IH TID PRN #1 12/25/20 Unknown Rx NEBS] Fluticasone Propion/Salmeterol 1 each IH BID #1 aer.pw.bas 12/25/20 Unknown Rx [Airduo Digihaler 113-14 Mcg] Prednisone [predniSONE 10 mg 10 mg PO .TAPER #1 tab.ds.pk 12/25/20 Unknown Rx (6-Day Pack, 21 Tabs)] Active Meds: Active Medications Albuterol (Albuterol 2.5 Mg/3 Ml Nebu) 2.5 mg IH Q4HRT PRN PRN Reason: Shortness Of Breath Albuterol/Ipratropium (Ipratropium/Albuterol Sulfate 3 Ml Ampul.Neb) 1 ampul IH TIDRT [facility] Last Admin: 12/24/20 20:53 Dose: 1 ampul Documented by: Arformoterol Tartrate (Arformoterol 15 Mcg/2 Ml Nebu) 15 mcg IH Q12HRT [facility] Last Admin: 12/24/20 20:53 Dose: 15 mcg Documented by: Azithromycin (Azithromycin 250 Mg Tab) 500 mg PO QDAY [facility]; Protocol Stop: 12/27/20 10:01 Last Admin: 12/24/20 13:14 Dose: 500 mg Documented by: Budesonide (Budesonide 0.5 Mg/2 Ml Nebu) 0.5 mg IH Q12HRT [facility] Last Admin: 12/24/20 20:53 Dose: 0.5 mg Documented by: Famotidine (Famotidine 20 Mg Tab) 20 mg PO DAILY [facility] Heparin Sodium (Porcine) (Heparin 5,000 Unit/1 Ml Vial) 5,000 unit SUB-Q Q8HR [facility] Last Admin: 12/25/20 06:52 Dose: 5,000 unit Documented by: Hydrophilic Ointment (Lip Therapy Vaseline) 1 applic TP Q2HR PRN PRN Reason: Dry Lips Ceftriaxone Sodium (Rocephin/Ns 1 Gm/50 Ml) 1 gm in 50 mls @ 100 mls/hr IV Q24H [facility]; Protocol Stop: 12/27/20 10:29 Last Admin: 12/24/20 09:22 Dose: 100 mls/hr Documented by: Sodium Chloride (Nacl 0.9% 1000 Ml) 1,000 mls @ 100 mls/hr IV DIRECT [facility] Last Admin: 12/25/20 03:34 Dose: 100 mls/hr Documented by: Lactated Ringer's (Lactated Ringers) 1,000 mls @ 200 mls/hr IV DIRECT [facility] Stop: 12/31/20 19:29 Last Admin: 12/25/20 03:33 Dose: 200 mls/hr Documented by: Magnesium Hydroxide (Magnesium Hydroxide (Mom) Oral Liqd Udc) 30 ml PO Q4H PRN PRN Reason: Constipation Methylprednisolone Sodium Succinate (Methylprednisolone Sod Succinate 40 Mg/1 Ml Inj) 40 mg IV Q12HR [facility] Last Admin: 12/24/20 21:26 Dose: 40 mg Documented by: Morphine Sulfate (Morphine 2 Mg/1 Ml Inj) 2 mg IV Q4H PRN PRN Reason: Pain, Moderate (4-6) Multi-Ingred Cream/Lotion/Oil/Oint (Mineral Oil/Petrolatum, White Ophth Oint 3.5 Gm) 1 applic OU Q4HR PRN PRN Reason: Dry Eye(s) Ondansetron HCl (Ondansetron 4 Mg/2 Ml Inj) 4 mg IV Q8H PRN PRN Reason: Nausea And Vomiting Sodium Chloride (Sodium Chloride 0.9% 10 Ml Flush Syringe) 10 ml IV BID [facility] Last Admin: 12/24/20 21:26 Dose: 10 ml Documented by: Sodium Chloride (Sodium Chloride 0.9% 10 Ml Flush Syringe) 10 ml IV PRN PRN PRN Reason: LINE FLUSH Last Admin: 12/25/20 03:34 Dose: 10 ml Documented by: Mental Status Exam - Vital signs Last Vital Signs Temp 98.6 F 12/25/20 04:46 Pulse 64 12/25/20 04:46 Resp 18 12/25/20 04:46 BP 116/80 12/25/20 04:46 Pulse Ox 96 12/25/20 04:46 Results Result Diagrams: 12/24/20 04:34 12/25/20 08:54 Abnormal lab results 12/24/20 Range/Units 12:48 Total Creatine Kinase 7261 H (55-170) units/L All other labs normal. Assessment and Plan - Psychiatric problem (1) Encounter for screening examination for mental health and behavioral disorders Current Visit: Yes Status: Acute
[2020-12-25] MEDS: BUDESONIDE 0.5 MG/2 ML NEBU IH SCH (08:27)
[2020-12-25] MEDS: ARFORMOTEROL 15 MCG/2 ML NEBU IH SCH (08:27)
[2020-12-25] MEDS: IPRATROPIUM/ALBUTEROL SULFATE 3 ML AMPUL.NEB IH SCH ×2 (08:27→14:30)
[2020-12-25] MEDS: cefTRIAXone/NS 1 GM/50 ML 1 GM/50 ML BAG IV SCH (09:01)
[2020-12-25] MEDS: AZITHROMYCIN 250 MG TAB PO SCH (09:06)
[2020-12-25] MEDS: methylPREDNISolone Sod Succinate 40 MG/1 ML INJ IV SCH (09:07)
--- NOTE | 2020-12-25 09:52 | Progress Note ---
Assessment and Plan Respiratory failure s/p extubation negative for COVID-19 infection History of asthma Rhabdomyolysis -trending downwards Leukocytosis Renal failure with a creatinine of 2.3 Elevated ammonia levels -resolved An echocardiogram shows normal left ventricular function, ejection fraction 50- 55%. Recommend: Conservative cardiac management. Will follow intermittently. Subjective Date of service: 12/25/20 Principal diagnosis: Cardiac arrest Interval history: Patient denies chest pain, SOB, and palpitations. No cardiac complaints. Objective Vital Signs Temp Pulse Pulse Pulse Resp Resp BP 12/25/20 04:46 98.6 F 64 18 116/80 12/25/20 01:00 69 18 12/24/20 23:39 98.4 F 69 18 135/77 12/24/20 22:00 69 12/24/20 20:58 12/24/20 20:57 78 20 12/24/20 19:23 98.8 F 60 20 120/64 12/24/20 17:13 97.7 F 62 18 136/78 12/24/20 16:50 74 128/74 12/24/20 16:40 66 128/74 12/24/20 16:30 128/74 12/24/20 16:00 97.7 F 68 67 16 129/75 12/24/20 15:00 74 129/78 12/24/20 14:00 65 128/78 12/24/20 13:00 69 127/75 12/24/20 12:25 97.9 F 12/24/20 12:04 73 73 16 12/24/20 12:00 74 18 127/75 12/24/20 11:00 110 H 17 131/85 12/24/20 10:00 71 18 131/85 Pulse Ox 12/25/20 04:46 96 12/25/20 01:00 96 12/24/20 23:39 89 12/24/20 22:00 12/24/20 20:58 95 12/24/20 20:57 12/24/20 19:23 95 12/24/20 17:13 95 12/24/20 16:50 97 12/24/20 16:40 99 12/24/20 16:30 97 12/24/20 16:00 97 12/24/20 15:00 97 12/24/20 14:00 96 12/24/20 13:00 99 12/24/20 12:25 12/24/20 12:04 97 12/24/20 12:00 98 12/24/20 11:00 98 12/24/20 10:00 95 - Physical Examination General: No Apparent Distress HEENT: Positive: PERRL Neck: Positive: trachea midline Cardiac: Positive: Reg Rate and Rhythm Lungs: Positive: Normal Breath Sounds Neuro: Positive: Grossly Intact Extremities: Absent: edema - Allied health notes Allied health notes reviewed: nursing
[2020-12-25] MEDS ORDERED: FAMOTIDINE 20 MG TAB PO SCH (10:00)
[2020-12-25 10:19] LABS: BUN/Creatinine Ratio 12; Blood Urea Nitrogen 16 mg/dL (9-20); Calcium 8.9 mg/dL (8.4-10.2); Hemolysis Index 7
--- NOTE | 2020-12-25 14:38 | Progress Note ---
Assessment and Plan Cultures: Blood culture 12/22/2020 diphtheroids 1 out of 4 bottles Sputum culture 12/22/2020 normal respiratory juma Assessment: 25-year-old male with history of asthma, admitted on 12/22/2020 secondary to 2-day history of worsening cough and shortness of breath associated with wheezing became unresponsive upon EMS evaluation: #Leukocytosis: Likely reactive due to steroids and recent code. There is eosino philia likely due to asthma exacerbation. #Diphtheroids in blood cultures: 1 out of 4 bottles likely contaminant #Acute hypoxemic respiratory failure: Likely due to asthma exacerbation/anaphylaxis. SARS-CoV-2 PCR negative. #ITZEL: Likely due to rhabdomyolysis. Improving. #Elevated LFTs: Probably reactive due to recent code/respiratory arrest. #Urine drug screen positive for marijuana #UTI: Mild Recommendations: -Monitor leukocytosis -Follow-up blood cultures, likely contaminant -No infiltrates on chest x-ray, consider stopping azithromycin -Continue ceftriaxone D3 of 3 will sign off please call with any question Odette Somers MD Infectious Diseases Account Assistant [facility] M [phone] O [phone] Subjective Date of service: 12/25/20 Principal diagnosis: Ac hypoxemic resp failure; S/P Cardiac arrest; ITZEL; Bacteremia; Rhabdomyoly Interval history: No acute events, no fever. Objective - Exam Narrative Exam: General appearance: Alert in NAD limited Eyes: anicteric sclerae, moist conjunctivae; no lid-lag; PERRLA HENT: Normocephalic, Atraumatic; normal external ears, nares open, limited Neck: supple, tracheal midline, no JVD Lungs: Limited CV: RRR no murmur Abdomen: Soft, non-tender; no masses or hepatosplenomegaly Extremities: no edema, no cyanosis Skin: No rash. Psych: no agitated Neuro: alert and oriented x 3. Moving all extermities - Constitutional Vitals: Vital Signs Temp Pulse Resp BP Pulse Ox 98.6 F 64 20 116/80 97 12/25/20 04:46 12/25/20 10:00 12/25/20 10:35 12/25/20 04:46 12/25/20 14:30 Temperature -Last 24 Hours Temperature 98.6 F Temperature 98.4 F Temperature 98.8 F Temperature 97.7 F Temperature 97.7 F - Labs CBC & Chem 7: 12/24/20 04:34 12/25/20 08:54 Labs: Abnormal lab results 12/25/20 Range/Units 08:15 POC Glucose 112 H (70-105) mg/dL
[2020-12-25 14:55] LABS: Hematocrit 38.2 % (35.5-45.6); Hemoglobin 13.2 gm/dl (11.8-15.2); Mean Corpuscular HGB Conc 34 % (32-34); Mean Corpuscular Volume 95 fl (84-94); Platelet Count 169 K/mm3 (140-440); Red Blood Count 4.05 M/mm3 (3.65-5.03); Red Cell Distribution Width 13.1 % (13.2-15.2)
[2020-12-25 17:29] LABS: Total Cells Counted 100
[2020-12-25 17:30] LABS: RBC Morphology Normal
--- NOTE | 2020-12-28 11:27 | Discharge Summary ---
Providers - Providers Date of Admission: 12/22/20 22:15 Attending physician: ZACARIAS GUADALUPE MD 12/22/20 22:15 Consult to Physician [CONS] Routine Comment: Consulting Provider: PASTORA MATAMOROS Physician Instructions: Reason For Exam: CCU management 12/22/20 23:22 Consult to Dietitian/Nutrition [CONS] Routine Physician Instructions: Reason For Exam: Reason for Consult: Diet education 12/23/20 07:35 Consult to Physician [CONS] Routine Comment: Consulting Provider: JAVAD BARRETO Physician Instructions: Reason For Exam: ITZEL 12/23/20 07:40 Consult to Cardiology [CONS] Routine Consulting Provider: MARCUS KENT Reason For Exam: Cardiac arrest 12/24/20 12:51 Consult to Physician [CONS] Routine Comment: Consulting Provider: MARC PHELPS Physician Instructions: Reason For Exam: Bacteremia 12/24/20 16:13 Consult to Physician [CONS] Routine Comment: Consulting Provider: DYLON TRACY Physician Instructions: Reason For Exam: DEPRESSION Primary care physician: PREKINDERGARTEN TEACHER Hospitalization Reason for admission: Acute respiratory distress Condition: Good Hospital course: 25-year-old -[place] male with known history of asthma presents to the emergency room today with respiratory distress. He has been having shortness of breath and wheezing over the past 1 to 2 days. Was also said to have been using his inhaler without any significant improvement. EMS was called and patient was found to be in respiratory distress and became unresponsive. He received bag valve ventilation. Was said to have received steroids, epinephrine and magnesium sulfate prior to my evaluation. Patient was said to have coded upon arrival in the emergency room and was subsequently intubated. Further information gathered from the ER staff indicates that patient may have taking some Xanax and something called 'bishop'. 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 Work-up in the emergency room today reveals elevated lactic acid level, elevated creatinine of 1.9, total creatinine kinase of 830, and urinalysis revealing UTI. Chest x-ray and CT scan of the head were unremarkable. UDS was positive for marijuana. Patient is being admitted for anaphylactic reaction, asthma exacerbation and UTI. 12/23/20: Cardiology input noted, no acute cardiac issues, counselling provided on TSH use. Continue gentle hydration and monitor, Worsening WBC likely from steroids. Renal faliure noted, will monitor in the setting of rhabdomyolysis Discussed with father outside the room. Anticipate the patient will be extubated today. 12/24: No sepsis, Patient extubated, blood cultures growing GNR 1/2, Counselling provided on tobacco cessation, 15 mins, patients verbalized understanding, plans discussed with patient and consultants. Anticipate discharge tomorrow. 12/25: Patient clinically stable at this time for discharge will follow with coat joiner and celery stripper outpatient extensive counseling given to him on need to quit substance abuse tobacco use in addition. He verbalized understanding. Bacteremia was determined to be a contaminant. (1) Acute respiratory failure- Now extubated Current Visit: Yes Status: Acute Qualifiers: Respiratory failure complication: hypercapnia Qualified Code(s): J96.02 - Acute respiratory failure with hypercapnia Plan to address problem: Possibly secondary to asthma exacerbation versus anaphylactic reaction We will place consult to stud setter for further evaluation and recommendation. (2) Cardiac arrest Current Visit: Yes Status: Acute Plan to address problem: Patient successfully resuscitated in the emergency room. He is currently intubated. We will consult cardiology for evaluation. (3) ITZEL (acute kidney injury) secondary to ATN as a complication from rhab domyolysis Current Visit: Yes Status: Acute Plan to address problem: Patient placed on IV fluid normal saline. We will monitor BUN and creatinine. Consult placed to nephrology for evaluation. (4) Lactic acidosis Current Visit: Yes Status: Acute Plan to address problem: We will continue patient on IV fluid and monitor lactic acid level. (5) UTI (urinary tract infection) Current Visit: Yes Status: Acute Qualifiers: Urinary tract infection type: acute cystitis Hematuria presence: without hematuria Qualified Code(s): N30.00 - Acute cystitis without hematuria Plan to address problem: Patient placed on empiric IV antibiotics. Will await urine culture result. (6) Rhabdomyolysis Current Visit: Yes Status: Acute Plan to address problem: We will monitor for creatinine kinase level and continue on IV fluid. (7) THC use abuse extensive counseling provided to the patient verbalized understanding 50 minutes counseling done (8) DVT prophylaxis Current Visit: Yes Status: Acute Plan to address problem: Patient placed on subcutaneous heparin. (9) Full code status Current Visit: Yes Status: Acute Plan to address problem: Patient is a full code. Disposition: DC-01 TO HOME OR SELFCARE Final Discharge Diagnosis (Prints w/discharge instructions): Acute hypoxic respiratory failure secondary to cardiac arrest Time spent for discharge: 35 minutes Core Measure Documentation - Palliative Care Palliative Care/ Comfort Measures: Not Applicable - Core Measures Any of the following diagnoses?: none Exam - Physical Exam Narrative exam: General appearance: Present: well-nourished - EENT Eyes: Present: PERRL, EOM intact. Absent: scleral icterus ENT: hearing intact, clear oral mucosa, dentition normal - Neck Neck: Present: supple, normal ROM - Respiratory Respiratory effort: improved breathing Respiratory: bilateral: wheezing just at bases - Cardiovascular Rhythm: regular Heart Sounds: Present: S1 & S2. Absent: gallop, systolic murmur, diastolic murmur, rub, click - Extremities Extremities: no ischemia, pulses intact, pulses symmetrical, No edema, normal temperature, normal color, Full ROM Peripheral Pulses: within normal limits - Abdominal General gastrointestinal: Present: soft, non-tender, non-distended, normal bowel sounds. Absent: mass - Integumentary Integumentary: Present: clear, warm, dry. Absent: rash - Musculoskeletal Musculoskeletal: strength equal bilaterally - Psychiatric Psychiatric: Anxious, intact judgment & insight, memory intact, cooperative - Neurologic Neurologic: CNII-XII intact, no focal deficits, moves all extremities - Constitutional Vitals: Temp Pulse Resp BP Pulse Ox 98.6 F 64 20 116/80 97 12/25/20 04:46 12/25/20 10:00 12/25/20 10:35 12/25/20 04:46 12/25/20 14:30 Plan Activity: advance as tolerated, fall precautions Diet: low fat Special Instructions: record daily weights, record daily BP diary, smoking cessation Follow up with: MARC PHELPS MD [Staff Physician] - 7 Days PRIMARY CAREMD [Primary Care Provider] - 3-5 Days MARCOS HARPER MD [Staff Physician] - 7 Days QUAN HENDRICKSON MD [Staff Physician] - 7 Days Prescriptions: Fluticasone Propion/Salmeterol [Airduo Digihaler 113-14 Mcg] 1 each IH BID #1 aer.pw.bas Albuterol Sulfate [Albuterol 0.63% NEBS] 0.83 mg IH TID PRN #1 PRN Reason: Wheezing Prednisone [predniSONE 10 mg (6-Day Pack, 21 Tabs)] 10 mg PO .TAPER #1 tab.ds.pk
== END 2020-12-25 15:39 | disposition home or self-care (01) | DRG 208 ==
LOC: EDBD → ED 18:05 → CC1 22:15 → 4A 12-24 17:30
PROVIDERS: ADMIT Internal Medicine Geriatric Medicine; ATTEND Internal Medicine
PROC: 0BH17EZ Insertion of Endotracheal Airway into Trachea, Via Natural or Artificial Opening (ICD-10-PCS; principal; 2020-12-22)
PROC: 5A1935Z Respiratory Ventilation, Less than 24 Consecutive Hours (ICD-10-PCS; 2020-12-22)
PROC: 4A033R1 Measurement of Arterial Saturation, Peripheral, Percutaneous Approach (ICD-10-PCS; 2020-12-22)
PROC: 5A12012 Performance of Cardiac Output, Single, Manual (ICD-10-PCS; 2020-12-22)
PROC: 06HY33Z Insertion of Infusion Device into Lower Vein, Percutaneous Approach (ICD-10-PCS; 2020-12-22)
PROC: 0BP1XDZ Removal of Intraluminal Device from Trachea, External Approach (ICD-10-PCS; 2020-12-24)
DX: J96.02 Acute respiratory failure with hypercapnia (principal); I46.9 Cardiac arrest, cause unspecified; N17.0 Acute kidney failure with tubular necrosis; N39.0 Urinary tract infection, site not specified; E87.2 Acidosis; J45.901 Unspecified asthma with (acute) exacerbation; M62.82 Rhabdomyolysis; Z20.822 Contact with and (suspected) exposure to COVID-19; E87.5 Hyperkalemia; J96.01 Acute respiratory failure with hypoxia; R13.12 Dysphagia, oropharyngeal phase; D72.10 Eosinophilia, unspecified; Z91.018 Allergy to other foods; Z13.30 Encounter for screening examination for mental health and behavioral disorders, unspecified
CPT/HCPCS: 36415; 70450; 71045; 76770; 80048; 80053; 80307; 80320; 81001; 82140; 82550; 82805; 82962; 84484; 85007; 85025; 85027; 85379; 85610; 85730; 87040; 87070; 87086; 87205; 93005; 93306; 94002; 94003; 94640; G0378; G0480; J0171; J0456; J0696; J1644; J2250; J2920; J3010; J7030; J7120; U0003

== ENCOUNTER 2021-11-22 18:57 | Emergency (ER) | payer OTHER ==
[2021-11-22] MEDS ORDERED: methylPREDNISolone Sod Suc 125 MG in SODIUM CHLORIDE 0.9% 100 ML IV ONE (19:05)
[2021-11-22] MEDS ORDERED: IPRATROPIUM/ALBUTEROL SULFATE 3 ML AMPUL.NEB IH ONE ×3 (19:06→20:16)
--- NOTE | 2021-11-22 19:10 | Emergency Department Report ---
HPI - General Chief Complaint: Dyspnea/Respdistress Time Seen by Provider: 11/22/21 19:05 - HPI HPI: 1 day of moderate shortness of breath with wheezing and a dry cough. The patient has a history of asthma and has been intubated in the past. He has used his albuterol MDI several times today and also got his doctor to call him some prednisone of unknown dose that he took earlier prior to arrival. He denies chest pain nausea vomiting fever chills or any other associated symptoms. Exertion makes it worse and staying still makes it better as well as the MDI does make it somewhat better. ED Past Medical Hx - Past Medical History Hx Asthma: Yes - Social History Smoking Status: Unknown if ever smoked - Medications Home Medications: Home Medications Medication Instructions Recorded Confirmed Last Taken Type Albuterol Sulfate [Albuterol 0.63% 0.83 mg IH TID PRN #1 12/25/20 Unknown Rx NEBS] Fluticasone Propion/Salmeterol 1 each IH BID #1 aer.pw.bas 12/25/20 Unknown Rx [Airduo Digihaler 113-14 Mcg] Prednisone [predniSONE 10 mg 10 mg PO .TAPER #1 tab.ds.pk 12/25/20 Unknown Rx (6-Day Pack, 21 Tabs)] Albuterol Mdi (or & Nicu Only) 2 puff IH QID PRN #8.5 gram 11/22/21 Unknown Rx [ProAir HFA Inhaler] Albuterol Sulfate [Albuterol 0.63% 0.63 mg IH Q6H #30 ml 11/22/21 Unknown Rx NEBS] predniSONE [Deltasone] 50 mg PO QDAY 5 Days #5 tab 11/22/21 Unknown Rx ED Review of Systems ROS: Stated complaint: CHEST PAIN/ELKIN Other details as noted in HPI Comment: All other systems reviewed and negative Physical Exam - Physical Exam Vital Signs: Vital Signs 11/22/21 19:00 Temperature 98.1 F Pulse Rate 83 Respiratory 20 Rate Blood Pressure 140/80 [Right] O2 Sat by Pulse 96 Oximetry Physical Exam: Physical Exam: Constitutional: AAOX3. No acute distress. No diaphoresis. HENT: Normocephalic. Pupils equal and reactive. No throat edema or erythema. Neck: No neck rigidity or tenderness. Cardiovascular: Heart sounds: No murmur. Normal rate and regular rhythm. Pulses: Intact distal pulses. Lungs: There is diffuse wheezing with prolonged expiratory phase. Chest wall: No tenderness. Abdominal: No distension. No mass/pulsatile mass. No abdominal tenderness, guar ding nor rebound. Musculoskeletal: Normal range of motion. No edema, No calf TTP. Skin: Warm and dry. Neurological: Alert and oriented to person, place, and time. Psychiatric: Mood and affect normal. Normal cognition and memory. Normal judgement. ED Course Vital Signs 11/22/21 19:00 Temperature 98.1 F Pulse Rate 83 Respiratory 20 Rate Blood Pressure 140/80 [Right] O2 Sat by Pulse 96 Oximetry - Reevaluation(s) Reevaluation #1: 11/22/21 20:16 The patient responded well to the nebulizers we gave him with better air movement and less wheezing. He will continue taking the steroids that he was given and return if any other issues arise otherwise follow-up with his PCP. ED Medical Decision Making - Lab Data Result diagrams: 11/22/21 19:27 Critical care attestation.: If time is entered above; I have spent that time in minutes in the direct care of this critically ill patient, excluding procedure time. ED Disposition Clinical Impression: Asthma Disposition: 01 HOME / SELF CARE / HOMELESS Is pt being admited?: No Does the pt Need Aspirin: No Condition: Stable Instructions: Asthma (ED), Asthma, Adult Prescriptions: Albuterol Sulfate [Albuterol 0.63% NEBS] 0.63 mg IH Q6H #30 ml predniSONE [Deltasone] 50 mg PO QDAY 5 Days #5 tab Albuterol Mdi (or & Nicu Only) [ProAir HFA Inhaler] 2 puff IH QID PRN #8.5 gram PRN Reason: Shortness Of Breath Print Language: LATVIAN
[2021-11-22 19:44] LABS: Basophils % (Auto) 0.5 % (0.0-1.8); Eosinophils # (Auto) 0.5 K/mm3 (0.0-0.4); Eosinophils % (Auto) 5.5 % (0.0-4.3); Hematocrit 42.4 % (35.5-45.6); Hemoglobin 14.2 gm/dl (11.8-15.2); Lymphocytes # (Auto) 1.1 K/mm3 (1.2-5.4); Lymphocytes % (Auto) 12.4 % (13.4-35.0); Mean Corpuscular HGB Conc 34 % (32-34); Mean Corpuscular Volume 94 fl (84-94); Monocytes # (Auto) 0.5 K/mm3 (0.0-0.8); Monocytes % (Auto) 5.3 % (0.0-7.3); Platelet Count 231 K/mm3 (140-440); Red Blood Count 4.53 M/mm3 (3.65-5.03); Red Cell Distribution Width 14.3 % (13.2-15.2)
--- NOTE | 2021-11-22 19:52 | XRay Report ---
CHEST 1 VIEW 11/22/2021 7:10 PM INDICATION / CLINICAL INFORMATION: Shortness of breath, history of asthma, history of prior trach COMPARISON: 12/24/2020 FINDINGS: SUPPORT DEVICES: None. HEART / MEDIASTINUM: No significant abnormality. LUNGS / PLEURA: No significant pulmonary or pleural abnormality. No pneumothorax. ADDITIONAL FINDINGS: No significant additional findings. IMPRESSION: 1. No acute findings. Signer Name: Matt Smiley MD Signed: 11/22/2021 7:48 PM Workstation Name: [id number]
[2021-11-22 20:30] LABS: Alanine Aminotransferase 11 units/L (7-56); Albumin 4.5 g/dL (3.9-5); BUN/Creatinine Ratio 7; Blood Urea Nitrogen 8 mg/dL (9-20); Hemolysis Index 20
[2021-11-22 20:50] VITALS: BP 129/80
== END 2021-11-22 20:50 | disposition home or self-care (01) ==
LOC: ED 18:57
DX: J45.909 Unspecified asthma, uncomplicated (principal)
CPT/HCPCS: 36415; 71045; 80053; 85025; 94640; 96365; 99284; J2930